=== PATIENT | female | born 1960 | race Caucasian/White ===

== ENCOUNTER 2020-03-11 10:04 | Outpatient (REF) | payer OTHER, SELFPAY ==
--- NOTE | 2020-03-11 | PFT_ITS ---
Forced vital capacity and FEV1 are both moderately decreased. TGE90-09 and MVV are normal. Post bronchodilator therapy, there is no significant change. Total lung capacity and residual volume are both moderately decreased. Diffusion capacity is markedly decreased. CONCLUSION: Moderately severe restrictive pulmonary disorder. No significant obstructive airway disorder. MD TATIANA Lazcano/MODL / [id number]
== END 2020-03-11 10:05 | disposition home or self-care (01) ==
LOC: HO.RESP 10:04
PROVIDERS: Visit Provider Internal Medicine
DX: J45.40 Moderate persistent asthma, uncomplicated (principal)
CPT/HCPCS: 94060; 94727; 94729

== ENCOUNTER → 2020-06-16 13:44 | Outpatient (BNVA) | payer OTHER, SELFPAY | PROVIDERS: PCP Nurse Practitioner Family; Visit Provider Internal Medicine | DX: J44.9 Chronic obstructive pulmonary disease, unspecified (principal); J98.4 Other disorders of lung; J06.0 Acute laryngopharyngitis | CPT/HCPCS: 99212 ==

== ENCOUNTER → 2020-10-14 13:59 | Outpatient (BNVA) | payer OTHER, SELFPAY | PROVIDERS: PCP Nurse Practitioner Family; Visit Provider Internal Medicine | DX: J44.9 Chronic obstructive pulmonary disease, unspecified (principal); J98.4 Other disorders of lung; R09.02 Hypoxemia | CPT/HCPCS: 99212 ==

== ENCOUNTER 2021-01-08 10:45 | Outpatient (REF) | payer OTHER, SELFPAY ==
--- NOTE | ~2021-01-08 | MM_ITS ---
EXAMINATION: MM SCREENING DIGITAL BREAST TOMOSYNTHESIS, BILATERAL CLINICAL INFORMATION: Screening. Asymptomatic. The lifetime risk of breast cancer based on the Tyrer-Cuzick Model is 8%. COMPARISON: Mammography: 04/14/2011 TECHNIQUE: Digital breast tomosynthesis is performed in both the craniocaudal and mediolateral oblique views along with computer-aided detection (CAD). Synthesized 2D images are generated from the tomosynthesis. FINDINGS: There are scattered areas of fibroglandular density (ACR BI-RADS breast composition Category b). Breast tissue composition borders on predominantly fatty. Background fibroglandular and stromal densities are stable. There are no abnormal calcifications. The axilla and skin contours are unremarkable. MM/MM tomosynthesis screening BI IMPRESSION: No mammographic evidence of malignancy. ASSESSMENT: BI-RADS 1: Negative RECOMMENDATION: Routine annual mammography screening. This patient's information was entered into a reminder system with a target due date for their next mammogram.
--- NOTE | ~2021-01-08 | XR_ITS ---
EXAMINATION: XR SHOULDER, LEFT CLINICAL INFORMATION: Fall, trauma, pain left shoulder. COMPARISON: CT chest noncontrast 03/11/2017 TECHNIQUE: The left shoulder is imaged in 4 views. FINDINGS: There is no fracture or dislocation. The acromioclavicular alignment is normal. There are no visible perihumeral rotator cuff calcifications. The left lung shows no pneumothorax or pleural reaction. There is diffuse coarsening of the interstitial markings, new finding since 2017. XR/XR shoulder LT min 2V IMPRESSION: 1. No fracture or dislocation. 2. Coarsening interstitial markings left lung. No pneumothorax.
== END 2021-01-08 10:46 | disposition home or self-care (01) ==
LOC: HO.MAMMO 10:45
PROVIDERS: PCP Nurse Practitioner Family; Visit Provider Nurse Practitioner Family
DX: Z12.31 Encounter for screening mammogram for malignant neoplasm of breast (principal); M25.512 Pain in left shoulder
CPT/HCPCS: 73030; 77063; 77067

== ENCOUNTER → 2021-02-11 13:30 | Outpatient (BNVA) | payer OTHER, SELFPAY | PROVIDERS: PCP Nurse Practitioner Family; Visit Provider Internal Medicine | DX: J44.9 Chronic obstructive pulmonary disease, unspecified (principal); J98.4 Other disorders of lung; R09.02 Hypoxemia; R05 Cough | CPT/HCPCS: 99212 ==

== ENCOUNTER → 2021-03-25 13:45 | Outpatient (BNVA) | payer OTHER, SELFPAY | PROVIDERS: PCP Nurse Practitioner Family; Visit Provider Internal Medicine | DX: J44.9 Chronic obstructive pulmonary disease, unspecified (principal); J98.4 Other disorders of lung; J06.0 Acute laryngopharyngitis; R09.02 Hypoxemia; R05.9 Cough, unspecified | CPT/HCPCS: Q3014 ==

== ENCOUNTER → 2021-07-06 15:36 | Outpatient (BNVA) | payer OTHER, SELFPAY | PROVIDERS: PCP Nurse Practitioner Family; Visit Provider Internal Medicine | DX: J44.9 Chronic obstructive pulmonary disease, unspecified (principal); J98.4 Other disorders of lung; R09.02 Hypoxemia; R05.9 Cough, unspecified | CPT/HCPCS: 99212 ==

== ENCOUNTER → 2021-09-07 10:58 | Outpatient (BNVA) | payer OTHER, SELFPAY | PROVIDERS: PCP Nurse Practitioner Family; Referring Provider Nurse Practitioner Family; Visit Provider Internal Medicine | DX: R06.02 Shortness of breath (principal); J98.8 Other specified respiratory disorders; Z99.81 Dependence on supplemental oxygen | CPT/HCPCS: 93005; 99202 ==

== ENCOUNTER → 2021-09-17 08:41 | Outpatient (REF) | payer OTHER, SELFPAY ==
--- NOTE | 2021-09-17 08:44 | CA_ITS ---
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 Normal LV systolic function with grade 1 diastolic dysfunction 2. Normal cardiac valvular Doppler 3. Normal RV systolic pressure 4. No gross pericardial effusion Findings Left Ventricle Normal left ventricular size, thickness, and systolic function. The visually estimated ejection fraction is between 60-65%. Spectral Doppler is indicative of an impaired relaxation filling pattern. E/E prime ratio is <8, consistent with normal filling pressures. Evidence suggests grade I (mild) diastolic dysfunction. Right Ventricle Normal right ventricular cavity size and systolic function. Atria The left atrium is normal in size. Interatrial shunt cannot be excluded. The right atrium was not well visualized. Aortic Valve Normal aortic valve structure and function. There is no aortic valve stenosis. There is no aortic valve regurgitation. Mitral Valve Normal mitral valve structure and function. There is trace mitral valve regurgitation. There is no mitral valve stenosis. Pulmonic Valve The pulmonic valve was not well visualized. Tricuspid Valve Likely normal tricuspid valve structure and function. There is trace tricuspid valve regurgitation. The right ventricular systolic pressure is normal. The right ventricular systolic pressure is 19 mmHg. Normal right atrial pressure. There is no evidence of pulmonary hypertension. Great Vessels All visible segments of the aorta are normal in size. The pulmonary artery was not well visualized. Venous The inferior vena cava is normal in size and collapses greater than 50% with inspiration. Pericardium/Pleural There is no evidence of pericardial effusion. Prior Study Comparison no previous study in the last 5 years for comparison Measurements 2D Linear Measurements IVSd: 1.02 0.6-0.9/0.6-1.0 cm LVIDd: 3.73 3.9-5.3/4.2-5.9 cm LVIDd Index: 2.29 2.4-3.2/2.2-3.1 cm/m2 LVIDs: 2.26 2.0-3.6 cm LVPWd: 0.98 0.7-1.1 cm LA Diam: 3.10 2.7-3.8/3.0-4.0 cm LAIDs Index: 1.90 1.5-2.3 cm/m2 LV Mass: 141.69 67-162/88-224 g LV Mass Index: 86.92 43-95/49-115 g/m2 LVOT Diam: 2.00 3.0+(-)1.3 cm 2D Systolic Function EF 4C: 65.60 >55% EF 2C: 60.90 >55% EF BiP: 64.10 >55% Mitral Valve MV Pk E: 0.67 MV PK A: 0.56 MV Decel Time: 138.00 E/A: 1.20 E'Lateral: 11.20 E'Medial: 8.05 E/E' Med: 8.30 E/E' Lat: 6.00 PHT: 40.00 MVA PHT: 5.50 Decel Antelope: 4.86 Aortic Valve AoV Pk Tyrese: 1.13 AoV Mn Tyrese: 0.80 AoV VTI: 0.26 AoV Pk Grad: 5.00 Aov Mn Grad: 3.00 JOSE ARMANDO Cont.VTI: 3.12 LVOT LVOT Pk Tyrese: 1.12 LVOT Mn Tyrese: 0.82 LVOT VTI: 0.26 LVOT Pk Grad: 5.00 LVOT Mn Grad: 3.00 LVOT Diam: 2.00 LVOT Area: 3.14 Diastolic Function MV Pk E: 0.67 MV Pk A: 0.56 E/A: 1.20 E'Medial: 8.05 E/E' Med: 8.30 E' Laterial: 11.20 E/E' Lat: 6.00 Right Ventricle TAPSE (mm): 18.40 TVS' Tyrese: 7.29 Tricuspid Valve TR Pk Tyrese: 1.98 TR Pk Grad: 16.00 RA Press: 3.00 RVSP: 19.00 Great Vessels Aorta Sinus of Valsalva: 2.59 2.0-3.[address] Ridge: 2.26 1.7-3.4 cm Ao Asc: 3.30 2.1-3.4 cm Ao Arch: 2.90 Updated in Other Vendor System with Status of Final Quoc Spring MD electronically signed on 09/17/2021 11:37:13 AM with status of Final
== END ==
LOC: HO.CARD 08:41
PROVIDERS: Visit Provider Nurse Practitioner
DX: I51.7 Cardiomegaly (principal)
CPT/HCPCS: 93306

== ENCOUNTER → 2021-10-01 10:34 | Outpatient (BNVA) | payer OTHER, SELFPAY | PROVIDERS: Visit Provider Internal Medicine | DX: J44.9 Chronic obstructive pulmonary disease, unspecified (principal); R05.3 Chronic cough; R09.02 Hypoxemia; J06.0 Acute laryngopharyngitis; J98.4 Other disorders of lung; Z79.899 Other long term (current) drug therapy; Z99.81 Dependence on supplemental oxygen | CPT/HCPCS: 99212 ==

== ENCOUNTER → 2021-10-26 13:42 | Outpatient (BNVA) | payer OTHER, SELFPAY | PROVIDERS: Visit Provider Internal Medicine | DX: J98.4 Other disorders of lung (principal); J44.9 Chronic obstructive pulmonary disease, unspecified; R09.02 Hypoxemia | CPT/HCPCS: 94618; 99212 ==

== ENCOUNTER 2022-01-21 12:01 | Outpatient (REF) | payer OTHER, SELFPAY ==
--- NOTE | ~2022-01-21 | XR_ITS ---
EXAMINATION: XR CHEST 2 VIEWS CLINICAL INFORMATION: Cough. COMPARISON: Chest radiographs dated 02/19/2020; CTA chest dated 03/14/2017. TECHNIQUE: Frontal and lateral views of the chest were obtained. FINDINGS: The heart, great vessels, pulmonary vasculature and mediastinum are normal. There is stable elevation of the right hemidiaphragm. The lungs show no focal infiltrate, effusion or pneumothorax. Mild generalized increase is suspected in interstitial markings. There is no acute osseous abnormality. XR/XR chest 2V IMPRESSION: 1. No focal infiltrate or congestive heart clear seen. 2. Lung volumes are diminished. 3. Mild generalized increase in interstitial markings is suspected, raising the possibility of interstitial lung disease, acute versus chronic. Acute etiologies may include viral pneumonia and a borderline pulmonary edema. Please correlate clinically. Earlier CT examinations including 03/11/2017 did not show significant chronic interstitial lung disease.
== END 2022-01-21 12:02 | disposition home or self-care (01) ==
LOC: HO.XRAY 12:01
PROVIDERS: Visit Provider Internal Medicine
DX: J44.9 Chronic obstructive pulmonary disease, unspecified (principal); J98.4 Other disorders of lung; R09.02 Hypoxemia; R05.9 Cough, unspecified
CPT/HCPCS: 71046; 99212

== ENCOUNTER → 2022-02-22 13:47 | Outpatient (BNVA) | payer OTHER, SELFPAY | PROVIDERS: Visit Provider Internal Medicine | DX: J98.4 Other disorders of lung (principal); J44.9 Chronic obstructive pulmonary disease, unspecified; R09.02 Hypoxemia; R05.9 Cough, unspecified | CPT/HCPCS: 99212 ==

== ENCOUNTER → 2022-03-09 09:30 | Outpatient (REF) | payer OTHER, SELFPAY ==
--- NOTE | ~2022-03-09 | NM_ITS ---
Lexiscan Myocardial perfusion study Indication: Shortness of breath abnormal EKG, assess for ischemia Technique: The patient was brought in for a Lexiscan perfusion study on 03/08/2022 and was injected 0.4 mg of Lexiscan intravenously. Within a minute of this injection 25 mCi of sestamibi was given intravenously. Images were obtained using the SPECT gamma camera interlaced with the gating device. Images were obtained in supine position. Resting perfusion study was performed on 03/10/2022. Patient was administered 25 mCi of sestamibi intravenously at rest. Images were then obtained in supine position. Total DLP 95mGy-cm. Images were processed with the software and compared side to side in short axis, horizontal long axis and vertical long axis views. Findings: Raw acquisition reviewed. The stress perfusion study showed reduced tracer uptake in the mid to distal anterior wall. With CT attenuation correction, there is slight improvement but does not resolve the defect. The gated study shows normal LV systolic function with calculated LVEF of > 70%. LV cavity is normal in size. The gated study shows normal wall thickening and contraction of segments. Resting study shows no significant perfusion defects. Gating at rest reveals normal wall motion with ejection fraction at > 70%. The findings are consistent with reversible defect in the mid to distal anterior wall. NM/NM cardiolite stress test Impression: 1. Myocardial perfusion imaging study shows ischemia in the mid to distal anterior wall. 2. Gated LVEF is > 70% during stress and rest. 3. Transient ischemic dilatation not present. EKG component of the test reported separately.
--- NOTE | 2022-03-09 09:35 | CA_ITS ---
Acquisition Time: 2022-03-09 10:00:05 Total Exercise Time: 00:02:00 Test Indications: SOB Medications: ALBUTEROL CETIRIZINE Protocol: LEXISCAN Max HR: 098 BPM 62% of Pred: 158 BPM Max BP: 128/078 mmHG Max Work Load: 1.0 METS Pharmacological stress test with Lexiscan injection, while sitting, without anginal symptoms, without arrythmia, with normotensive response to injection, with nondiagnostic EKG for ischemia. In recovery she reported feeling weird and was treated with Aminophylline 75mg IVP to reverse Lexiscan with resolution of symptom. Nuclear images pending. Test reviewed with Dr Spring Referred By: Ned Baird Overread By: SALAZAR CALLEJAS
== END ==
LOC: HO.CARD 09:30
PROVIDERS: Visit Provider Internal Medicine
DX: R06.02 Shortness of breath (principal)
CPT/HCPCS: 78452; 93017; A9500; J0280; J2785

== ENCOUNTER 2022-03-23 11:45 | Outpatient (REF) | payer OTHER, SELFPAY ==
[2022-03-23 12:48] LABS: Hemoglobin 14.1 g/dl (12.0-16.0); Mean Corpuscular HGB Conc 31.3 g/dl (31.0-35.0); Mean Corpuscular Hemoglobin 25.5 pg (27.0-33.0); Mean Corpuscular Volume 81.4 fL (80.0-98.0); Platelet Count 428 X10*3/uL (160-400); Red Blood Count 5.53 X10*6/uL (4.20-5.50); Red Cell Distribution Width 15.3 % (11.0-16.0); White Blood Count 13.5 X10*3/uL (4.8-10.8)
[2022-03-23 12:51] LABS: Prothrombin Time 11.7 SEC (10.0-13.1)
[2022-03-23 13:11] LABS: Anion Gap 16 (12-20); Blood Urea Nitrogen 9 mg/dL (9-16); Calcium 10.2 mg/dL (8.4-10.2); Carbon Dioxide 28 mmol/L (22-29); Chloride 103 mmol/L (96-108); Estimated Glomerular Filt Rate > 60; Glucose Random 89 mg/dL (60-115); Potassium 4.4 mmol/L (3.3-5.1); Sodium 143 mmol/L (135-145)
== END 2022-03-23 11:46 | disposition home or self-care (01) ==
LOC: HO.LAB 11:45
PROVIDERS: Visit Provider Internal Medicine
DX: R94.39 Abnormal result of other cardiovascular function study (principal); I25.10 Atherosclerotic heart disease of native coronary artery without angina pectoris
CPT/HCPCS: 36415; 80048; 85027; 85610

== ENCOUNTER → 2022-05-04 10:19 | Outpatient (BNVA) | payer OTHER, SELFPAY | PROVIDERS: Visit Provider Internal Medicine | DX: R94.39 Abnormal result of other cardiovascular function study (principal); I27.20 Pulmonary hypertension, unspecified; R06.02 Shortness of breath; R09.02 Hypoxemia | CPT/HCPCS: 99212 ==

== ENCOUNTER → 2022-06-21 14:14 | Outpatient (BNVA) | payer OTHER, SELFPAY | PROVIDERS: Visit Provider Internal Medicine | DX: J44.9 Chronic obstructive pulmonary disease, unspecified (principal); J98.4 Other disorders of lung; R05.9 Cough, unspecified; R09.02 Hypoxemia; Z99.81 Dependence on supplemental oxygen | CPT/HCPCS: 99212 ==

== ENCOUNTER → 2022-10-25 14:14 | Outpatient (BNVA) | payer OTHER, SELFPAY | PROVIDERS: Visit Provider Internal Medicine | DX: J44.9 Chronic obstructive pulmonary disease, unspecified (principal); J98.4 Other disorders of lung; R05.9 Cough, unspecified; R09.02 Hypoxemia; Z99.81 Dependence on supplemental oxygen | CPT/HCPCS: 99212 ==

== ENCOUNTER 2023-01-27 09:16 | Outpatient (AMB) | payer OTHER, SELFPAY ==
[2023-01-27 09:19] VITALS: BP 136/72; PULSE 85; O2SAT 100; BMI 31.8
--- NOTE | 2023-01-27 09:19 | MHC.OFFVIS ---
Intake Vital Signs 01/27/23 09:19 Height 4 ft 11 in Weight 157 lb 10.088 oz BMI 31.8 BP 136/72 Blood Pressure Location Lt brachial Position Sitting Pulse 85 Pulse Source Pulse Oximeter Pulse Oximetry (%) 100 Oxygen Delivery Method Nasal Cannula Oxygen Flow Rate 2 Intake Visit Reasons: cough Allergies amoxicillin [Amoxicillin] Allergy (Unknown, Verified 01/27/23 09:28) UNKNOWN clavulanic acid [Augmentin] Allergy (Unknown, Verified 01/27/23 09:28) Unknown penicillin G [PENICILLIN G] Allergy (Unknown, Verified 01/27/23 09:28) UNKNOWN Medication List - Last Reconciled 01/27/23 by Heladio Gallego MD albuterol sulfate 2.5 mg (3 mL) inhalation Q4-6H PRN albuterol sulfate 90 mcg/actuation 2 puffs inhalation Q4H PRN Breo Ellipta 200-25 mcg/dose (fluticasone furoate-vilanterol) 1 ea PO DAILY NS cetirizine 10 mg PO DAILY PRN levothyroxine 75 mcg PO DAILY he-fg-cbopo-lutein-herbal 293 80 mcg-166.7 mcg-66.7 mg (Alive Premium Women's 50 Plus) tabs PO nystatin 5 mL PO DAILY PRN nystatin 500,000 units PO TID 10 days Do you need a note to return to daycare/school/sports/work: No HPI cough HPI Details 62 years old female, with chronic interstitial lung disease, respiratory insufficiency, allergic rhinitis, and ongoing cough , She comes in today for an urgent visit because of increased cough in the last few days. Denies fever chills or expectoration. She is also not more short of breath than usual. She think she had sore throat but has had no fever. No mucopurulent mucus. Oxygen requirement has been 2 L/minute. [facility] Medical History Cough Hypoxemia Obstructive airway disease Restrictive airway disease Sore throat and laryngitis Surgical History History of tubal ligation Family History Father No problems noted. Mother Atrial fibrillation Brother Heart valve replaced Social History Patient Tobacco Use Status: Never used Tobacco Review of Systems Const All systems reviewed & are unremarkable except as noted in HPI and below Eyes Reports no additional complaints ENT Reports nasal congestion (MILD INTERMITTENT) and Reports sore throat (QUITE FREQUENT, OFF AND ON AND MAINLY DUE TO THRUSH.) Card Denies chest pain, Denies leg edema and Reports dyspnea on exertion Resp Reports as per HPI and Reports dyspnea on exertion GI Reports no additional complaints Reports no additional complaints Musc Reports no additional complaints Skin/Breast Reports system reviewed and no additional complaints, except as documented Neuro Reports no additional complaints Psych Reports no additional complaints Physical Exam Vital Signs: Last Vital Signs Pulse 85 01/27/23 09:19 BP 136/72 01/27/23 09:19 Pulse Ox 100 01/27/23 09:19 Oxygen Delivery Method Nasal Cannula 01/27/23 09:19 Oxygen Flow Rate 2 01/27/23 09:19 BMI result Body Mass Index 31.8 Const General: comfortable, no acute distress, alert and awake Orientation/consciousness: patient oriented x3 HEENT Head: Yes normal to inspection General nose exam: No nasal polyps present and No nasal discharge present Face and sinus: Yes sinuses nontender Mouth: oropharynx normal (There is no redness or swelling.) Teeth and gingiva: edentulous (S/P MULTIPLE EXTRACTIONS.) Throat: Yes posterior oropharynx normal Eyes General: appearance normal, both eyes and all related structures Neck Neck: Yes normal visual inspection, Yes no lymphadenopathy, Yes trachea midline and Yes no JVD Thyroid: Thyroid normal Chest Chest palpation & inspection: normal inspection of the chest, normal palpation of entire chest wall and no tenderness Resp Other: PERCUSSION NOTE RESONANT, BREATH SOUNDS ARE SLIGHTLY DISTANT WITH PROLONGED EXPIRATORY PHASE. BOTH LUNGS ARE CLEAR TODAY WITHOUT ANY WHEEZES OR RHONCHI.A FEW FINE CREPS, OVER THE RT BASE . Cardio Palpation: normal PMI Rate: regular rate Rhythm: regular rhythm Heart sounds: no gallops and no murmurs GI Palpation (GI): Soft to palpation, nontender, No hepatosplenomegaly present and no masses Auscultation: normal bowel sounds Back/Spine/Pelvis Thoracic/Lumbar Spine: thoracic and lumbar spine normal to inspection Skin General skin exam: no rashes or lesions noted Neuro General: patient oriented x3 and no focal motor deficits Cranial nerves: Yes CN's II-XII intact bilaterally Extrem General: Yes normal to inspection, Yes no clubbing, cyanosis or edema and Yes no calf tenderness Psych Appearance: grossly normal and well kempt Speech and movement: Normal speech and movement present Assessment & Plan Assessment & Plan (1) Restrictive airway disease: Comment: Post pneumonitis in 2016 . She has had restrictive lung disease., moderately severe. It is remaining relatively stable. Advised to do deep breathing exercises with the incentive spirometer, 3 times a day. Code(s): J98.4 - Other disorders of lung (2) Obstructive airway disease: Comment: Mild, but she has frequent cough, representing reactive airways RX continue using Breo-200 1 inhalation daily . and use albuterol HFA 2 puffs Q 4-6 hours p.r.n. / alternatively she may use albuterol in the nebulizer Q 4-6 hours p.r.n. * DUE TO USE OF BREO, SHE IS PRONE TO HAVE MILD ORAL THRUSH OFF AND ON, WHEN THAT HAPPENS SHE IS ADVISED TO STOP USING BREO FOR A FEW DAYS AND USE STATIN TABLETS 500,000 UNITS TID PRN . Code(s): J44.9 - Chronic obstructive pulmonary disease, unspecified (3) Hypoxemia: Comment: PATIENT HAS CHRONIC HYPOXEMIA SINCE 2015 WHEN SHE HAD ACUTE INTERSTITIAL LUNG DISEASE. AFTER THE COVID INFECTION IN NOVEMBER 2021 , HER O2 REQUIREMENT HAS INCREASED AND SHE USES 3 L/MINUTE. RX : ADVISED TO CONTINUE USING 3 L/MINUTE WHEN OUTDOORS. AND IN THE HOUSE MAY CUT DOWN TO 2 L/MINUTE. Code(s): R09.02 - Hypoxemia (4) Cough: Comment: CHRONIC COUGH DUE TO COMBINATION OF COPD, MILD ,RESTRICTIVE PULMONARY DISORDER AND REACTIVE AIRWAYS . TX : PATIENT DOES HAVE A NEBULIZER, AND SHE CAN USE ALBUTEROL SOLUTION Q 4-6 HOURS P.R.N. IF SHE HAS SUSTAINED COUGH . ALSO ADVISED TO USE MUCINEX TABLET OR LIQUID 400 MG B.I.D. P.R.N. FOR INCREASED COUGH . Code(s): R05 - Cough Coding Level of Care Code Est Pt Level 3 (84648) Diagnoses Restrictive airway disease J98.4 Obstructive airway disease J44.9 Hypoxemia R09.02 Cough R05
== END 2023-01-27 09:37 | disposition home or self-care (01) ==
PROVIDERS: Visit Provider Internal Medicine
DX: J98.4 Other disorders of lung (principal); J44.9 Chronic obstructive pulmonary disease, unspecified; R09.02 Hypoxemia; R05.9 Cough, unspecified
CPT/HCPCS: 99213

== ENCOUNTER → 2023-01-27 09:16 | Outpatient (BNVA) | payer OTHER, SELFPAY | PROVIDERS: Visit Provider Internal Medicine | DX: J98.4 Other disorders of lung (principal); J44.9 Chronic obstructive pulmonary disease, unspecified; R09.02 Hypoxemia | CPT/HCPCS: 99212 ==

== ENCOUNTER 2023-07-26 09:54 | Outpatient (REF) | payer OTHER, SELFPAY ==
[2023-07-26 10:45] LABS: MANUAL DIFF FLAG NO
[2023-07-26 10:51] LABS: Venous Blood Gas Refer to POC result
[2023-07-26 10:51] LABS: VBG Base Excess 4.7 mmol/L; VBG HCO3 31 mmol/L (22-26); VBG pCO2 56 mmHg; VBG pH 7.35 (7.32-7.43); VBG pO2 31 mmHg
[2023-07-26 11:45] LABS: Basophils Absolute Auto 0.1 X10*3/uL (0.0-0.2); Basophils Percent Auto 0.7 % (0-2); Eosinophils Absolute Auto 0.5 X10*3/uL (0.0-0.4); Eosinophils Percent Auto 3.6 % (0-4); Hematocrit 42.4 % (37.0-47.0); Hemoglobin 13.8 g/dl (12.0-16.0); Imm Gran Abs Auto 0.05 X10*3/uL (0.00-0.03); Imm Gran Pct Auto 0.4 % (0.0-0.4); Lymphocytes Absolute Auto 3.8 X10*3/uL (1.2-4.9); Mean Corpuscular HGB Conc 32.5 g/dl (31.0-35.0); Mean Corpuscular Hemoglobin 27.3 pg (27.0-33.0); Mean Corpuscular Volume 83.8 fL (80.0-98.0); Mean Platelet Volume 12.2 fL (9.4-12.3); Monocytes Absolute Auto 1.1 X10*3/uL (0.1-1.2); Neutrophils Absolute Auto 7.1 x10*3/uL (2.0-8.3); Neutrophils Percent Auto 56.3 % (45-73); Platelet Count 174 X10*3/uL (160-400); Red Blood Count 5.06 X10*6/uL (4.20-5.50); Red Cell Distribution Width 15.1 % (11.0-16.0); White Blood Count 12.7 X10*3/uL (4.8-10.8)
[2023-07-26 12:25] LABS: Anion Gap 11 (12-20); Blood Urea Nitrogen 9 mg/dL (9-16); Calcium 9.2 mg/dL (8.4-10.2); Carbon Dioxide 29 mmol/L (22-29); Chloride 107 mmol/L (96-108); Estimated Glomerular Filt Rate > 60; Glucose Random 84 mg/dL (60-115); Potassium 3.9 mmol/L (3.3-5.1); Sodium 143 mmol/L (135-145)
[2023-07-26 12:29] LABS: TSH reflex Free T4 0.77 uIU/mL (0.32-4.0)
== END 2023-07-26 09:55 | disposition home or self-care (01) ==
LOC: HO.LAB 09:54
PROVIDERS: PCP Nurse Practitioner Family; Visit Provider Internal Medicine
DX: R53.83 Other fatigue (principal); J98.4 Other disorders of lung; J44.9 Chronic obstructive pulmonary disease, unspecified; R09.02 Hypoxemia; R05.9 Cough, unspecified; J84.9 Interstitial pulmonary disease, unspecified
CPT/HCPCS: 36415; 80048; 82803; 84443; 85025; 99212

== ENCOUNTER 2023-07-26 09:54 | Outpatient (AMB) | payer OTHER, SELFPAY ==
[2023-07-26 09:59] VITALS: BP 130/70; PULSE 78; O2SAT 97; BMI 33.2
--- NOTE | 2023-07-26 09:59 | MHC.OFFVIS ---
Intake Vital Signs 07/26/23 09:59 Height 4 ft 11 in Weight 164 lb 3.91 oz BMI 33.2 BP 130/70 Blood Pressure Location Lt brachial Position Sitting Pulse 78 Pulse Source Pulse Oximeter Pulse Oximetry (%) 97 Oxygen Delivery Method Room Air Intake Visit Reasons: copd Intake Note: pt is here for follow up and states she has a cough for 2 weeks on/off, a lot of fatigue, sleeping a lot. Rouge Presser Required: No Allergies amoxicillin [Amoxicillin] Allergy (Unknown, Verified 07/26/23 10:08) UNKNOWN clavulanic acid [Augmentin] Allergy (Unknown, Verified 07/26/23 10:08) Unknown penicillin G [PENICILLIN G] Allergy (Unknown, Verified 07/26/23 10:08) UNKNOWN Medication List - Last Reconciled 07/26/23 by Heladio Gallego MD albuterol sulfate 2.5 mg (3 mL) inhalation Q4-6H PRN albuterol sulfate 90 mcg/actuation 2 puffs inhalation Q4H PRN Breo Ellipta 200-25 mcg/dose (fluticasone furoate-vilanterol) 1 ea PO DAILY NS cetirizine 10 mg PO DAILY PRN levothyroxine 75 mcg PO DAILY hx-lt-qjsnv-lutein-herbal 293 80 mcg-166.7 mcg-66.7 mg (Alive Premium Women's 50 Plus) tabs PO nystatin 5 mL PO DAILY PRN Do you need a note to return to daycare/school/sports/work: No HPI copd HPI Details 63 YEARS OLD FEMALE, comes today for her routine follow-up, But complains of. Cough most of the time, without any evidence of recent infection. Remains tired, wonders if she has thyroid dysfunction. Getting more short of breath than usual. Uses oxygen 2 L/minute portable. And at home as well as at night Always has a scratchy feeling in the throat. She is prone to have allergies, ,nonspecific also prone to have oral thrush. [facility] Medical History ILD (interstitial lung disease) Fatigue Cough Hypoxemia Sore throat and laryngitis Obstructive airway disease Restrictive airway disease Surgical History History of tubal ligation Family History Father No problems noted. Mother Atrial fibrillation Brother Heart valve replaced Social History Patient Tobacco Use Status: Never used Tobacco Review of Systems Const All systems reviewed & are unremarkable except as noted in HPI and below Eyes Reports no additional complaints ENT Reports nasal congestion (MILD INTERMITTENT) and Reports sore throat (QUITE FREQUENT, OFF AND ON AND MAINLY DUE TO THRUSH.) Card Denies chest pain, Denies leg edema and Reports dyspnea on exertion Resp Reports as per HPI and Reports dyspnea on exertion GI Reports no additional complaints Reports no additional complaints Musc Reports no additional complaints Skin/Breast Reports system reviewed and no additional complaints, except as documented Neuro Reports no additional complaints Psych Reports no additional complaints Physical Exam Vital Signs: Last Vital Signs Pulse 78 07/26/23 09:59 BP 130/70 07/26/23 09:59 Pulse Ox 97 07/26/23 09:59 Oxygen Delivery Method Room Air 07/26/23 09:59 BMI result Body Mass Index 33.2 Const General: comfortable, no acute distress, alert and awake Orientation/consciousness: patient oriented x3 HEENT Head: Yes normal to inspection General nose exam: No nasal polyps present and No nasal discharge present Face and sinus: Yes sinuses nontender Mouth: oropharynx normal (There is no redness or swelling.) Teeth and gingiva: edentulous (S/P MULTIPLE EXTRACTIONS.) Throat: Yes posterior oropharynx normal and Yes other (No evidence of any thrush at this time) Eyes General: appearance normal, both eyes and all related structures Neck Neck: Yes normal visual inspection, Yes no lymphadenopathy, Yes trachea midline and Yes no JVD Thyroid: Thyroid normal Chest Chest palpation & inspection: normal inspection of the chest, normal palpation of entire chest wall and no tenderness Resp Other: PERCUSSION NOTE RESONANT, BREATH SOUNDS ARE SLIGHTLY DISTANT WITH PROLONGED EXPIRATORY PHASE. BOTH LUNGS ARE CLEAR TODAY WITHOUT ANY WHEEZES OR RHONCHI.A FEW FINE CREPS, OVER THE RT BASE . SHE DOES GET COUGH WHEN SHE TAKES A DEEP BREATH. Cardio Palpation: normal PMI Rate: regular rate Rhythm: regular rhythm Heart sounds: no gallops and no murmurs GI Palpation (GI): Soft to palpation, nontender, No hepatosplenomegaly present and no masses Auscultation: normal bowel sounds Back/Spine/Pelvis Thoracic/Lumbar Spine: thoracic and lumbar spine normal to inspection Skin General skin exam: no rashes or lesions noted Neuro General: patient oriented x3 and no focal motor deficits Cranial nerves: Yes CN's II-XII intact bilaterally Extrem General: Yes normal to inspection, Yes no clubbing, cyanosis or edema and Yes no calf tenderness Psych Appearance: grossly normal and well kempt Speech and movement: Normal speech and movement present Assessment & Plan Assessment & Plan (1) Restrictive airway disease: Comment: Post pneumonitis in 2016 . She has had restrictive lung disease., moderately severe. It is remaining relatively stable. Code(s): J98.4 - Other disorders of lung Plan: Advised to do deep breathing exercises with the incentive spirometer, 3 times a day. (2) Obstructive airway disease: Comment: Mild, but she has frequent cough, representing reactive airways Code(s): J44.9 - Chronic obstructive pulmonary disease, unspecified Plan: RX continue using Breo-200 1 inhalation daily . and use albuterol HFA 2 puffs Q 4-6 hours p.r.n. / alternatively she may use albuterol in the nebulizer Q 4-6 hours p.r.n. * DUE TO USE OF BREO, SHE IS PRONE TO HAVE MILD ORAL THRUSH OFF AND ON, WHEN THAT HAPPENS SHE IS ADVISED TO HOLD USING BREO FOR A WEEK AT A TIME , AND USE THE NYSTATIN SWISHES T.I.D. COMPLETE LAB IS ORDER TO EVALUATE, THE ETIOLOGY OF HER ONGOING GENERAL FATIGUE. ALSO COMPLETE PULMONARY FUNCTION TEST TO BE PERFORMED (3) Hypoxemia: Comment: PATIENT HAS CHRONIC HYPOXEMIA SINCE 2015 WHEN SHE HAD ACUTE INTERSTITIAL LUNG DISEASE. AFTER THE COVID INFECTION IN NOVEMBER 2021 , HER O2 REQUIREMENT HAS INCREASED AND SHE USES 3 L/MINUTE. Code(s): R09.02 - Hypoxemia Plan: RX : ADVISED TO CONTINUE USING 3 L/MINUTE WHEN OUTDOORS. AND IN THE HOUSE MAY CUT DOWN TO 2 L/MINUTE. (4) Cough: Comment: CHRONIC COUGH DUE TO COMBINATION OF COPD, MILD ,RESTRICTIVE PULMONARY DISORDER AND REACTIVE AIRWAYS . Code(s): R05 - Cough Plan: TX : PATIENT DOES HAVE A NEBULIZER, AND SHE CAN USE ALBUTEROL SOLUTION Q 4-6 HOURS P.R.N. IF SHE HAS SUSTAINED COUGH . ALSO ADVISED TO USE MUCINEX TABLET OR LIQUID 400 MG B.I.D. P.R.N. FOR INCREASED COUGH . (5) ILD (interstitial lung disease): Comment: CHEST X-RAYS HAVE SHOWN INCREASED BRONCHOVASCULAR MARKINGS ESPECIALLY IN THE LOWER LOBES, SHE HAS PREVIOUS HISTORY OF ALVEOLITIS . Code(s): J84.9 - Interstitial pulmonary disease, unspecified Plan: CT SCAN OF THE CHEST IS ORDERED TO ASSESS THE CURRENT SITUATION, IF AND HOW MUCH INTERSTITIAL LUNG DISEASE SHE HAS NOW. Orders: Orders Complete Blood Count Auto Diff Today J44.9 - Chronic obstructive pulmonary disease, unspecified, R05 - Cough, R06.02 - Shortness of breath, R09.02 - Hypoxemia Basic Metabolic Panel Today J44.9 - Chronic obstructive pulmonary disease, unspecified, R05 - Cough, R06.02 - Shortness of breath, R09.02 - Hypoxemia TSH reflex Free T4 Today J44.9 - Chronic obstructive pulmonary disease, unspecified, R53.83 - Other fatigue Venous Blood Gas Today J44.9 - Chronic obstructive pulmonary disease, unspecified, J98.4 - Other disorders of lung, R09.02 - Hypoxemia CT chest wo IV con Today I27.20 - Pulmonary hypertension, unspecified, J84.9 - Interstitial pulmonary disease, unspecified, J98.4 - Other disorders of lung, R05 - Cough, R09.02 - Hypoxemia PFT pulmonary function test Today Coding Level of Care Code Est Pt Level 4 (91428) Diagnoses Restrictive airway disease J98.4 Obstructive airway disease J44.9 Hypoxemia R09.02 Cough R05 ILD (interstitial lung disease) J84.9
== END 2023-07-26 10:20 | disposition home or self-care (01) ==
PROVIDERS: PCP Nurse Practitioner Family; Visit Provider Internal Medicine
DX: J98.4 Other disorders of lung (principal); J44.9 Chronic obstructive pulmonary disease, unspecified; R09.02 Hypoxemia; R05.9 Cough, unspecified; J84.9 Interstitial pulmonary disease, unspecified
CPT/HCPCS: 99214

== ENCOUNTER 2023-09-07 12:03 | Emergency (ER) | payer OTHER, SELFPAY ==
--- NOTE | ~2023-09-07 | XR_ITS ---
EXAMINATION: XR CHEST CLINICAL INFORMATION: Cough COMPARISON: 01/21/2022 TECHNIQUE: 2 views of the chest were obtained. FINDINGS: Lungs are mildly hypoinflated. The right hemidiaphragm is chronically mildly elevated. No evidence of interstitial infiltrate, consolidation or pleural effusion. Cardiomediastinal silhouette has normal size and contour. The visualized bones and upper abdomen are unremarkable. XR/XR chest 2V IMPRESSION: No acute pulmonary disease.
--- NOTE | 2023-09-07 12:16 | ED_ITS ---
HPI - General Adult General Chief complaint: Recheck/Abnormal Lab/Rx Stated complaint: Thyroid check Time Seen by Provider: 09/07/23 16:18 Source: patient, RN notes reviewed and old records reviewed Mode of arrival: ambulatory Limitations: no limitations History of Present Illness HPI narrative: This is a 63-year-old female, with a history of hypothyroidism and interstitial lung disease, who presents emergency department for medication refill. She also endorses a cough for several months. Patient reports that she ran out of her levothyroxine about a month ago. She states that she has had increased fatigue has felt as though she has gained weight. She also reports that she has had this cough for quite awhile, worsening over the last several weeks. Denies any fevers, chills, shortness of breath, chest pain, abdominal pain, nausea, vomiting or diarrhea. Denies seeing an dipper operator for her thyroid. She states that she has not seen a provider in several months, reports that her PCP left the office and she does not want to see anyone else in that office. No other complaints or concerns at this time. MD complaint: Med refill, cough Relieving factors: none Exacerbating factors: none Associated symptoms: denies other symptoms Treatments prior to arrival: none Related Data Home Medications Medication Instructions Recorded Confirmed levothyroxine 75 mcg capsule 75 mcg PO DAILY 06/16/20 10/25/22 cetirizine 10 mg tablet 10 mg PO DAILY PRN 10/01/21 10/25/22 [id number] 80 mcg-lutein tab PO 10/01/21 10/25/22 166.7 mcg-herbal 66.7 mg chew tablet (Alive Premium Women's 50 Plus) Previous Rx's Medication Instructions Recorded albuterol sulfate 90 mcg/actuation 2 puff inhalation Q4H PRN for 12/28/22 aerosol inhaler wheezing #42.5 grams nystatin 100,000 unit/mL oral 5 ml PO DAILY PRN for candidiasis 06/27/23 suspension #180 mL albuterol sulfate 2.5 mg/3 mL 2.5 mg (3 mL) inhalation Q4-6H PRN 07/26/23 (0.083 %) solution for nebulization shortness of breath or wheezing #180 mL Breo Ellipta 200 mcg-25 mcg/dose 1 ea PO DAILY #60 ea 08/16/23 powder for inhalation (fluticasone furoate-vilanterol) levothyroxine 50 mcg capsule 50 mcg PO DAILY 30 days #30 caps 09/07/23 Allergies Allergy/AdvReac Type Severity Reaction Status Date / Time amoxicillin [Amoxicillin] Allergy Unknown UNKNOWN Verified 07/26/23 10:08 clavulanic acid [Augmentin] Allergy Unknown Unknown Verified 07/26/23 10:08 penicillin G [PENICILLIN G] Allergy Unknown UNKNOWN Verified 07/26/23 10:08 Review of Systems 2 Review of Systems: Yes all other systems are reviewed and are negative Constitutional: Constitutional: Reports as per [facility] Past Medical History Attestation statement: The following information was validated with the patient. Medical History ILD (interstitial lung disease) Fatigue Cough Hypoxemia Sore throat and laryngitis Obstructive airway disease Restrictive airway disease Surgical History History of tubal ligation Family History Family History Father No problems noted. Mother Atrial fibrillation Brother Heart valve replaced Social History Social History Patient Tobacco Use Status: Never used Tobacco Advance Directives: No Advance Directives Information Provided: No Physical Exam ED Vital Signs: Vital Signs - 24 hr 09/07/23 12:17 09/07/23 16:37 Temperature 96.8 F 97.5 F Pulse Rate 68 58 Respiratory Rate 20 20 Blood Pressure 175/79 H 175/72 H Pulse Oximetry 97 98 Oxygen Delivery Method Nasal Cannula Nasal Cannula Oxygen Flow Rate 2 BMI result Body Mass Index 32.7 Const General: cooperative, comfortable and no acute distress Orientation/consciousness: patient oriented x3 Limitations: no limitations HENMT Head: Yes normal to inspection, Yes normocephalic and Yes atraumatic Ears: hearing grossly normal bilaterally General nose exam: Normal external nose present Face and sinus: Yes normal facial exam Mouth: Normal oral and palatal mucosa present, oropharynx normal and moist mucous membranes Throat: Yes posterior oropharynx normal Eyes General: appearance normal, both eyes and all related structures Eyelids: Yes eyelids normal Conjunctivae: conjunctivae normal Sclerae: sclerae normal Pupils: Equal, round and reactive pupils present EOM: EOMs intact bilaterally Neck Neck: Yes normal visual inspection, Yes full ROM and Yes no lymphadenopathy Lymphatic: no lymphadenopathy noted Chest Chest palpation & inspection: normal inspection of the chest Resp Effort & Inspection: normal respiratory effort and able to speak in complete sentences Auscultation: clear to auscultation bilaterally, no crackles, no rales, no rhonchi and no wheezes Cardio Rate: regular rate Rhythm: regular rhythm Heart sounds: S1 normal heart sound present and S2 normal heart sound present GI Inspection: Yes normal to inspection Skin General skin exam: no rashes or lesions noted Trauma: no lacerations or abrasions Wounds: no wounds Neuro General: patient oriented x3 and moves all extremities Cranial nerves: Yes Equal, round and reactive pupils present Extrem General: Yes normal to inspection Right upper extremity: normal to inspection Left upper extremity: normal to inspection Right lower extremity: normal to inspection Left lower extremity: normal to inspection Course Reevaluation(s) Reevaluation #1: Chest x-ray unremarkable. TSH elevated at 18. Discussed findings with patient. Also discussed with my attending physician, Dr. Vanegas. Will start on levothyroxine 50 mcg. Patient also given referral to endocrinology and encouraged follow-up with primary care physician. She understands and agrees with plan. Patient stable for discharge Medical Decision Making Medical Decision Making [facility] Narrative: This is a 63-year-old female, with a history of hypothyroidism and interstitial lung disease, who presents emergency department for medication refill and chronic cough. On arrival, patient nontoxic appearing, lungs clear to auscultation bilaterally, speaking in sentences under no acute respiratory distress. Patient reports that she has been without her levothyroxine for the last month. She does not have a primary care physician or an dipper operator to follow her thyroid disease. Plan: Labs, chest x-ray, viral swabs Differential Diagnosis Differential Diagnoses: The differential diagnosis associated with the presentation includes Hyperthyroidism, high both thyroidism, subclinical hypothyroidism, thyroid storm, viral syndrome, bronchitis, pneumonia Admission/Observation Consideration of admission/observation: Escalation of care including admission/observation considered Lab Data [facility] Lab Attestation statement: I reviewed the patient's lab results. Slight leukocytosis noted at 14.7, chemistry within normal limits. Alk phos slightly elevated at 131, no previous for comparison. TSH elevated at 18.83, free T4 point 5 2. Consistent with hypothyroidism 09/07/23 13:16 09/07/23 13:16 Labs: Lab Results 09/07/23 Range/Units 13:16 WBC 14.7 H (4.8-10.8) X10*3/uL RBC 5.39 (4.20-5.50) X10*6/uL Hgb 14.4 (12.0-16.0) g/dl Hct 44.5 (37.0-47.0) % MCV 82.6 (80.0-98.0) fL MCH 26.7 L (27.0-33.0) pg MCHC 32.4 (31.0-35.0) g/dl RDW 14.7 (11.0-16.0) % Plt Count 320 D (160-400) X10*3/uL MPV 10.8 (9.4-12.3) fL Immature Gran % (Auto) 0.5 H (0.0-0.4) % Neut % (Auto) 64.9 (45-73) % Lymph % (Auto) 24.9 (20-40) % [place]wood % (Auto) 5.9 (2-11) % Eos % (Auto) 3.3 (0-4) % Baso % (Auto) 0.5 (0-2) % Lymph # (Auto) 3.7 (1.2-4.9) X10*3/uL [place]wood # (Auto) 0.9 (0.1-1.2) X10*3/uL Eos # (Auto) 0.5 H (0.0-0.4) X10*3/uL Baso # (Auto) 0.1 (0.0-0.2) X10*3/uL Abs Immat Gran (auto) 0.07 H (0.00-0.03) X10*3/uL Absolute Neuts (auto) 9.5 H (2.0-8.3) x10*3/uL Absolute Nucleated RBC 0.000 (0.0-0.012) X10*3/uL Nucleated RBC % (auto) 0.0 (0.0-0.2) /100WBC Sodium 142 (135-145) mmol/L Potassium 4.5 (3.3-5.1) mmol/L Chloride 104 (96-108) mmol/L Carbon Dioxide 29 (22-29) mmol/L Anion Gap 14 (12-20) BUN 8 L (9-16) mg/dL Creatinine 0.76 (0.5-1.4) mg/dL Estim Creat Clear Calc 65.3 Estimated GFR > 60 Random Glucose 89 (60-115) mg/dL Calcium 9.8 D (8.4-10.2) mg/dL Total Bilirubin 0.3 (0.0-1.0) mg/dL Direct Bilirubin 0.1 (0.0-0.5) mg/dL AST 24 (5-31) U/L ALT 17 (0-31) U/L Alkaline Phosphatase 131 H (39-117) U/L Total Protein 7.4 (6.5-8.0) g/dL Albumin 4.3 (3.5-5.0) g/dL TSH 18.83 H (0.32-4.0) uIU/mL Free T4 0.52 L (0.71-1.85) ng/dL Influenza Type A (PCR) NEGATIVE (Negative) Influenza Type B (PCR) NEGATIVE (Negative) RSV RNA Qual (PCR) NEGATIVE (Negative) SARS-CoV-2 RNA (RT-PCR) NEGATIVE (Negative) Radiology Impression Discussion of test interpretation with radiology: I have reviewed the radiologist's reading. External Record Review External record reviewed: Inpatient record, Office record, Outpatient record, Prior outpatient labs, Prior outpatient radiology, Primary care record and Outside ED record Discharge Plan Discharge Clinical Impression: Hypothyroidism, Cough Patient Disposition: Home, Self-Care Instructions: Hypothyroidism (ED), Acute Cough (ED) Additional Instructions: Your seen in the emergency department due to running out of your thyroid medication and cough. You tested negative for COVID, flu, RSV. Your chest x-ray does not show pneumonia. Your TSH was 18.83, which means that you need to be taking thyroid medication. We are starting him on a lower dose as you have been without this medication for too long and we are unable to restart you on the dose you were previously on. You need to follow-up with an dipper operator, call tomorrow to make an appointment. If any new or worsening symptoms occur including but not limited to chest pain, shortness breath, please return for re-evaluation. Prescriptions: New levothyroxine 50 mcg capsule 50 mcg PO DAILY 30 Days Qty: 30 0RF No Action albuterol sulfate 90 mcg/actuation HFA aerosol inhaler 2 puff inhalation Q4H PRN (Reason: for wheezing) Qty: 42.5 0RF nystatin 100,000 unit/mL suspension 5 ml PO DAILY PRN (Reason: for candidiasis) Qty: 180 2RF Breo Ellipta 200-25 mcg/dose blister with device 1 ea PO DAILY Qty: 60 0RF levothyroxine 75 mcg capsule 75 mcg PO DAILY cetirizine 10 mg tablet 10 mg PO DAILY PRN Alive Premium Women's 50 Plus 80 mcg-166.7 mcg-66.7 mg tablet,chewable PO albuterol sulfate 2.5 mg /3 mL (0.083 %) solution for nebulization 2.5 mg inhalation Q4-6H PRN (Reason: shortness of breath or wheezing) Qty: 180 5RF Referrals: [facility] [Provider Group] [facility] [Physician] - Interventions: ED Discharge Assessment Last Done: 09/07/23 16:37 Discharge Date/Time: 09/07/23 16:39
[2023-09-07 12:17] VITALS: BP 175/79; PULSE 68; RESP 20; TEMP 36; O2SAT 97; BMI 32.7
[2023-09-07 13:21] LABS: MANUAL DIFF FLAG NO
[2023-09-07 13:25] LABS: Basophils Absolute Auto 0.1 X10*3/uL (0.0-0.2); Basophils Percent Auto 0.5 % (0-2); Eosinophils Absolute Auto 0.5 X10*3/uL (0.0-0.4); Eosinophils Percent Auto 3.3 % (0-4); Hematocrit 44.5 % (37.0-47.0); Hemoglobin 14.4 g/dl (12.0-16.0); Imm Gran Abs Auto 0.07 X10*3/uL (0.00-0.03); Imm Gran Pct Auto 0.5 % (0.0-0.4); Lymphocytes Absolute Auto 3.7 X10*3/uL (1.2-4.9); Lymphocytes Percent Auto 24.9 % (20-40); Mean Corpuscular HGB Conc 32.4 g/dl (31.0-35.0); Mean Corpuscular Hemoglobin 26.7 pg (27.0-33.0); Mean Corpuscular Volume 82.6 fL (80.0-98.0); Mean Platelet Volume 10.8 fL (9.4-12.3); Monocytes Absolute Auto 0.9 X10*3/uL (0.1-1.2); Monocytes Percent Auto 5.9 % (2-11); Neutrophils Absolute Auto 9.5 x10*3/uL (2.0-8.3); Neutrophils Percent Auto 64.9 % (45-73); Platelet Count 320 X10*3/uL (160-400); Red Blood Count 5.39 X10*6/uL (4.20-5.50); Red Cell Distribution Width 14.7 % (11.0-16.0); White Blood Count 14.7 X10*3/uL (4.8-10.8)
[2023-09-07 13:49] LABS: Alanine Aminotransferase 17 U/L (0-31); Albumin Level 4.3 g/dL (3.5-5.0); Alkaline Phosphatase 131 U/L (39-117); Anion Gap 14 (12-20); Aspartate Amino Transferase 24 U/L (5-31); Bilirubin Direct 0.1 mg/dL (0.0-0.5); Bilirubin Total 0.3 mg/dL (0.0-1.0); Blood Urea Nitrogen 8 mg/dL (9-16); Calcium 9.8 mg/dL (8.4-10.2); Carbon Dioxide 29 mmol/L (22-29); Chloride 104 mmol/L (96-108); Creatinine Clr Calc Pharmacy 65.3; Estimated Glomerular Filt Rate > 60; Glucose Random 89 mg/dL (60-115); Potassium 4.5 mmol/L (3.3-5.1); Sodium 142 mmol/L (135-145); Total Protein 7.4 g/dL (6.5-8.0)
[2023-09-07 14:02] LABS: Influenza A PCR NEGATIVE (Negative); Influenza B PCR NEGATIVE (Negative); Resp Syncy Virus RNA Qual PCR NEGATIVE (Negative); SARS COV2 PCR INHOUSE NEGATIVE (Negative)
[2023-09-07 14:11] LABS: TSH reflex Free T4 18.83 uIU/mL (0.32-4.0)
[2023-09-07 15:56] LABS: Free T4 (Free Thyroxine) 0.52 ng/dL (0.71-1.85)
[2023-09-07 16:37] VITALS: BP 175/72; PULSE 58; RESP 20; TEMP 36.4; O2SAT 98
== END 2023-09-07 16:39 | disposition home or self-care (01) ==
PROVIDERS: Physician Assistant Medical; Emergency Provider Emergency Medicine
DX: Z76.0 Encounter for issue of repeat prescription (principal); E03.9 Hypothyroidism, unspecified; R05.9 Cough, unspecified; Z03.818 Encounter for observation for suspected exposure to other biological agents ruled out; Z88.0 Allergy status to penicillin
CPT/HCPCS: 0241U; 36415; 71046; 80048; 80076; 84439; 84443; 85025; 99282; 99283

== ENCOUNTER 2023-09-14 09:23 | Outpatient (REF) | payer OTHER, SELFPAY ==
--- NOTE | ~2023-09-14 | CT_ITS ---
EXAMINATION: CT CHEST WITHOUT CONTRAST CLINICAL INFORMATION: Interstitial lung disease, cough, hypoxemia COMPARISON: CT scan of chest on 03/11/2017 TECHNIQUE: Multidetector volumetric CT imaging of the chest was done. Axial MIP volume rendering provided. Sagittal and coronal reformatted images were obtained. This CT examination was performed using dose optimization techniques as appropriate, variously including the following: *Automated exposure control *Adjustment of mA and/or kV according to patient size (this includes techniques or standardized protocols for targeted exams where dose is matched to indication/reason for exam; i.e. extremities or head) *Use of iterative reconstruction technique DLP: 115.59 mGy-cm FINDINGS: LUNGS: The visualized lung parenchyma is clear. -Nodule #1 (Series 10, image 26): 2.1 mm solid nodule, lateral pleural border of left upper lobe apicoposterior segment, previously 2 mm. -Nodule #2 (Series 10, image 51): 2.3 mm solid nodule, posterior border of right upper lobe posterior segment, previously 2 mm. -Nodule #3 (Series 10, image 55): 2.0 mm solid nodule, anterior border of left lower lobe superior segment, previously 2 mm. There is interval resolution of subpleural hazy groundglass opacity at lateral pleural border of right upper lobe apical segment. Unchanged tiny micronodule associated with curvilinear atelectasis or fibrosis is seen at posterior lateral corner of right middle lobe lateral segment, series 10 image #75, 76. There is interval decrease in size of the tiny focal atelectasis at anterior lateral corner of left lingular lobe inferior segment, series 10 image #99. PLEURA: No pleural effusion or pneumothorax is seen. PERICARDIUM: No pericardial effusion is seen. MEDIASTINUM AND CHITO: Inadequate evaluation of the mediastinal and hilar lymph nodes due to absence of IV contrast filling the surrounding blood vessels. TRACHEOBRONCHIAL TREE: Trachea and bilateral mainstem bronchi are patent. THORACIC AORTA: The thoracic aorta is normal in size and smooth in outline. CORONARY ARTERY CALCIFICATIONS: None PULMONARY ARTERIES: The main pulmonary arteries appear to be normal in size. CHEST WALL AND LOWER NECK: The subcutaneous and muscular chest wall are intact with no focal lesion. No abnormal mass lesion could be seen in the visualized lower neck. BONES: No fracture or dislocation. No focal bone lesion diagnostic of metastatic disease could be seen in the thorax. VISUALIZED UPPER ABDOMEN: Bilateral adrenal glands are not enlarged. 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/CT chest wo IV con IMPRESSION: 1. Interval resolution of subpleural hazy groundglass opacity at lateral pleural border of right upper lobe apical segment. 2. Interval decrease in size of tiny focal atelectasis at anterior lateral corner of left lingular lobe inferior segment. 3. No interval change in size of few micronodules in bilateral upper lobes and left lower lobe. 4. Unchanged tiny micronodule associated with curvilinear atelectasis or fibrosis at posterior lateral corner of right middle lobe lateral segment. 5. 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 According to the UPDATED 2017 Fleischner Society recommendations, the advised follow-up imaging for nodules <6mm in the upper lobes is not necessarily required in low-risk patients. In high-risk patients with a nodule in the upper lobe and/or demonstrating suspicious morphology, an optional CT follow-up at 12 months may be obtained. If stable at 12 months, no further follow-up is recommended. The micronodules have been stable for more than 6 years. Fleischner guidelines were followed.
== END 2023-09-14 09:24 | disposition home or self-care (01) ==
LOC: HO.CT 09:23
PROVIDERS: PCP Nurse Practitioner Family; Visit Provider Internal Medicine
DX: J98.4 Other disorders of lung (principal); J84.9 Interstitial pulmonary disease, unspecified; R09.02 Hypoxemia; I27.20 Pulmonary hypertension, unspecified
CPT/HCPCS: 71250

== ENCOUNTER 2023-09-23 14:03 | Outpatient (REF) | payer OTHER, SELFPAY ==
[2023-09-23 09:32] VITALS: PULSE 76; RESP 16; O2SAT 100
--- NOTE | 2023-09-23 15:04 | PFT_ITS ---
Flows: FEV1: 70 % of predicted at 1.39 L FVC: 60 % of predicted at 1.53 L FEV1/FVC: 90 % Bronchodilator response: Absent Volumes: Total lung capacity: 48 % of predicted at 2.04 L Residual volume: 36 % of predicted at 0.55 L Slow vital capacity: 55 % of predicted at 1.49 L Expiratory reserve volume: 40 % of predicted at 0.25 L Diffusion capacity: Severely decreased, adjusts to being moderately decreased after correction for alveolar ventilation. Impression: Moderate restrictive ventilatory defect with no bronchodilator response. Decreased expiratory reserve volume suggests extrathoracic restriction likely secondary to abdominal obesity. Combination of restrictive ventilatory defect with decreased diffusion capacity suggests underlying pulmonary parenchymal disease. Clinical correlation is advised. MTDD
== END 2023-09-23 14:04 | disposition home or self-care (01) ==
LOC: HO.RESP 14:03
PROVIDERS: PCP Internal Medicine; Visit Provider Internal Medicine
DX: J84.9 Interstitial pulmonary disease, unspecified (principal); R06.02 Shortness of breath; I27.20 Pulmonary hypertension, unspecified
CPT/HCPCS: 94010; 94640; 94727; 94729

== ENCOUNTER → 2023-09-23 15:04 | Outpatient (BNV) | payer OTHER, SELFPAY | PROVIDERS: PCP Internal Medicine; Visit Provider Internal Medicine Pulmonary Disease | DX: J44.9 Chronic obstructive pulmonary disease, unspecified (principal) | CPT/HCPCS: 94060; 94727; 94729 ==

== ENCOUNTER 2023-09-27 10:57 | Outpatient (AMB) | payer OTHER, SELFPAY ==
[2023-09-27 11:04] VITALS: BP 120/90; PULSE 67; O2SAT 98; BMI 32.9
--- NOTE | 2023-09-27 11:04 | A.OFFVIS_ITS ---
Vital Signs 09/27/23 11:04 Height 4 ft 11 in Weight 163 lb BMI 32.9 BP 120/90 H Blood Pressure Location Lt brachial Position Sitting Pulse 67 Pulse Source Pulse Oximeter Pulse Oximetry (%) 98 Oxygen Delivery Method Nasal Cannula Oxygen Flow Rate 2 Intake Visit Reasons: COPD Intake Note: pt is here for follow up and states she has a cough at night and feels like something is in her throat (like choking feeling) going on for months. [employer] Required: No Allergies amoxicillin [Amoxicillin] Allergy (Unknown, Verified 09/27/23 11:33) UNKNOWN clavulanic acid [Augmentin] Allergy (Unknown, Verified 09/27/23 11:33) Unknown penicillin G [PENICILLIN G] Allergy (Unknown, Verified 09/27/23 11:33) UNKNOWN Medication List - Last Reconciled 09/27/23 by Heladio Gallego MD albuterol sulfate 2.5 mg (3 mL) inhalation Q4-6H PRN albuterol sulfate 90 mcg/actuation 2 puffs inhalation Q4H PRN Breo Ellipta 200-25 mcg/dose (fluticasone furoate-vilanterol) 1 ea PO DAILY NS cetirizine 10 mg PO DAILY PRN levothyroxine 50 mcg PO DAILY 30 days levothyroxine 50 mcg PO DAILY ph-zz-vowpw-lutein-herbal 293 80 mcg-166.7 mcg-66.7 mg (Alive Premium Women's 50 Plus) tabs PO nystatin 5 mL PO DAILY PRN Do you need a note to return to daycare/school/sports/work: No HPI HPI COPD: Details: 63 years old female is here for her routine follow-up or pulmonary issues. She is moderately obese, has chronic restrictive pulmonary disorder, along with reactive airways. She has chronic allergy of the upper airways, which varies along with the change s in the weather. Always has some nasal congestion with postnasal discharge and cough. She requires O2 24 hours a day 2 L/minute. She gets short of breath on walking around. Luckily has had no acute respiratory infection lately Her thyroid function has been off and with elevated TSH and now she is being treated with thyroid replacement. Has had CT scan of the chest as well as pulmonary function test which will be described below. [facility] Medical History ILD (interstitial lung disease) Fatigue Cough Hypoxemia Sore throat and laryngitis Obstructive airway disease Restrictive airway disease Surgical History History of tubal ligation Family History Father No problems noted. Mother Atrial fibrillation Brother Heart valve replaced Social History Patient Tobacco Use Status: Never used Tobacco Review of Systems Const All systems reviewed & are unremarkable except as noted in HPI and below Eyes Reports no additional complaints ENT Reports nasal congestion (MILD INTERMITTENT) and Reports sore throat (QUITE FREQUENT, OFF AND ON AND MAINLY DUE TO THRUSH.) Card Denies chest pain, Denies leg edema and Reports dyspnea on exertion Resp Reports as per HPI and Reports dyspnea on exertion GI Reports no additional complaints Reports no additional complaints Musc Reports no additional complaints Skin/Breast Reports system reviewed and no additional complaints, except as documented Neuro Reports no additional complaints Psych Reports no additional complaints Physical Exam Vital Signs: Last Vital Signs Pulse 67 09/27/23 11:04 BP 120/90 H 09/27/23 11:04 Pulse Ox 98 09/27/23 11:04 Oxygen Delivery Method Nasal Cannula 09/27/23 11:04 Oxygen Flow Rate 2 09/27/23 11:04 BMI result Body Mass Index 32.9 Const General: comfortable, no acute distress, alert and awake Orientation/consciousness: patient oriented x3 HEENT Head: Yes normal to inspection General nose exam: No nasal polyps present and No nasal discharge present Face and sinus: Yes sinuses nontender Mouth: oropharynx normal (There is no redness or swelling.) Teeth and gingiva: edentulous (S/P MULTIPLE EXTRACTIONS.) Throat: Yes posterior oropharynx normal and Yes other (No evidence of any thrush at this time) Eyes General: appearance normal, both eyes and all related structures Neck Neck: Yes normal visual inspection, Yes no lymphadenopathy, Yes trachea midline and Yes no JVD Thyroid: Thyroid normal Chest Chest palpation & inspection: normal inspection of the chest, normal palpation of entire chest wall and no tenderness Resp Other: PERCUSSION NOTE RESONANT, BREATH SOUNDS ARE SLIGHTLY DISTANT WITH PROLONGED EXPIRATORY PHASE. BOTH LUNGS ARE CLEAR TODAY WITHOUT ANY WHEEZES OR RHONCHI.A FEW FINE CREPS, OVER THE RT BASE . SHE DOES GET COUGH WHEN SHE TAKES A DEEP BREATH. Cardio Palpation: normal PMI Rate: regular rate Rhythm: regular rhythm Heart sounds: no gallops and no murmurs GI Palpation (GI): Soft to palpation, nontender, No hepatosplenomegaly present and no masses Auscultation: normal bowel sounds Back/Spine/Pelvis Thoracic/Lumbar Spine: thoracic and lumbar spine normal to inspection Skin General skin exam: no rashes or lesions noted Neuro General: patient oriented x3 and no focal motor deficits Cranial nerves: Yes CN's II-XII intact bilaterally Extrem General: Yes normal to inspection, Yes no clubbing, cyanosis or edema and Yes no calf tenderness Psych Appearance: grossly normal and well kempt Speech and movement: Normal speech and movement present Results Reviewed Results Reviewed: CT scan of the chest shows interval resolution of sub pleural hazy ground-glass opacity in right upper lobe. Interval decrease in size of tiny focal atelectasis at the lingular low Multiple micronodule but no recent change. Pulmonary function test consistent with moderately severe restrictive pulmonary disorder with TLC 48% RV 36%. DLCO 34% dL/VA 59% ( she does have significant VQ abnormality, explaining for her ongoing hypoxemia) Assessment & Plan Assessment & Plan (1) ILD (interstitial lung disease): Comment: CHEST X-RAYS HAVE SHOWN INCREASED BRONCHOVASCULAR MARKINGS ESPECIALLY IN THE LOWER LOBES, SHE HAS PREVIOUS HISTORY OF ALVEOLITIS . CURRENT CT SCAN DOES SHOW, SOME IMPROVEMENT FROM BEFORE, BUT SHE STILL HAS SMALL LUNG VOLUME Code(s): J84.9 - Interstitial pulmonary disease, unspecified Category: Medical Plan: CONTINUE TO DO DEEP BREATHING EXERCISES 2 OR 3 TIMES A DAY (2) Restrictive airway disease: Comment: Post pneumonitis in 2016 . She has had restrictive lung disease., moderately severe. It is remaining relatively stable. Code(s): J98.4 - Other disorders of lung Category: Medical Plan: AGAIN EXPLAINED ABOUT HER DISEASE AND ADVISE THAT SHE SHOULD DO DEEP BREATHING EXERCISES WITH THE INCENTIVE SPIROMETER 3 TIMES A DAY (3) Obstructive airway disease: Comment: Mild, but she has frequent cough, representing reactive airways Code(s): J44.9 - Chronic obstructive pulmonary disease, unspecified Category: Medical Plan: CONTINUE BREO 200-251 INHALATION DAILY ALBUTEROL HFA 2 PUFFS Q 4-6 HOURS P.R.N. (4) Cough: Comment: CHRONIC COUGH DUE TO COMBINATION OF ALLERGIC RHINITIS, COPD, MILD ,RESTRICTIVE PULMONARY DISORDER AND REACTIVE AIRWAYS . Code(s): R05 - Cough Category: Medical Plan: MAY USE OTC COUGH MEDICINE P.R.N.. MAY USE ZYRTEC 10 MG ONCE A DAY P.R.N. FOR NASAL CONGESTION. (5) Hypoxemia: Comment: PATIENT HAS CHRONIC HYPOXEMIA SINCE 2015 WHEN SHE HAD ACUTE INTERSTITIAL LUNG DISEASE. AFTER THE COVID INFECTION IN NOVEMBER 2021 , HER O2 REQUIREMENT HAS INCREASED AND SHE USES 3 L/MINUTE. Code(s): R09.02 - Hypoxemia Category: Medical Plan: CONTINUE TO USE OXYGEN 2-3 L/MINUTE TO KEEP O2 SAT ABOVE 90% Coding Level of Care Code Est Pt Level 4 (59270) Diagnoses ILD (interstitial lung disease) J84.9 Restrictive airway disease J98.4 Obstructive airway disease J44.9 Cough R05 Hypoxemia R09.02
== END 2023-09-27 11:29 | disposition home or self-care (01) ==
PROVIDERS: PCP Nurse Practitioner Family; Visit Provider Internal Medicine
DX: J84.9 Interstitial pulmonary disease, unspecified (principal); J98.4 Other disorders of lung; J44.9 Chronic obstructive pulmonary disease, unspecified; R05.9 Cough, unspecified; R09.02 Hypoxemia
CPT/HCPCS: 99214

== ENCOUNTER → 2023-09-27 10:57 | Outpatient (BNVA) | payer OTHER, SELFPAY | PROVIDERS: PCP Nurse Practitioner Family; Visit Provider Internal Medicine | DX: J84.9 Interstitial pulmonary disease, unspecified (principal); J98.4 Other disorders of lung; J44.9 Chronic obstructive pulmonary disease, unspecified; R05.9 Cough, unspecified; R09.02 Hypoxemia | CPT/HCPCS: 99212 ==

== ENCOUNTER 2023-09-28 09:03 | Outpatient (AMB) | payer OTHER, SELFPAY ==
--- NOTE | 2023-09-28 09:09 | MHC.PC.OV ---
Vital Signs 09/28/23 09:11 Height 4 ft 11 in Weight 169 lb BMI 34.1 BP 128/84 Blood Pressure Location Rt brachial Position Sitting Respiration 16 Pulse 62 Pulse Source Pulse Oximeter Pulse Oximetry (%) 98 Oxygen Delivery Method Nasal Cannula Oxygen Flow Rate 2 Intake Visit Reasons: est care/ mary ellen from [facility] Allergies amoxicillin [Amoxicillin] Allergy (Unknown, Verified 09/28/23 09:11) UNKNOWN clavulanic acid [Augmentin] Allergy (Unknown, Verified 09/27/23 11:33) Unknown penicillin G [PENICILLIN G] Allergy (Unknown, Verified 09/27/23 11:33) UNKNOWN Medication List - Last Reconciled 09/28/23 by Pallavi Soni PA-C albuterol sulfate 2.5 mg (3 mL) inhalation Q4-6H PRN albuterol sulfate 90 mcg/actuation 2 puffs inhalation Q4H PRN Breo Ellipta 200-25 mcg/dose (fluticasone furoate-vilanterol) 1 ea PO DAILY NS cetirizine 10 mg PO DAILY PRN levothyroxine 50 mcg PO DAILY 30 days xb-rq-dasse-lutein-herbal 293 80 mcg-166.7 mcg-66.7 mg (Alive Premium Women's 50 Plus) tabs PO nystatin 5 mL PO DAILY PRN Tobacco use date assessed: 09/28/23 Dental Screening Dental Screen Date: 09/28/23 Did you have a dental visit in the last 12 months?: No Did you have a dental problem in the last 6 months where you did not have access to dental care?: No Was dental information given to patient?: Patient declined (Doesn't have teeth) HPI est care/ mary ellen from [facility] HPI Details Patient is a 63-year-old female who presents today to [facility]. She is transferring from [facility]. She is accompanied today by her daughter Lizzy. She has a significant past medical history of hypothyroidism, interstitial lung disease, COPD, reactive airway disease, O2 dependence, pulmonary hypertension, chronic sinusitis, leukocytosis, depression, generalized anxiety and chronic fatigue. PULM: Follows with Dr. Gallego and was recently seen on 09/27/2023. States that her RAD, COPD and interstitial lung disease is overall stable. She was diagnosed with interstitial lung disease in 2008 and states became O2 dependent in 2016. The dependence got worse after a COVID infection a couple years ago. She does remain dependent on 2 L of oxygen throughout the day. No recent exacerbations but she does have a chronic cough and dyspnea with exertion. She is on breo and albuterol. states rarely uses albuterol. She denies ever smoking cigarettes. Her mother had interstitial lung disease and from complications related to this at the age of 74. -Want to see allergy and immunology for testing due to chronic sinusitis. CV: Blood pressure today in the office is 128/84. She did follow with cardiology for a workup of the SUN and had an overall reassuring echo with an EF of 60-65%, negative cardiac catheterization in 2021 following a false-positive stress test. Endo: Last TSH was 18. She was started on levothyroxine 50 mcg from the ED earlier this month. Reports compliance. She does have issues with losing weight. She states that she also feels tired all the time and this has been going on for the last few years. -we did discuss the chronic fatigue today and she does have symptoms consistent with depression and anxiety as well. She states that she is just worried that this could be a sign of cancer. She states that for the last couple of months she has had somewhat persistent cervical lymphadenopathy. It waxes and wanes in intensity but she states it almost always feels like she can feel the lymph nodes bulging in her neck. She does have a persistent laryngitis which she attributes to thrush. She uses nystatin with good relief of symptoms. She has not needed to use this in the last few weeks despite the lymphadenopathy being present. Denies any difficulty swallowing or pain with swallowing. States at times lymph nodes are painful. No difficulty moving her neck. No fever, chills, night sweats or weight loss. Does not drink alcohol. Heme: Has a hx of hx of leukocytosis it has followed with Heme-Onc and states was told that this was normal. Psych: She is tearful today and does have a lot of stress regarding her medical diagnoses and states that she is constantly worried that she is going to pass away similar as her mother . She last saw a therapist over 10 years ago and states that it was through [facility] and she did not like this experience. She felt as if it was putting her against her daughter and causing the system to kidnap her grandchildren. She did not feel that she had a safe place to talk with someone. She has not sure that she would talk to a therapist. She states that she is somewhat against starting medication for this. She denies any SI/HI. She states that she is able to calm herself down if she feels like she is about to have a panic attack. She has coping mechanisms such as deep breathing. Reports a good support system with her other daughter Ariadna. Mammogram: due Pap: overdue Colonoscopy: 2019-hemorrhoids, due in 2028 Bone density: overdue Immunizations: states [facility] Medical History ILD (interstitial lung disease) Fatigue Cough Hypoxemia Sore throat and laryngitis Obstructive airway disease Restrictive airway disease Surgical History History of tubal ligation Family History (Updated 09/28/23 @ 10:24 by Pallavi Soni PA-C) Father No problems noted. Mother Atrial fibrillation Interstitial lung disease Brother Heart valve replaced Social History Housing: House Patient Tobacco Use Status: Never used Tobacco e-Cigarette/Vaping Use: Never Used service: No Current occupational status: disabled Cognitive needs: No Hearing needs: No Vision needs: Yes (cataracts) Questionnaire PHQ-9 Over the last 2 weeks, how often have you been bothered by any of the following problems? 1. Little interest or pleasure in doing things: nearly every day 2. Feeling down, depressed, or hopeless: more than half the days 3. Trouble falling or staying asleep, or sleeping too much: not at all 4. Feeling tired or having little energy: nearly every day 5. Poor appetite or overeating: not at all 6. Feeling bad about yourself - or that you are a failure or have let yourself or your family down: several days 7. Trouble concentrating on things, such as reading the newspaper or watching television: more than half the days 8. Moving or speaking so slowly that other people could have noticed. Or the opposite - being so fidgety or restless that you have been moving around a lot more than usual: several days 9. Thoughts that you would be better off or of hurting yourself in some way: not at all Total score: 12 Depression Screening Interpretation: Positive Depression Screening Follow-up: Existing condition, Follow-up Visit Requested and Declines treatment Depression Screening Done: Yes [id number] - PHQ-9 Billing: Yes Source: Developed by Drs. Shane Guajardo, Estrella Broderick, Christopher Burden and colleagues, with an educational cleo from [employer]. Thrive Questionnaire I am a: Patient What is your living situation today?: I have a steady place to live Within the past 12 months, did the food you bought not last and you didn't have the money to get more?: Sometimes True Within the past 12 months, did you worry whether your food would run out before you got money to buy more?: Sometimes True Do you have trouble paying for medicines?: No Do you have trouble getting transportation to medical appointments?: No Do you have trouble paying your heating and electricity bill?: Yes Do you have trouble taking care of your child, family member or friend?: No Do you have trouble with day-to-day activities such as bathing, preparing meals, shopping, managing finances, etc.?: Yes Are you currently unemployed and looking for a job?: No Are you interested in more education?: No Please select the resources that you would like help with: Food Currently or been in a relationship where the following occur: no concerns reported THRIVE Score: 3 AUDIT C Alcohol Use Questionnaire (AUDIT-C) 1. How often do you have a drink containing alcohol?: Never 3. How often do you have six or more drinks on one occasion?: Never Total Score: 0 Score Reviewed/Action Taken: Yes ARABELLA-7 AMB Questionnaire ARABELLA-7 Feeling nervous, anxious, or on edge: 1 = Several days Not being able to stop or control worryin = Nearly every day Worrying too much about different things: 3 = Nearly every day Trouble relaxin = Several days Being so restless that it is hard to sit still: 0 = Not at all Becoming easily annoyed or irritable: 3 = Nearly every day Feeling afraid as if something awful might happen: 3 = Nearly every day Total ARABELLA-7 score (0-4 normal; 5-9 mild; 10-14 moderate; 15-21 severe): 14 Source: Developed by Drs. Shane Guajardo, Estrella Broderick, Christopher Burden and colleagues, with an educational cleo from [employer]. ARABELLA-7 Assessment Billing ARABELLA-7 Assessment Tool: ARABELLA-7 Assessment 79827 ACT Questionnaire In the past 4 weeks, how much of the time did your asthma keep you from getting as much done at work, school or at home?: None of the time During the past 4 weeks, how often have you had shortness of breath?: Once a day During the past 4 weeks, how often did your asthma symptoms wake you up at night or earlier than usual in the morning?: Not at all During the past 4 weeks, how often have you had to use your rescue inhaler or nebulizer medication?: More than 3 times per day (Breo every night) How would you rate your asthma control during the past 4 weeks?: Well controlled ACT Interpretation: Positive Score: 17 Review of Systems Const Reports as per HPI, Denies excessive sweating, Denies headache(s) and Reports lethargy Eyes Denies blind spots, Denies blurry vision, Denies exophthalmos and Denies change in vision ENT Denies dizziness and Denies headache(s) Card Denies chest pain, Denies syncope, Denies leg edema and Reports dyspnea Resp Reports dyspnea GI Denies abdominal pain Denies abnormal vaginal bleeding and Denies hematuria Musc Denies back pain Skin/Breast Denies lesions Neuro Denies dizziness, Denies syncope and Denies headache(s) Psych Reports as per HPI Endo Denies excessive sweating, Denies polyphagia, Denies polydipsia and Denies polyuria Jos/Lymph Reports as per HPI Aller/Immun Reports as per HPI Physical exam (Primary Care) Vital Signs: Last Vital Signs Pulse 62 09/28/23 09:11 Resp 16 09/28/23 09:11 BP 128/84 09/28/23 09:11 Pulse Ox 98 09/28/23 09:11 Oxygen Delivery Method Nasal Cannula 09/28/23 09:11 Oxygen Flow Rate 2 09/28/23 09:11 BMI result Body Mass Index 34.1 BMI Assessment/Plan discussion: High BMI High, discussed plan: dietary Tobacco/Smoking Status: Tobacco use Status Patient Tobacco Use Status Never used Tobacco 09/28/23 09:12 Depression Screening Interpretation: Positive Depression Screening Follow-up: Existing condition, Follow-up Visit Requested and Declines treatment Currently or been in a relationship where the following occur: no concerns reported Const Orientation/consciousness: patient oriented x3 HENMT Ears: hearing grossly normal bilaterally and TM's normal bilaterally Face and sinus: Yes sinuses nontender Mouth: Normal oral and palatal mucosa present Eyes Pupils: Equal, round and reactive pupils present EOM: EOMs intact bilaterally Neck Thyroid: Thyroid normal Lymphatic: lymphadenopathy (anterior cervical lymphadenopathy noted) Resp Other: diminished breath sounds Cardio Rate: regular rate Rhythm: regular rhythm GI Inspection: Yes normal to inspection Palpation (GI): Soft to palpation and Other GI palpation findings present (nontender, no cva tenderness) Auscultation: normoactive bowel sounds Skin General skin exam: no rashes or lesions noted Neuro General: patient oriented x3, gait normal and no focal motor deficits Cranial nerves: Yes Equal, round and reactive pupils present Extrem General: Yes normal to inspection and Yes full ROM Psych Appearance: well kempt Speech and movement: Normal speech and movement present Affect: normal affect Attitude: cooperative Thought process: Normal thought process present Thought content: Normal thought content present Insight: Good insight present (Psych) Judgement: Good judgement present (Psych) Results Reviewed Results Reviewed: Laboratory Tests 09/07/23 13:16 WBC 14.7 H RBC 5.39 Hgb 14.4 Hct 44.5 Plt Count 320 D Sodium 142 Potassium 4.5 Chloride 104 Carbon Dioxide 29 Anion Gap 14 BUN 8 L Creatinine 0.76 Estim Creat Clear Calc 65.3 Estimated GFR > 60 Random Glucose 89 Calcium 9.8 D Total Bilirubin 0.3 Direct Bilirubin 0.1 AST 24 ALT 17 Alkaline Phosphatase 131 H Total Protein 7.4 Albumin 4.3 TSH 18.83 H Free T4 0.[address]/CT chest wo IV con IMPRESSION: 1. Interval resolution of subpleural hazy groundglass opacity at lateral pleural border of right upper lobe apical segment. 2. Interval decrease in size of tiny focal atelectasis at anterior lateral corner of left lingular lobe inferior segment. 3. No interval change in size of few micronodules in bilateral upper lobes and left lower lobe. 4. Unchanged tiny micronodule associated with curvilinear atelectasis or fibrosis at posterior lateral corner of right middle lobe lateral segment. 5. 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 According to the UPDATED 2017 Fleischner Society recommendations, the advised follow-up imaging for nodules <6mm in the upper lobes is not necessarily required in low-risk patients. In high-risk patients with a nodule in the upper lobe and/or demonstrating suspicious morphology, an optional CT follow-up at 12 months may be obtained. If stable at 12 months, no further follow-up is recommended. The micronodules have been stable for more than 6 years. Assessment and Plan Assessment & Plan (1) Encounter to establish care: Code(s): Z76.89 - Persons encountering health services in other specified circumstances Plan: Reviewed recent ER encounter, labs, diagnostics, cardiology and pulmonology notes. Records have been requested. Chart reviewed and edited. Labs ordered today including CBC, CMP, lipids, TSH, B12, iron, ferritin. Bone density, mammogram and referral to correspondence school teacher ordered. Additional workup as below. We also discussed advanced care planning. (2) Cough: Comment: CHRONIC COUGH DUE TO COMBINATION OF ALLERGIC RHINITIS, COPD, MILD ,RESTRICTIVE PULMONARY DISORDER AND REACTIVE AIRWAYS . Code(s): R05 - Cough Qualifiers: Cough type: chronic Qualified Code(s): R05.3 - Chronic cough Plan: She has been referred to Allergy and immunology. Phone number provided to [place]. Reviewed chest x-ray and chest CT with patient and daughter. Patient wanted pictures of her CT and the report. (3) Chronic sinusitis: Code(s): J32.9 - Chronic sinusitis, unspecified Qualifiers: Sinusitis location: maxillary Qualified Code(s): J32.0 - Chronic maxillary sinusitis Plan: Continue on Zyrtec. Declines any nasal sprays. We did discuss possibly switching to Xyzal. She wants to hold off on this. See above. (4) ILD (interstitial lung disease): Comment: CHEST X-RAYS HAVE SHOWN INCREASED BRONCHOVASCULAR MARKINGS ESPECIALLY IN THE LOWER LOBES, SHE HAS PREVIOUS HISTORY OF ALVEOLITIS . CURRENT CT SCAN DOES SHOW, SOME IMPROVEMENT FROM BEFORE, BUT SHE STILL HAS SMALL LUNG VOLUME Code(s): J84.9 - Interstitial pulmonary disease, unspecified Plan: Reviewed imaging and pulmonology notes. Continue routine follow-up. (5) O2 dependent: Code(s): Z99.81 - Dependence on supplemental oxygen Plan: Continue follow up with pulmonology. (6) Fatigue: Code(s): R53.83 - Other fatigue Qualifiers: Fatigue type: chronic, unspecified Qualified Code(s): R53.82 - Chronic fatigue, unspecified Plan: We did discuss that this is possibly multifactorial from being O2 dependent, deconditioned, depression and her poorly controlled hypothyroidism. Labs ordered today. UA and culture ordered. We will follow up pending test results. Discussed that we may need to adjust her levothyroxine dosage. (7) Generalized anxiety disorder: Code(s): F41.1 - Generalized anxiety disorder Plan: Offered behavioral health referral but declines. We did discuss medication today specifically Lexapro. We discussed pros and cons to starting an SSRI. She is going to think about it and look into some of this. (8) Major depressive disorder, recurrent, mild: Code(s): F33.0 - Major depressive disorder, recurrent, mild Plan: See above. (9) Hypothyroidism: Code(s): E03.9 - Hypothyroidism, unspecified Qualifiers: Hypothyroidism type: acquired Qualified Code(s): E03.9 - Hypothyroidism, unspecified Plan: Neck ultrasound ordered. TSH ordered. We will adjust levothyroxine pending labs. (10) Cervical lymphadenopathy: Code(s): R59.0 - Localized enlarged lymph nodes Plan: Labs ordered. Ultrasound ordered. We will follow up pending test results. (11) Pulmonary hypertension: Code(s): I27.20 - Pulmonary hypertension, unspecified Plan: She Is compliant with her pulmonology management and follow-up. Orders: Orders Complete Blood Count Auto Diff Today F33.0 - Major depressive disorder, recurrent, mild, F41.1 - Generalized anxiety disorder, J32.9 - Chronic sinusitis, unspecified, J84.9 - Interstitial pulmonary disease, unspecified, R53.83 - Other fatigue, Z99.81 - Dependence on supplemental oxygen Comprehensive [place]. Panel Fast Today F33.0 - Major depressive disorder, recurrent, mild, F41.1 - Generalized anxiety disorder, J32.9 - Chronic sinusitis, unspecified, J84.9 - Interstitial pulmonary disease, unspecified, R53.83 - Other fatigue, Z99.81 - Dependence on supplemental oxygen TSH reflex Free T4 Today F33.0 - Major depressive disorder, recurrent, mild, F41.1 - Generalized anxiety disorder, J32.9 - Chronic sinusitis, unspecified, J84.9 - Interstitial pulmonary disease, unspecified, R53.83 - Other fatigue, Z99.81 - Dependence on supplemental oxygen XR DEXA axial skeleton Today N95.1 - Menopausal and female climacteric states US soft tiss head and/or neck Today R59.0 - Localized enlarged lymph nodes Vitamin B12 and Folate Today F33.0 - Major depressive disorder, recurrent, mild, F41.1 - Generalized anxiety disorder, J32.9 - Chronic sinusitis, unspecified, J84.9 - Interstitial pulmonary disease, unspecified, R53.83 - Other fatigue, Z99.81 - Dependence on supplemental oxygen Lipid Panel Today F33.0 - Major depressive disorder, recurrent, mild, F41.1 - Generalized anxiety disorder, J32.9 - Chronic sinusitis, unspecified, J84.9 - Interstitial pulmonary disease, unspecified, R53.83 - Other fatigue, Z99.81 - Dependence on supplemental oxygen Ferritin Today F33.0 - Major depressive disorder, recurrent, mild, F41.1 - Generalized anxiety disorder, J32.9 - Chronic sinusitis, unspecified, J84.9 - Interstitial pulmonary disease, unspecified, R53.83 - Other fatigue, Z99.81 - Dependence on supplemental oxygen IRON PROFILE Today F33.0 - Major depressive disorder, recurrent, mild, F41.1 - Generalized anxiety disorder, J32.9 - Chronic sinusitis, unspecified, J84.9 - Interstitial pulmonary disease, unspecified, R53.83 - Other fatigue, Z99.81 - Dependence on supplemental oxygen UA CC w/rflx Micro + Cult Today F33.0 - Major depressive disorder, recurrent, mild, F41.1 - Generalized anxiety disorder, J32.9 - Chronic sinusitis, unspecified, J84.9 - Interstitial pulmonary disease, unspecified, R53.83 - Other fatigue, Z99.81 - Dependence on supplemental oxygen MM screening mammo BI Today Z12.31 - Encounter for screening mammogram for malignant neoplasm of breast Referrals Allergy & Immunology Referral F33.0 - Major depressive disorder, recurrent, mild, F41.1 - Generalized anxiety disorder, J32.9 - Chronic sinusitis, unspecified, J84.9 - Interstitial pulmonary disease, unspecified, R05 - Cough, R53.83 - Other fatigue, Z99.81 - Dependence on supplemental oxygen [employer] Referral Z01.419 - Encounter for gynecological examination (general) (routine) without abnormal findings Review Patient declined Colonoscopy: 07/13/18 Coding Level of Care Code New Pt Level 5 (83686) Diagnoses Encounter to establish care Z76.89 Chronic cough R05.3 Cough type: chronic Chronic maxillary sinusitis J32.0 Sinusitis location: maxillary ILD (interstitial lung disease) J84.9 O2 dependent Z99.81 Chronic fatigue R53.82 Fatigue type: chronic, unspecified Generalized anxiety disorder F41.1 Major depressive disorder, recurrent, mild F33.0 Acquired hypothyroidism E03.9 Hypothyroidism type: acquired Cervical lymphadenopathy R59.0 Pulmonary hypertension I27.20 Additional Codes ARABELLA-7 Assessment Billing - ARABELLA-7 Assessment Tool: ARABELLA-7 Assessment [id number] ([id number]) Time Spent (min) 85
[2023-09-28 09:11] VITALS: BP 128/84; PULSE 62; RESP 16; O2SAT 98; BMI 34.1
== END 2023-09-28 10:21 | disposition home or self-care (01) ==
PROVIDERS: PCP Physician Assistant; Visit Provider Physician Assistant
DX: R05.3 Chronic cough (principal); F33.0 Major depressive disorder, recurrent, mild; J84.9 Interstitial pulmonary disease, unspecified; I27.20 Pulmonary hypertension, unspecified; J32.0 Chronic maxillary sinusitis; Z99.81 Dependence on supplemental oxygen; R53.82 Chronic fatigue, unspecified; F41.1 Generalized anxiety disorder; E03.9 Hypothyroidism, unspecified; R59.0 Localized enlarged lymph nodes
CPT/HCPCS: 96127; 99205; G2212

== ENCOUNTER 2023-10-05 09:23 | Outpatient (REF) | payer OTHER, SELFPAY ==
[2023-10-05 09:50] LABS: MANUAL DIFF FLAG NO
[2023-10-05 10:53] LABS: Hematocrit 43.1 % (37.0-47.0); Imm Gran Abs Auto 0.06 X10*3/uL (0.00-0.03); Imm Gran Pct Auto 0.5 % (0.0-0.4); Lymphocytes Absolute Auto 3.4 X10*3/uL (1.2-4.9); Lymphocytes Percent Auto 26.7 % (20-40); Mean Corpuscular Volume 83.9 fL (80.0-98.0); Red Blood Count 5.14 X10*6/uL (4.20-5.50); White Blood Count 12.9 X10*3/uL (4.8-10.8)
[2023-10-05 11:51] LABS: Alkaline Phosphatase 119 U/L (39-117); Anion Gap 13 (12-20); Blood Urea Nitrogen 11 mg/dL (9-16); Carbon Dioxide 29 mmol/L (22-29); Chloride 104 mmol/L (96-108); Cholesterol 216 mg/dL (<200); Estimated Glomerular Filt Rate > 60; Glucose Fasting 89 mg/dL (60-99); HDL Cholesterol 42 mg/dL (>40); LDL Cholesterol Calculated 156 mg/dL (<100); Sodium 142 mmol/L (135-145); Triglycerides 91 mg/dL (<150); Unsaturated Iron Binding 244 ug/dL
[2023-10-05 12:39] LABS: Free T4 (Free Thyroxine) 0.77 ng/dL (0.71-1.85)
== END 2023-10-05 09:24 | disposition home or self-care (01) ==
LOC: HO.LAB 09:23
PROVIDERS: PCP Physician Assistant; Visit Provider Physician Assistant
DX: J32.9 Chronic sinusitis, unspecified (principal); J84.9 Interstitial pulmonary disease, unspecified; R53.83 Other fatigue; F41.1 Generalized anxiety disorder; F33.0 Major depressive disorder, recurrent, mild; Z99.81 Dependence on supplemental oxygen
CPT/HCPCS: 36415; 80053; 80061; 82607; 82728; 82746; 83540; 84439; 84443; 85025

== ENCOUNTER 2023-10-06 14:42 | Outpatient (REF) | payer OTHER, SELFPAY ==
--- NOTE | ~2023-10-06 | US_ITS ---
EXAMINATION: US SOFT TISSUE HEAD/NECK CLINICAL INFORMATION: Localized enlarged lymph nodes. COMPARISON: None available. TECHNIQUE: Linear transducer alfonso-scale and color Doppler examination of the right and left neck levels Ib-II, areas of concern. FINDINGS: The cutaneous, subcutaneous, muscular and fascial planes are unremarkable. At the left cervical levels 1B and 2, there are shotty, nonpathologically enlarged lymph nodes. One of the largest is at level 1B, measuring 1.0 x 0.5 x 0.6 cm, with normal architectural features. No lymphadenopathy is seen. No mass or fluid collection. No foreign body is seen. US/US soft tiss head and/or neck IMPRESSION: There are shotty, nonspecific, nonpathologic enlarged left cervical lymph nodes. No sizable lymphadenopathy is seen. There is no mass or fluid collection.
[2023-10-06 15:46] LABS: Appearance Urine Clear; Color Urine Yellow; Glucose Urine UA Negative (Negative); Leukocyte Esterase Urine Negative (Negative); Nitrite Urine Negative (Negative); Specific Gravity - Urine 1.015 (1.005-1.025); Urine Blood Negative (Negative); Urine Ketones Negative (Negative); Urine Protein Negative (Neg-Trace)
== END 2023-10-06 14:43 | disposition home or self-care (01) ==
LOC: HO.US 14:42
PROVIDERS: PCP Physician Assistant; Visit Provider Physician Assistant
DX: R59.0 Localized enlarged lymph nodes (principal); J32.9 Chronic sinusitis, unspecified; J84.9 Interstitial pulmonary disease, unspecified; F41.1 Generalized anxiety disorder; F33.0 Major depressive disorder, recurrent, mild; Z99.81 Dependence on supplemental oxygen
CPT/HCPCS: 76536; 81003

== ENCOUNTER 2023-10-21 13:07 | Outpatient (REF) | payer OTHER, SELFPAY ==
--- NOTE | ~2023-10-21 | MM_ITS ---
EXAMINATION: BONE DENSITOMETRY CLINICAL INDICATION: Menopausal and female climacteric states. COMPARISON: This is the patient's baseline examination. TECHNIQUE: Using a [employer] DXA System (software version: 13.1) manufactured by [employer], dual-energy x-ray absorptiometry was performed of the lumbar spine and left hip. The images are of good technical quality. Summary results are attached. FINDINGS: LEFT FEMUR, NECK: BMD 0.694 g/cm2, Z-score -1.2, T-score -2.5, osteoporosis. LEFT FEMUR, TOTAL: BMD 0.656 g/cm2, Z-score -1.8, T-score -2.8, osteoporosis. AP SPINE L1-L4: BMD 1.000 g/cm2, Z-score -0.3, T-score -1.5, osteopenia. IDENTIFIED RISK FACTORS: Early menopause, secondary osteoporosis, glucocorticoids (chronic), low calcium intake. HISTORY OF FRACTURE: None listed. MEDICATIONS: Multivitamin. MM/XR DEXA axial skeleton IMPRESSION: 1. DIAGNOSIS: Osteoporosis based on the lowest T-score value of -2.8 in the total femur applying World Health Organization criteria. 2. 10-YEAR FRACTURE RISK PREDICTION, FRAX: According to the guidelines, FRAX calculation should only be performed on patients in the osteopenia bone density category. Therefore, FRAX was not performed on this patient.? 3. Treatment Recommendations: NOF guidelines recommend consideration for treatment in postmenopausal women and men age 50 and older presenting with the following: -A hip or vertebral (clinical or morphometric) fracture. -T-score less than or equal to -2.5 at the femoral neck or spine after appropriate evaluation to exclude secondary causes. -Low bone mass at the hip or spine and a 10-year fracture probability by FRAX of greater than or equal to 3% for hip fracture or greater than or equal to 20% for major osteoporotic fracture based on the [place] adapted WHO algorithm. 4. Other Recommendations: All treatment decisions require clinical judgment and consideration of individual patient factors, including patient preferences, comorbidities, previous drug use, risk factors not captured in the FRAX model (e.g. frailty, falls, vitamin D deficiency, increased bone turnover, interval significant decline in bone density) and possible under or overestimation of fracture risk by FRAX. Additional medical evaluation for secondary cause of low bone mineral density may be appropriate. FUTURE SCAN RECOMMENDATION: People with diagnosed cases of osteoporosis or at high risk for fracture should have regular bone mineral density tests. For patients eligible for Medicare, routine testing is allowed once every 2 years. The testing frequency can be increased to one year for patients who have rapidly progressing disease, those who are receiving or discontinuing medical therapy to restore bone mass, or have additional risk factors.
== END 2023-10-21 13:08 | disposition home or self-care (01) ==
LOC: HO.MAMMO 13:07
PROVIDERS: PCP Physician Assistant; Visit Provider Physician Assistant
DX: Z12.31 Encounter for screening mammogram for malignant neoplasm of breast (principal); Z13.820 Encounter for screening for osteoporosis; Z78.0 Asymptomatic menopausal state
CPT/HCPCS: 77063; 77067; 77080

== ENCOUNTER → 2023-10-21 13:30 | Outpatient (BNV) | payer OTHER, SELFPAY | PROVIDERS: PCP Physician Assistant; Visit Provider Radiology Diagnostic Radiology | DX: Z12.31 Encounter for screening mammogram for malignant neoplasm of breast (principal) | CPT/HCPCS: 77063; 77067 ==

== ENCOUNTER 2023-12-13 11:13 | Outpatient (REF) | payer OTHER, SELFPAY | END 2023-12-13 11:14 | disposition home or self-care (01) | LOC: HO.LNP 11:13 | PROVIDERS: PCP Physician Assistant; Visit Provider Obstetrics & Gynecology | DX: Z01.419 Encounter for gynecological examination (general) (routine) without abnormal findings (principal) | CPT/HCPCS: 88175 ==

== ENCOUNTER 2023-12-13 11:13 | Outpatient (AMB) | payer OTHER, SELFPAY ==
[2023-12-13 11:53] VITALS: BP 122/70; BMI 32.3
--- NOTE | 2023-12-13 11:53 | MHC.OFFVIS ---
Vital Signs 12/13/23 11:53 Height 4 ft 11 in Weight 160 lb BMI 32.3 BP 122/70 Intake Visit Reasons: [employer],Annual [employer] Required: No Information Interpreted: non-clinical & clinical Comparison Shopper: Comparison Shopper Present (Denise GIBBONS) Accompanied by: Self / Same As Patient Allergies amoxicillin [Amoxicillin] Allergy (Unknown, Verified 12/13/23 11:54) UNKNOWN clavulanic acid [Augmentin] Allergy (Unknown, Verified 12/13/23 11:54) Unknown penicillin G [PENICILLIN G] Allergy (Unknown, Verified 12/13/23 11:54) UNKNOWN Post menopausal: Yes HPI Comments Details: Presenting for annual exam. No complaints. Last Pap/HPV was around 10 years ago according to the patient, no reports available Last Mammogram was BI-RADS 1 in 10/27 Last Colonoscopy was 10 years ago according to the patient , no reports available [facility] Medical History Abnormal myocardial perfusion study O2 dependent Major depressive disorder, recurrent, mild Generalized anxiety disorder Chronic sinusitis ILD (interstitial lung disease) Fatigue Cough Hypoxemia Sore throat and laryngitis Obstructive airway disease Restrictive airway disease Surgical History History of tubal ligation Family History Father No problems noted. Mother Atrial fibrillation Interstitial lung disease Brother Heart valve replaced Social History Housing: House Patient Tobacco Use Status: Never used Tobacco e-Cigarette/Vaping Use: Never Used service: No Current occupational status: disabled Cognitive needs: No Hearing needs: No Vision needs: Yes (cataracts) Female Reproductive History Menstrual Total pregnancies: 3 Full term: 3 Number of Living Children: 3 Date of last pap smear: 12/11/07 Date of Mammogram: 10/21/23 Date of last Bone Density Screenin10/21/23 Review of Systems Const All systems reviewed & are unremarkable except as noted in HPI and below Card Reports as per HPI Resp Reports as per HPI GI Reports as per HPI and Reports no additional complaints Reports as per HPI Physical Exam Vital Signs: Last Vital Signs BP 122/70 12/13/23 11:53 BMI result Body Mass Index 32.3 Const General: cooperative, healthy appearing and comfortable Chest Chest palpation & inspection: normal inspection of the chest and normal palpation of entire chest wall Breast/axilla inspection: normal inspection of the breasts and normal inspection of the axillae Breast/axilla palpation: normal palpation of the breasts, normal palpation of the axillae and no axillary lymphadenopathy Resp Effort & Inspection: normal respiratory effort Auscultation: clear to auscultation bilaterally Percussion: percussion normal Cardio Palpation: normal PMI Rate: regular rate Rhythm: regular rhythm Heart sounds: no murmurs and no rubs Peripheral pulses: Peripheral pulses 2+ throughout GI Inspection: Yes normal to inspection Palpation (GI): Soft to palpation, nontender, no guarding, not rigid and No hepatosplenomegaly present Percussion: Yes normal to percussion Auscultation: normal bowel sounds Rectal Exam - Female: deferred General: Yes bladder normal to palpation External Female Exam: No lesion Speculum Exam - Vagina: normal appearance of the vagina, normal palpation, normal vaginal discharge and not erythematous Speculum Exam - Cervix: normal appearance of the cervix and normal palpation Bimanual exam- vagina & uterus: normal bimanual exam, normal palpation, uterine size normal, bladder normal to palpation, consistency normal and normal palpation Bimanual Exam- Adnexa, other: normal adnexae, no masses and no tenderness Assessment & Plan Assessment & Plan (1) Well woman exam: Code(s): Z01.419 - Encounter for gynecological examination (general) (routine) without abnormal findings Category: Medical Plan: Co testing done. Counseled the patient about the recommended dietary allowance of 1200 mg of Calcium & 600 IU of vitamin D. Instructions given the patient to schedule next screening Mammogram in 10/28. The patient was referred to GI for screening colonoscopy . The patient was instructed to perform monthly self-breast exams and schedule annual exam in a year. All questions answered and the patient verbalized understanding. Orders: Referrals Gastroenterology Referral Z12.11 - Encounter for screening for malignant neoplasm of colon Coding Level of Care Code New Pt Prev Care 40-64y(88311) Diagnoses Well woman exam Z01.419
== END 2023-12-13 12:37 | disposition home or self-care (01) ==
PROVIDERS: PCP Physician Assistant; Visit Provider Obstetrics & Gynecology
DX: Z01.419 Encounter for gynecological examination (general) (routine) without abnormal findings (principal)
CPT/HCPCS: 99386

== ENCOUNTER 2023-12-21 14:22 | Outpatient (AMB) | payer OTHER, SELFPAY ==
--- NOTE | 2023-12-21 14:29 | MHC.PC.OV ---
Vital Signs 12/21/23 14:31 Height 4 ft 11 in Weight 161 lb 2 oz BMI 32.5 BP 134/82 Blood Pressure Location Rt brachial Position Sitting Pulse 73 Pulse Source Pulse Oximeter Temp 98.1 F Temp Source Oral Pulse Oximetry (%) 99 Oxygen Delivery Method Nasal Cannula Oxygen Flow Rate 2 Intake Visit Reasons: Follow UP Intake Note: Follow up. Thinks she has thrush. Pain in chest area. Just started using nystatin this morning. Allergies amoxicillin [Amoxicillin] Allergy (Unknown, Verified 12/21/23 14:30) UNKNOWN clavulanic acid [Augmentin] Allergy (Unknown, Verified 12/21/23 14:30) Unknown penicillin G [PENICILLIN G] Allergy (Unknown, Verified 12/21/23 14:30) UNKNOWN Medication List - Last Reconciled 12/21/23 by Pallavi Soni PA-C albuterol sulfate 2.5 mg (3 mL) inhalation Q4-6H PRN albuterol sulfate 90 mcg/actuation 2 puffs inhalation Q4H PRN Breo Ellipta 200-25 mcg/dose (fluticasone furoate-vilanterol) 1 ea PO DAILY NS cetirizine 10 mg PO DAILY PRN levothyroxine 75 mcg PO DAILY [id number]-lutein-herbal 293 80 mcg-166.7 mcg-66.7 mg (Alive Premium Women's 50 Plus) tabs PO nystatin 5 mL PO DAILY PRN Tobacco use date assessed: 09/28/23 Dental Screening Dental Screen Date: 09/28/23 HPI Follow UP HPI Details Patient is a 63-year-old female who presents today to follow up. She is accompanied today by her daughter Lizzy. She has a significant past medical history of hypothyroidism, interstitial lung disease, COPD, reactive airway disease, O2 dependence, pulmonary hypertension, chronic sinusitis, leukocytosis, depression, generalized anxiety and chronic fatigue. PULM: Follows with Dr. Gallego and was recently seen on 09/27/2023. States that her RAD, COPD and interstitial lung disease is overall stable. She was diagnosed with interstitial lung disease in 2008 and states became O2 dependent in 2016. The dependence got worse after a COVID infection a couple years ago. She does remain dependent on 2 L of oxygen throughout the day. No recent exacerbations but she does have a chronic cough and dyspnea with exertion. She is on breo and albuterol. states rarely uses albuterol. She denies ever smoking cigarettes. Her mother had interstitial lung disease and from complications related to this at the age of 74. -Wanted to see allergy and immunology but has not yet heard about the referral appointment. CV: Blood pressure today in the office is 134/82. She did follow with cardiology for a workup of the SUN and had an overall reassuring echo with an EF of 60-65%, negative cardiac catheterization in 2021 following a false-positive stress test. Endo: Last TSH was 15. She was started on levothyroxine 75 mcg. Reports compliance. She does have issues with losing weight. She states that she also feels tired all the time and this has been going on for the last few years. Heme: Has a hx of hx of leukocytosis it has followed with Heme-Onc and states was told that this was normal. Uro: She does have urinary incontinence when she laughs. She states that she also gets some urinary incontinence in the evening and asks for pads for her bed, adult depends and a bedside commode. States that she has a hard time at night getting up in time to use the bathroom. Psych: She is tearful today and does have a lot of stress regarding her medical diagnoses and she just brought her 1 y/o grandson home from [place] because her daughter is unable to care for him. She has 3 other siblings. She last saw a therapist over 10 years ago and states that it was through [facility] and she did not like this experience. She felt as if it was putting her against her daughter and causing the system to kidnap her grandchildren. She did not feel that she had a safe place to talk with someone. She has not sure that she would talk to a therapist. She states that she is somewhat against starting medication for this. She denies any SI/HI. She states that she is able to calm herself down if she feels like she is about to have a panic attack. She has coping mechanisms such as deep breathing. Reports a good support system with her other daughter Ariadna. Bone density: showed osteoporosis-has never been on meds and states that she was dx many years ago with this. she has not started calcium and vitamin d. she would like to talk to endocrinology about the possibilites of other medications. Mammo: [facility] Medical History Abnormal myocardial perfusion study O2 dependent Major depressive disorder, recurrent, mild Generalized anxiety disorder Chronic sinusitis ILD (interstitial lung disease) Fatigue Cough Hypoxemia Sore throat and laryngitis Obstructive airway disease Restrictive airway disease Surgical History History of tubal ligation Family History Father No problems noted. Mother Atrial fibrillation Interstitial lung disease Brother Heart valve replaced Social History Housing: House Patient Tobacco Use Status: Never used Tobacco e-Cigarette/Vaping Use: Never Used service: No Current occupational status: disabled Cognitive needs: No Hearing needs: No Vision needs: Yes (cataracts) Physical exam (Primary Care) Vital Signs: Last Vital Signs Temp 98.1 F 12/21/23 14:31 Pulse 73 12/21/23 14:31 BP 134/82 12/21/23 14:31 Pulse Ox 99 12/21/23 14:31 Oxygen Delivery Method Nasal Cannula 12/21/23 14:31 Oxygen Flow Rate 2 12/21/23 14:31 BMI result Body Mass Index 32.5 Tobacco/Smoking Status: Tobacco use Status Tobacco use date assessed 09/28/23 12/21/23 14:35 Patient Tobacco Use Status Never used Tobacco 12/21/23 14:35 e-Cigarette/Vaping Use Never Used 12/21/23 14:35 Const Orientation/consciousness: patient oriented x3 HENMT Ears: hearing grossly normal bilaterally Neck Thyroid: Thyroid normal Lymphatic: no lymphadenopathy noted Resp Auscultation: clear to auscultation bilaterally Cardio Rate: regular rate Rhythm: regular rhythm Heart sounds: S1 normal heart sound present and S2 normal heart sound present GI Inspection: Yes normal to inspection Palpation (GI): Soft to palpation and Other GI palpation findings present (nontender, no cva tenderness) Auscultation: normoactive bowel sounds Rectal Exam - Female: deferred Skin General skin exam: no rashes or lesions noted Neuro General: patient oriented x3, gait normal and no focal motor deficits Results Reviewed Results Reviewed: Laboratory Tests 10/05/23 09:49 WBC 12.9 H RBC 5.14 Hgb 14.0 Hct 43.1 Plt Count 338 Sodium 142 Potassium 4.0 Chloride 104 Creatinine 0.72 Estimated GFR > 60 Fasting Glucose 89 Triglycerides 91 Cholesterol 216 H LDL Cholesterol, Calc 156 H HDL Cholesterol 42 Vitamin B12 375 TSH 15.96 H bone density: IMPRESSION: 1. DIAGNOSIS: Osteoporosis based on the lowest T-score value of -2.8 in the total femur applying World Health Organization criteria. Neck u/s IMPRESSION: There are shotty, nonspecific, nonpathologic enlarged left cervical lymph nodes. No sizable lymphadenopathy is seen. There is no mass or fluid collection. Assessment and Plan Assessment & Plan (1) Osteoporosis: Code(s): M81.0 - Age-related osteoporosis without current pathological fracture Qualifiers: Osteoporosis type: unspecified Presence of current pathological fracture: without current pathological fracture Qualified Code(s): M81.0 - Age-related osteoporosis without current pathological fracture Plan: ref to endocrinology (2) Hypothyroidism: Code(s): E03.9 - Hypothyroidism, unspecified Qualifiers: Hypothyroidism type: acquired Qualified Code(s): E03.9 - Hypothyroidism, unspecified Plan: will check today (3) Dyslipidemia: Code(s): E78.5 - Hyperlipidemia, unspecified Plan: She does not want to start a cholesterol medication. She prefers to work on diet changes. (4) Urinary incontinence: Code(s): R32 - Unspecified urinary incontinence Qualifiers: Urinary Incontinence type: mixed stress and urge incontinence Qualified Code(s): N39.46 - Mixed incontinence Plan: States that she has been worked up for this in the past. Prescriptions for adult depends, bed pads and bedside commode (5) Generalized anxiety disorder: Code(s): F41.1 - Generalized anxiety disorder (6) Major depressive disorder, recurrent, mild: Code(s): F33.0 - Major depressive disorder, recurrent, mild Plan: We will start Lexapro. Discussed risks and benefits and adverse effects of this medication at length. Follow up in 3-4 weeks to be reassessed. Sooner if needed. Patient understands and agrees with the plan. Orders: Orders TSH reflex Free T4 12/21/23 E03.9 - Hypothyroidism, unspecified, E78.5 - Hyperlipidemia, unspecified Lipid Panel 12/21/23 E03.9 - Hypothyroidism, unspecified, E78.5 - Hyperlipidemia, unspecified Referrals Endocrinology Referral M81.0 - Age-related osteoporosis without current pathological fracture Medications: New diaper,brief,adult,disposable As directed BID 64 ea 11RF R32 - Unspecified urinary incontinence underpads (Bed Underpads) As directed nightly 100 ea 3RF R32 - Unspecified urinary incontinence escitalopram oxalate (Lexapro) take 1/2 tab po x 7 days then increase to full tab 10 mg PO DAILY 90 tabs 0RF calcium carbonate-vitamin D3 600 mg-12.5 mcg (500 unit) 1 cap PO DAILY 90 caps 3RF 90 days miscellaneous medical supply As directed 1 ea 0RF R32 - Unspecified urinary incontinence Coding Level of Care Code Est Pt Level 4 (09990) Complex EM visit Add On G2211 Diagnoses Osteoporosis without current pathological fracture, unspecified osteoporosis type M81.0 Osteoporosis type: unspecified Presence of current pathological fracture: without current pathological fracture Acquired hypothyroidism E03.9 Hypothyroidism type: acquired Dyslipidemia E78.5 Mixed stress and urge urinary incontinence N39.46 Urinary Incontinence type: mixed stress and urge incontinence Generalized anxiety disorder F41.1 Major depressive disorder, recurrent, mild F33.0
[2023-12-21 14:31] VITALS: BP 134/82; PULSE 73; TEMP 36.7; O2SAT 99; BMI 32.5
== END 2023-12-21 15:08 | disposition home or self-care (01) ==
PROVIDERS: PCP Physician Assistant; Visit Provider Physician Assistant
DX: M81.0 Age-related osteoporosis without current pathological fracture (principal); E03.9 Hypothyroidism, unspecified; E78.5 Hyperlipidemia, unspecified; N39.46 Mixed incontinence; F41.1 Generalized anxiety disorder; F33.0 Major depressive disorder, recurrent, mild
CPT/HCPCS: 99214; G2211

== ENCOUNTER 2023-12-21 15:11 | Outpatient (REF) | payer OTHER, SELFPAY ==
[2023-12-21 19:43] LABS: Cholesterol 186 mg/dL (<200); HDL Cholesterol 40 mg/dL (>40); TSH reflex Free T4 1.61 uIU/mL (0.32-4.0)
[2023-12-21 19:45] LABS: LDL Cholesterol Calculated 121 mg/dL (<100); Triglycerides 125 mg/dL (<150)
== END 2023-12-21 15:12 | disposition home or self-care (01) ==
LOC: HO.WFDLDS 15:11
PROVIDERS: Visit Provider Physician Assistant
DX: E03.9 Hypothyroidism, unspecified (principal); E78.5 Hyperlipidemia, unspecified
CPT/HCPCS: 36415; 80061; 84443

== ENCOUNTER 2024-01-12 14:07 | Outpatient (AMB) | payer OTHER, SELFPAY ==
--- NOTE | 2024-01-12 14:18 | A.OFFPC_ITS ---
Vital Signs 01/12/24 14:29 Height 4 ft 11 in Weight 161 lb 2 oz BMI 32.5 BP 154/88 H Blood Pressure Location Rt brachial Position Sitting Respiration 16 Pulse 76 Pulse Source Pulse Oximeter Temp 97.6 F Temp Source Oral Pulse Oximetry (%) 97 Oxygen Delivery Method Nasal Cannula Intake Visit Reasons: anxiety Intake Note: patient here for follow up on anxiety. 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 Director Required: No Is last menstrual period known: No Post menopausal: No Patient : No Allergies amoxicillin [Amoxicillin] Allergy (Unknown, Verified 12/21/23 14:30) UNKNOWN clavulanic acid [Augmentin] Allergy (Unknown, Verified 12/21/23 14:30) Unknown penicillin G [PENICILLIN G] Allergy (Unknown, Verified 12/21/23 14:30) UNKNOWN Medication List - Last Reconciled 01/12/24 by Pallavi Soni PA-C albuterol sulfate 2.5 mg (3 mL) inhalation Q4-6H PRN albuterol sulfate 90 mcg/actuation 2 puffs inhalation Q4H PRN Breo Ellipta 200-25 mcg/dose (fluticasone furoate-vilanterol) 1 ea PO DAILY NS calcium carbonate-vitamin D3 600 mg-10 mcg (400 unit) (Calcium 600 with Vitamin D3) 1 tab PO DAILY cetirizine 10 mg PO DAILY PRN diaper,brief,adult,disposable As directed BID levothyroxine 75 mcg PO DAILY miscellaneous medical supply As directed ne-ri-fzggt-lutein-herbal 293 80 mcg-166.7 mcg-66.7 mg (Alive Premium Women's 50 Plus) tabs PO nystatin 5 mL PO DAILY PRN underpads (Bed Underpads) As directed nightly Tobacco use date assessed: 01/12/24 Fall risk assessment: No Falls in past year Last assessed Fall Risk: 01/12/24 Dental Screening Dental Screen Date: 01/12/24 Did you have a dental visit in the last 12 months?: No Did you have a dental problem in the last 6 months where you did not have access to dental care?: No Was dental information given to patient?: No HPI anxiety HPI Details Patient is a 63-year-old female with a significant past medical history of interstitial lung disease, O2 dependence, hyperlipidemia, hypothyroidism, chronic cough, asthma, pulmonary hypertension, chronic fatigue presenting today for a follow up. Psych: At our last visit I started her on Lexapro for her anxiety and reactive depression but she states that she never took this. She is tearful and states that she is under a lot of stress as she is now taking care of her 1-year-old grandson, her 18-year-old granddaughter and they are filing for custody of her daughter's other children. Patient states that they do not trust DCF and do not want them involved but recently the 13-year-old granddaughter in [place] called DCF on the patient's mother. Patient states that she is under a lot of stress but does not think Lexapro could fix it. She says that she does not want to take anything. If anything she would like to take something for panic attacks. She gets them infrequently and overall feels like she has a good sense of management on her anxiety. Does not want to meet with anyone. HEENT: She does report today that she is sick with an upper respiratory infection. States that she has sinus pain and pressure after having a cold for the last week. She is also coughing more than she normally does. She has not really needed to use her rescue inhaler but does feel some tightness in her lungs at times when she is breathing. She is compliant with her inhalers and oxygen. She has an appointment in a couple of weeks with her textile scrap salvager. No fevers or chills. She believes she picked this up from her grandson. CV: Blood pressure is elevated today at 154/88. She states that she is under a lot of stress today and states that it is normally normal. [facility] Medical History Abnormal myocardial perfusion study O2 dependent Major depressive disorder, recurrent, mild Generalized anxiety disorder Chronic sinusitis ILD (interstitial lung disease) Fatigue Cough Hypoxemia Sore throat and laryngitis Obstructive airway disease Restrictive airway disease Surgical History History of tubal ligation Family History Father No problems noted. Mother Atrial fibrillation Interstitial lung disease Brother Heart valve replaced Social History Housing: House Patient Tobacco Use Status: Never used Tobacco e-Cigarette/Vaping Use: Never Used service: No Current occupational status: disabled Current occupational exposures/hazards: No Cognitive needs: No Hearing needs: No Vision needs: Yes (cataracts) Questionnaire PHQ-9 Over the last 2 weeks, how often have you been bothered by any of the following problems? 1. Little interest or pleasure in doing things: not at all 2. Feeling down, depressed, or hopeless: not at all 3. Trouble falling or staying asleep, or sleeping too much: not at all 4. Feeling tired or having little energy: not at all 5. Poor appetite or overeating: not at all 6. Feeling bad about yourself - or that you are a failure or have let yourself or your family down: not at all 7. Trouble concentrating on things, such as reading the newspaper or watching television: not at all 8. Moving or speaking so slowly that other people could have noticed. Or the opposite - being so fidgety or restless that you have been moving around a lot more than usual: not at all 9. Thoughts that you would be better off or of hurting yourself in some way: not at all Total score: 0 Source: Developed by Drs. Shane Guajardo, Estrella Broderick, Christopher Burden and colleagues, with an educational cleo from [employer]. ARABELLA-7 AMB Questionnaire ARABELLA-7 Date ARABELLA - 7 assessed: 01/12/24 Feeling nervous, anxious, or on edge: 1 = Several days Not being able to stop or control worryin = Several days Worrying too much about different things: 1 = Several days Trouble relaxin = Not at all Being so restless that it is hard to sit still: 0 = Not at all Becoming easily annoyed or irritable: 1 = Several days Feeling afraid as if something awful might happen: 0 = Not at all Total ARABELLA-7 score (0-4 normal; 5-9 mild; 10-14 moderate; 15-21 severe): 4 Source: Developed by Drs. Shane Guajardo, Estrella Broderick, Christopher Burden and colleagues, with an educational cleo from [employer]. Physical exam (Primary Care) Vital Signs: Last Vital Signs Temp 97.6 F 01/12/24 14:29 Pulse 76 01/12/24 14:29 Resp 16 01/12/24 14:29 BP 154/88 H 01/12/24 14:29 Pulse Ox 97 01/12/24 14:29 Oxygen Delivery Method Nasal Cannula 01/12/24 14:29 BMI result Body Mass Index 32.5 Tobacco/Smoking Status: Tobacco use Status Tobacco use date assessed 01/12/24 01/12/24 14:29 Patient Tobacco Use Status Never used Tobacco 01/12/24 14:21 e-Cigarette/Vaping Use Never Used 01/12/24 14:21 PHQ-9: PHQ-9 Score PHQ-9: Total score 0 01/12/24 14:56 Const Orientation/consciousness: patient oriented x3 HENMT Other: Nasal mucosa erythematous and edematous. Purulent drainage noted. Sinus tenderness present. Ears: hearing grossly normal bilaterally and TM's normal bilaterally Neck Thyroid: Thyroid normal Lymphatic: no lymphadenopathy noted Resp Auscultation: wheezes scattered wheezes Cardio Rate: regular rate Rhythm: regular rhythm Heart sounds: S1 normal heart sound present and S2 normal heart sound present Skin General skin exam: no rashes or lesions noted Neuro General: patient oriented x3, gait normal and no focal motor deficits Assessment and Plan Assessment & Plan (1) Generalized anxiety disorder: Code(s): F41.1 - Generalized anxiety disorder Plan: We will start hydroxyzine as needed for panic attacks. Discussed risks and benefits and adverse effects of this medication. (2) Chronic sinusitis: Code(s): J32.9 - Chronic sinusitis, unspecified Qualifiers: Sinusitis location: maxillary Qualified Code(s): J32.0 - Chronic maxillary sinusitis Plan: Does not tolerate most antibiotics. I will start her on azithromycin. Discussed risks and benefits and adverse effects of this medication. Prednisone taper to start given the wheezing on exam. (3) ILD (interstitial lung disease): Comment: CHEST X-RAYS HAVE SHOWN INCREASED BRONCHOVASCULAR MARKINGS ESPECIALLY IN THE LO WER LOBES, SHE HAS PREVIOUS HISTORY OF ALVEOLITIS . CURRENT CT SCAN DOES SHOW, SOME IMPROVEMENT FROM BEFORE, BUT SHE STILL HAS SMALL LUNG VOLUME Code(s): J84.9 - Interstitial pulmonary disease, unspecified Plan: As above (4) Elevated BP without diagnosis of hypertension: Code(s): R03.0 - Elevated blood-pressure reading, without diagnosis of hypertension Plan: We will recheck in a couple of months. She will monitor at home. She will follow up sooner if anything worsens or changes. Patient understands and agrees with the plan. Medications: New hydroxyzine HCl 25 mg PO BID 30 days PRN 30 tabs 2RF anxiety calcium carbonate-vitamin D3 600 mg-10 mcg (400 unit) (Calcium 600 with Vitamin D3) 1 tab PO DAILY 90 tabs 3RF prednisone take 3 tab po x 3 days, take 2 tab po x 3 days, take 1 tab po x 3 days; 18 tabs 0RF azithromycin For 250 mg dose pack: take 500 mg today (day 1), then 250 mg for 4 days (days 2-5) PO 6 tabs 0RF Coding Level of Care Code Complex EM visit Add On [id number] Diagnoses Generalized anxiety disorder F41.1 Chronic maxillary sinusitis J32.0 Sinusitis location: maxillary ILD (interstitial lung disease) J84.9 Elevated BP without diagnosis of hypertension R03.0
[2024-01-12 14:29] VITALS: BP 154/88; PULSE 76; RESP 16; TEMP 36.4; O2SAT 97; BMI 32.5
== END 2024-01-12 15:00 | disposition home or self-care (01) ==
PROVIDERS: PCP Physician Assistant; Visit Provider Physician Assistant
DX: F41.1 Generalized anxiety disorder (principal); J32.0 Chronic maxillary sinusitis; J84.9 Interstitial pulmonary disease, unspecified; R03.0 Elevated blood-pressure reading, without diagnosis of hypertension
CPT/HCPCS: 99214; G2211

== ENCOUNTER 2024-01-19 15:32 | Outpatient (AMB) | payer OTHER, SELFPAY ==
[2024-01-19 15:42] VITALS: BP 136/72; PULSE 78; BMI 32.9
--- NOTE | 2024-01-19 15:42 | MHC.OFFVIS ---
Vital Signs 01/19/24 15:42 Height 4 ft 11 in Weight 162 lb 11.218 oz BMI 32.9 BP 136/72 Blood Pressure Location Lt brachial Position Sitting Pulse 78 Pulse Source Pulse Oximeter Intake Visit Reasons: Osteoporosis-confirmed Intake Note: Patient present today for Osteoporosis follow up visit. King Maker Required: No Accompanied by: Daughter Allergies amoxicillin [Amoxicillin] Allergy (Unknown, Verified 01/19/24 15:47) UNKNOWN clavulanic acid [Augmentin] Allergy (Unknown, Verified 01/19/24 15:47) Unknown penicillin G [PENICILLIN G] Allergy (Unknown, Verified 01/19/24 15:47) UNKNOWN HPI Comments Details: 63 YO F with is seen in consultation at the request of PCP for Osteoporosis. First diagnosed in > 10 yrs .Not seen specialist before No history of pathologic fracture or ONJ. Has several servings of dietary calcium per day in the form of cheese , yogurt . No Takes Calcium supplement mg daily in divided doses. Not Takes IU of Vitamin D daily. Denies ever using PPI, anticoagulant, antiepileptic but takes glucocorticoid medication rarely . 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 age of menopause Denies history of Kidney stones: Mom- family history of Osteoporosis , No hip fracture. UTD on dental cleanings and sees dentist every 6 months.- adentulous No planned upcoming dental work or extractions. DXA dated :10/21/2023 EXAMINATION: BONE DENSITOMETRY CLINICAL INDICATION: Menopausal and female climacteric states. COMPARISON: This is the patient's baseline examination. TECHNIQUE: Using a [employer]olog[employer] DXA System (software version: 13.1) manufactured by [employer], dual-energy x-ray absorptiometry was performed of the lumbar spine and left hip. The images are of good technical quality. Summary results are attached. FINDINGS: LEFT FEMUR, NECK: BMD 0.694 g/cm2, Z-score -1.2, T-score -2.5, osteoporosis. LEFT FEMUR, TOTAL: BMD 0.656 g/cm2, Z-score -1.8, T-score -2.8, osteoporosis. AP SPINE L1-L4: BMD 1.000 g/cm2, Z-score -0.3, T-score -1.5, osteopenia. IDENTIFIED RISK FACTORS: Early menopause, secondary osteoporosis, glucocorticoids (chronic), low calcium intake. HISTORY OF FRACTURE: None listed. MEDICATIONS: Multivitamin. MM/XR DEXA axial skeleton IMPRESSION: 1. DIAGNOSIS: Osteoporosis based on the lowest T-score value Labs: [facility] Medical History Abnormal myocardial perfusion study O2 dependent Major depressive disorder, recurrent, mild Generalized anxiety disorder Chronic sinusitis ILD (interstitial lung disease) Fatigue Cough Hypoxemia Sore throat and laryngitis Obstructive airway disease Restrictive airway disease Surgical History History of tubal ligation Family History Father No problems noted. Mother Atrial fibrillation Interstitial lung disease Brother Heart valve replaced Social History Housing: House Patient Tobacco Use Status: Never used Tobacco e-Cigarette/Vaping Use: Never Used service: No Current occupational status: disabled Current occupational exposures/hazards: No Cognitive needs: No Hearing needs: No Vision needs: Yes (cataracts) Physical Exam Vital Signs: Last Vital Signs Pulse 78 01/19/24 15:42 BP 136/72 01/19/24 15:42 BMI result Body Mass Index 32.9 There are no Cushingoid features. Absence of blue sclera. Absence of kyphosis. Thyroid gland is of nl size and weighs 15 gms. There are no thyroid nodules palpated. Lungs CTA. Heart S1 S2 Reg R/R Abdominal exam benign. Muscle strength 5/5 . Examination of spine reveals absence of tenderness on palpation Assessment & Plan Assessment & Plan (1) Osteoporosis: Code(s): M81.0 - Age-related osteoporosis without current pathological fracture Category: Medical Qualifiers: Osteoporosis type: unspecified Presence of current pathological fracture: without current pathological fracture Qualified Code(s): M81.0 - Age-related osteoporosis without current pathological fracture Plan: This is a 63-year-old white female with a history of osteoporosis. Rule out secondary causes Plan is to check a 25 hydroxy vitamin-D, 24 hour urine for calcium and creatinine, SPEP, urine immunofixation. Will ensure 1200 mg of calcium and vitamin D3 2000 units. Assuming secondary workup is negative could consider pharmacologic treatment with anti resorptive medication like oral intravenous bisphosphonate or Prolia Orders: Orders Protein Electrophoresis, Serum Today M81.0 - Age-related osteoporosis without current pathological fracture Vitamin D 25-OH Total Today M81.0 - Age-related osteoporosis without current pathological fracture Creatinine, 24 Hr Group Today M81.0 - Age-related osteoporosis without current pathological fracture Calcium, 24 Hr Ur Today M81.0 - Age-related osteoporosis without current pathological fracture Immunofixation, Random Urine Today M81.0 - Age-related osteoporosis without current pathological fracture Coding Level of Care Code New Pt Level 4 (57314) Diagnoses Osteoporosis without current pathological fracture, unspecified osteoporosis type M81.0 Osteoporosis type: unspecified Presence of current pathological fracture: without current pathological fracture
== END 2024-01-19 16:16 | disposition home or self-care (01) ==
PROVIDERS: PCP Physician Assistant; Visit Provider Internal Medicine Endocrinology, Diabetes & Metabolism
DX: M81.0 Age-related osteoporosis without current pathological fracture (principal)
CPT/HCPCS: 99204

== ENCOUNTER → 2024-01-19 15:32 | Outpatient (BNVA) | payer OTHER, SELFPAY | PROVIDERS: PCP Physician Assistant; Visit Provider Internal Medicine Endocrinology, Diabetes & Metabolism | DX: M81.0 Age-related osteoporosis without current pathological fracture (principal) | CPT/HCPCS: 99202 ==

== ENCOUNTER 2024-01-25 11:03 | Outpatient (REF) | payer OTHER, SELFPAY ==
[2024-01-25 14:07] LABS: Vitamin D 25-OH Total 66.7 ng/mL (>30)
[2024-01-27 10:18] LABS: Prot Elec - Albumin 4.5 g/dL (3.8-4.8); Prot Elec - Alpha1 0.4 g/dL (0.2-0.3); Prot Elec - Alpha2 0.9 g/dL (0.5-0.9); Prot Elec - Beta 1 0.5 g/dL (0.4-0.6); Prot Elec - Beta 2 0.3 g/dL (0.2-0.5); Prot Elec - Gamma 0.8 g/dL (0.8-1.7); Prot Elec - Total Protein 7.3 g/dL (6.1-8.1)
== END 2024-01-25 11:04 | disposition home or self-care (01) ==
LOC: HO.LAB 11:03
PROVIDERS: Absent Provider Internal Medicine Endocrinology, Diabetes & Metabolism; PCP Physician Assistant; Visit Provider Internal Medicine
DX: M81.0 Age-related osteoporosis without current pathological fracture (principal); J84.9 Interstitial pulmonary disease, unspecified; R05.3 Chronic cough; R09.02 Hypoxemia; J98.4 Other disorders of lung; J44.9 Chronic obstructive pulmonary disease, unspecified
CPT/HCPCS: 36415; 82306; 84165; 99212

== ENCOUNTER 2024-01-25 11:03 | Outpatient (AMB) | payer OTHER, SELFPAY ==
--- NOTE | 2024-01-25 11:14 | A.OFFVIS_ITS ---
Vital Signs 01/25/24 11:15 Height 4 ft 11 in Weight 159 lb 13.362 oz BMI 32.3 BP 130/90 H Blood Pressure Location Lt brachial Position Sitting Pulse 73 Pulse Source Pulse Oximeter Pulse Oximetry (%) 94 Oxygen Delivery Method Nasal Cannula Oxygen Flow Rate 2 Intake Visit Reasons: copd Intake Note: pt is here for follow up and is not feeling well, she is having a spasm in the back wing blade, and she has thrush that she is using Nystantin but not getting much relief, is there a pill? also she needs refill on nebulizer medication sent to pharmacy. Radioisotope Technologist Required: No Allergies amoxicillin [Amoxicillin] Allergy (Unknown, Verified 01/25/24 11:46) UNKNOWN clavulanic acid [Augmentin] Allergy (Unknown, Verified 01/25/24 11:46) Unknown penicillin G [PENICILLIN G] Allergy (Unknown, Verified 01/25/24 11:46) UNKNOWN Medication List - Last Reconciled 01/25/24 by Heladio Gallego MD albuterol sulfate 2.5 mg (3 mL) inhalation Q4-6H PRN albuterol sulfate 90 mcg/actuation 2 puffs inhalation Q4H PRN Breo Ellipta 200-25 mcg/dose (fluticasone furoate-vilanterol) 1 ea PO DAILY NS calcium carbonate-vitamin D3 600 mg-10 mcg (400 unit) (Calcium 600 with Vitamin D3) 1 tab PO DAILY cetirizine 10 mg PO DAILY PRN diaper,brief,adult,disposable As directed BID hydroxyzine HCl 25 mg PO BID PRN 30 days levothyroxine 75 mcg PO DAILY miscellaneous medical supply As directed yi-pl-hmfxb-lutein-herbal 293 80 mcg-166.7 mcg-66.7 mg (Alive Premium Women's 50 Plus) tabs PO nystatin 5 mL PO DAILY PRN underpads (Bed Underpads) As directed nightly Do you need a note to return to daycare/school/sports/work: No HPI HPI copd: Details: This 63 years old female with COPD and restrictive pulmonary disorder, O2 dependence, Comes for her routine follow-up after 4 months. Has been doing fairly well except for the last 2 weeks when she had symptoms of upper r.espiratory infection . She was treated with a course of prednisone and azithromycin, by her PCP. Feels better but still has some scratchy feeling in the upper airways she attributes the symptoms to recurrent thrush. She is on nystatin swishes which is no,t helping, claims that she also has vaginal itch. she continues to use Breo 1 inhalation daily and albuterol ,p.r.n. also stays on O2 3 L/minute continuously. [facility] Medical History Abnormal myocardial perfusion study O2 dependent Major depressive disorder, recurrent, mild Generalized anxiety disorder Chronic sinusitis ILD (interstitial lung disease) Fatigue Cough Hypoxemia Sore throat and laryngitis Obstructive airway disease Restrictive airway disease Surgical History History of tubal ligation Family History Father No problems noted. Mother Atrial fibrillation Interstitial lung disease Brother Heart valve replaced Social History Housing: House Patient Tobacco Use Status: Never used Tobacco e-Cigarette/Vaping Use: Never Used service: No Current occupational status: disabled Current occupational exposures/hazards: No Cognitive needs: No Hearing needs: No Vision needs: Yes (cataracts) Review of Systems Const All systems reviewed & are unremarkable except as noted in HPI and below Eyes Reports no additional complaints ENT Reports nasal congestion (MILD INTERMITTENT) and Reports sore throat (QUITE FREQUENT, OFF AND ON AND MAINLY DUE TO THRUSH.) Card Denies chest pain, Denies leg edema and Reports dyspnea on exertion Resp Reports as per HPI and Reports dyspnea on exertion GI Reports no additional complaints Reports no additional complaints Musc Reports no additional complaints Skin/Breast Reports system reviewed and no additional complaints, except as documented Neuro Reports no additional complaints Psych Reports no additional complaints Physical Exam Vital Signs: Last Vital Signs Pulse 73 01/25/24 11:15 BP 130/90 H 01/25/24 11:15 Pulse Ox 94 01/25/24 11:15 Oxygen Delivery Method Nasal Cannula 01/25/24 11:15 Oxygen Flow Rate 2 01/25/24 11:15 BMI result Body Mass Index 32.3 Const General: comfortable, no acute distress, alert and awake Orientation/consciousness: patient oriented x3 HEENT Head: Yes normal to inspection General nose exam: No nasal polyps present and No nasal discharge present Face and sinus: Yes sinuses nontender Mouth: oropharynx normal (There is no redness or swelling.) Teeth and gingiva: edentulous (S/P MULTIPLE EXTRACTIONS.) Throat: Yes posterior oropharynx normal and Yes other (No evidence of any thrush at this time) Eyes General: appearance normal, both eyes and all related structures Neck Neck: Yes normal visual inspection, Yes no lymphadenopathy, Yes trachea midline and Yes no JVD Thyroid: Thyroid normal Chest Chest palpation & inspection: normal inspection of the chest, normal palpation of entire chest wall and no tenderness Resp Other: PERCUSSION NOTE RESONANT, BREATH SOUNDS ARE SLIGHTLY DISTANT WITH PROLONGED EXPIRATORY PHASE. BOTH LUNGS ARE CLEAR TODAY WITHOUT ANY WHEEZES OR RHONCHI.A FEW FINE CREPS, OVER THE RT BASE . SHE DOES GET COUGH WHEN SHE TAKES A DEEP BREATH. Cardio Palpation: normal PMI Rate: regular rate Rhythm: regular rhythm Heart sounds: no gallops and no murmurs GI Palpation (GI): Soft to palpation, nontender, No hepatosplenomegaly present and no masses Auscultation: normal bowel sounds Back/Spine/Pelvis Thoracic/Lumbar Spine: thoracic and lumbar spine normal to inspection Skin General skin exam: no rashes or lesions noted Neuro General: patient oriented x3 and no focal motor deficits Cranial nerves: Yes CN's II-XII intact bilaterally Extrem General: Yes normal to inspection, Yes no clubbing, cyanosis or edema and Yes no calf tenderness Psych Appearance: grossly normal and well kempt Speech and movement: Normal speech and movement present Assessment & Plan Assessment & Plan (1) ILD (interstitial lung disease): Comment: CHEST X-RAYS HAVE SHOWN INCREASED BRONCHOVASCULAR MARKINGS ESPECIALLY IN THE LOWER LOBES, SHE HAS PREVIOUS HISTORY OF ALVEOLITIS . CURRENT CT SCAN DOES SHOW, SOME IMPROVEMENT FROM BEFORE, BUT SHE STILL HAS SMALL LUNG VOLUME PULMONARY FUNCTION TEST HAS SHOWN SIGNIFICANT RESTRICTIVE PULMONARY DISORDER. Code(s): J84.9 - Interstitial pulmonary disease, unspecified Category: Medical Plan: CONTINUE TO DO DEEP BREATHING EXERCISES 2 TO 3 TIMES A DAY. CONTINUE USING O2 (2) Cough: Comment: CHRONIC COUGH DUE TO COMBINATION OF ALLERGIC RHINITIS, COPD, MILD ,RESTRICTIVE PULMONARY DISORDER AND REACTIVE AIRWAYS . Code(s): R05 - Cough Category: Medical Qualifiers: Cough type: chronic Qualified Code(s): R05.3 - Chronic cough Plan: USE COUGH DROPS OR OTC COUGH MEDS NEEDED. (3) Hypoxemia: Comment: PATIENT HAS CHRONIC HYPOXEMIA SINCE 2016 WHEN SHE HAD ACUTE INTERSTITIAL LUNG DISEASE. AFTER THE COVID INFECTION IN NOVEMBER 2021 , HER O2 REQUIREMENT HAS INCREASED AND SHE USES 3 L/MINUTE. Code(s): R09.02 - Hypoxemia Category: Medical Plan: CONTINUE O2 3 L/MINUTE AT NIGHT AND DURING THE DAYTIME. SHE DOES HAVE POC FOR PORTABILITY (4) Restrictive airway disease: Comment: Post pneumonitis in 2016 . She has had restrictive lung disease., moderately severe. It is remaining relatively stable. Code(s): J98.4 - Other disorders of lung Category: Medical Plan: DEEP BREATHING EXERCISES 2 TO 3 TIMES A DAY (5) Obstructive airway disease: Comment: Mild, but she has frequent cough, representing reactive airways Code(s): J44.9 - Chronic obstructive pulmonary disease, unspecified Category: Medical Plan: CONTINUE BREO 200-251 INHALATION DAILY NOTED ABOVE O2 3 L/MINUTE CONTINUOUSLY. SHE IS PRONE TO HAVE RECURRENT ORAL THRUSH, SYMPTOMS, USES NYSTATIN SWISHES P.R.N.. PRESENTLY AFTER A COURSE OF P,REDNISON E HER SYMPTOMS ARE PERSISTING AND SHE IS REQUESTING AN ORAL PILL ( DI FLUCAN) WHICH I HAVE PRESCRIBED FOR 1 WEEK. Medications: New fluconazole (Diflucan) 100 mg PO DAILY 7 days 7 tabs 0RF CANDIDIASIS Coding Level of Care Code Est Pt Level 3 (97513) Diagnoses ILD (interstitial lung disease) J84.9 Chronic cough R05.3 Cough type: chronic Hypoxemia R09.02 Restrictive airway disease J98.4 Obstructive airway disease J44.9
[2024-01-25 11:15] VITALS: BP 130/90; PULSE 73; O2SAT 94; BMI 32.3
== END 2024-01-25 11:40 | disposition home or self-care (01) ==
PROVIDERS: PCP Physician Assistant; Visit Provider Internal Medicine
DX: J84.9 Interstitial pulmonary disease, unspecified (principal); R05.3 Chronic cough; R09.02 Hypoxemia; J98.4 Other disorders of lung; J44.9 Chronic obstructive pulmonary disease, unspecified
CPT/HCPCS: 99213

== ENCOUNTER 2024-05-02 10:58 | Outpatient (AMB) | payer OTHER, SELFPAY ==
--- NOTE | 2024-05-02 11:09 | A.OFFPC_ITS ---
Vital Signs 05/02/24 11:15 BP 132/78 Blood Pressure Location Lt brachial Position Sitting Pulse 67 Pulse Source Pulse Oximeter Temp 98.1 F Temp Source Oral Pulse Oximetry (%) 97 Oxygen Delivery Method Nasal Cannula Oxygen Flow Rate 2 Intake Visit Reasons: med follow up Intake Note: Follow up, cough and hoarse voice. Ran out of ceterizine Moss Gatherer Required: No Accompanied by: Daughter Allergies amoxicillin [Amoxicillin] Allergy (Unknown, Verified 05/02/24 11:10) UNKNOWN clavulanic acid [Augmentin] Allergy (Unknown, Verified 05/02/24 11:10) Unknown penicillin G [PENICILLIN G] Allergy (Unknown, Verified 05/02/24 11:10) UNKNOWN Medication List - Last Reconciled 05/02/24 by Pallavi Soni PA-C albuterol sulfate 90 mcg/actuation 2 puffs inhalation Q4H PRN albuterol sulfate 2.5 mg (3 mL) inhalation Q4-6H PRN Breo Ellipta 200-25 mcg/dose (fluticasone furoate-vilanterol) 1 ea PO DAILY NS cetirizine 10 mg PO DAILY PRN diaper,brief,adult,disposable As directed BID hydroxyzine HCl 25 mg PO BID PRN 30 days levothyroxine 75 mcg PO DAILY miscellaneous medical supply As directed dk-qq-ngnzp-lutein-herbal 293 80 mcg-166.7 mcg-66.7 mg (Alive Premium Women's 50 Plus) tabs PO nystatin 5 mL PO DAILY PRN underpads (Bed Underpads) As directed nightly Tobacco use date assessed: 01/12/24 Dental Screening Dental Screen Date: 01/12/24 HPI med follow up HPI Details Patient is a 63-year-old female who presents today for a follow up. She has a significant past medical history of hyperlipidemia, hypothyroidism, osteoporosis, anxiety, depression, interstitial lung disease, pulmonary hypertension, O2 dependence, AAYUSH in RAD. She states 1 week ago she started with runny nose, sinus congestion, productive cough. She states she has not needed to use albuterol. No fever or chills. Not needing to use more o2 than normal. CV: Blood pressure today in the office is 132/78. States as usually even a little bit better than this. PULM: Follows with pulmonology and is currently on Breo, albuterol as needed, daily, continuous oxygen use and CPAP. Psych: Anxiety and depression is flared as she is actively involved with [employer] and recently has been struggling with issues with her daughter and having to take custody of some of her grandchildren. She has a prescription for hydroxyzine to use as needed for panic attack but has not use this. She does think she would benefit from something to take daily. Endo: On levothyroxine 75 mcg daily for her hypothyroidism. Mammo: 10/27 Bone density: Up-to-date, 2023-osteoporosis [facility] Medical History Abnormal myocardial perfusion study O2 dependent Major depressive disorder, recurrent, mild Generalized anxiety disorder Chronic sinusitis ILD (interstitial lung disease) Fatigue Cough Hypoxemia Sore throat and laryngitis Obstructive airway disease Restrictive airway disease Surgical History History of tubal ligation Family History Father No problems noted. Mother Atrial fibrillation Interstitial lung disease Brother Heart valve replaced Social History (Updated 05/02/24 @ 11:19 by Cora Álvarez CMA) Housing: House Patient Tobacco Use Status: Never used Tobacco e-Cigarette/Vaping Use: Never Used service: No Current occupational status: disabled Current occupational exposures/hazards: No Cognitive needs: No Hearing needs: No Vision needs: Yes (cataracts) Questionnaire ARABELLA-7 AMB Questionnaire ARABELLA-7 Date ARABELLA - 7 assessed: 01/12/24 Source: Developed by Drs. Shane Guajardo, Estrella Broderick, Christopher Burden and colleagues, with an educational cleo from [employer]. Physical exam (Primary Care) Vital Signs: Last Vital Signs Temp 98.1 F 05/02/24 11:15 Pulse 67 05/02/24 11:15 BP 132/78 05/02/24 11:15 Pulse Ox 97 05/02/24 11:15 Oxygen Delivery Method Nasal Cannula 05/02/24 11:15 Oxygen Flow Rate 2 05/02/24 11:15 Tobacco/Smoking Status: Tobacco use Status Tobacco use date assessed 01/12/24 05/02/24 11:15 Patient Tobacco Use Status Never used Tobacco 05/02/24 11:19 e-Cigarette/Vaping Use Never Used 05/02/24 11:19 Const Orientation/consciousness: patient oriented x3 HENMT Other: TMs are dome-shaped a small air-fluid levels bilaterally. Nasal mucosa erythematous and edematous. Clear drainage noted. Maxillary sinus tenderness noted. Ears: hearing grossly normal bilaterally Neck Thyroid: Thyroid normal Lymphatic: no lymphadenopathy noted Resp Auscultation: clear to auscultation bilaterally Cardio Rate: regular rate Rhythm: regular rhythm Heart sounds: S1 normal heart sound present and S2 normal heart sound present GI Inspection: Yes normal to inspection Palpation (GI): Soft to palpation and Other GI palpation findings present (nontender, no cva tenderness) Auscultation: normoactive bowel sounds Rectal Exam - Female: deferred Skin General skin exam: no rashes or lesions noted Neuro General: patient oriented x3, gait normal and no focal motor deficits Results Reviewed Results Reviewed: Cardiac catheterization shows essentially normal coronary arteries. First diago nal had minimal luminal irregularities. Right heart catheterization showed mild pulmonary hypertension. Pulmonary function testing shows moderately severe restrictive pulmonary disorder. Coding Level of Care Code Est Pt Level 4 (53336) Complex EM visit Add On G2211 Diagnoses Acquired hypothyroidism E03.9 Hypothyroidism type: acquired Chronic maxillary sinusitis J32.0 Sinusitis location: maxillary Generalized anxiety disorder F41.1 Dyslipidemia E78.5 Assessment & Plan Assessment & Plan (1) Hypothyroidism: Code(s): E03.9 - Hypothyroidism, unspecified Category: Medical Qualifiers: Hypothyroidism type: acquired Qualified Code(s): E03.9 - Hypothyroidism, unspecified Plan: Continue current regimen. Labs ordered today. We will follow up pending test results (2) Chronic sinusitis: Code(s): J32.9 - Chronic sinusitis, unspecified Category: Medical Qualifiers: Sinusitis location: maxillary Qualified Code(s): J32.0 - Chronic maxillary sinusitis Plan: I will order her Zyrtec as she states she is not able to pick this up from the pharmacy. I will also start her on doxycycline for an acute bacterial sinusitis. We discussed risks and benefits and adverse effects of this medication. Follow up if anything worsens or changes. (3) Generalized anxiety disorder: Code(s): F41.1 - Generalized anxiety disorder Category: Medical Plan: We will try Lexapro. Reviewed risks and benefits and adverse effects of this medication. She will follow up in a month to be reassessed. Sooner if needed. (4) Dyslipidemia: Code(s): E78.5 - Hyperlipidemia, unspecified Category: Medical Plan: Lipids ordered. Orders: Orders Comprehensive [place]. Panel Fast Today E03.9 - Hypothyroidism, unspecified, E78.5 - Hyperlipidemia, unspecified, F41.1 - Generalized anxiety disorder, J32.0 - Chronic maxillary sinusitis Complete Blood Count Auto Diff Today E03.9 - Hypothyroidism, unspecified, E78.5 - Hyperlipidemia, unspecified, F41.1 - Generalized anxiety disorder, J32.0 - Chronic maxillary sinusitis TSH reflex Free T4 Today E03.9 - Hypothyroidism, unspecified, E78.5 - Hyperlipidemia, unspecified, F41.1 - Generalized anxiety disorder, J32.0 - Chronic maxillary sinusitis Lipid Panel Today E03.9 - Hypothyroidism, unspecified, E78.5 - Hyperlipidemia, unspecified, F41.1 - Generalized anxiety disorder, J32.0 - Chronic maxillary sinusitis Medications: New doxycycline hyclate 100 mg PO BID 20 tabs 0RF escitalopram oxalate (Lexapro) 5 mg PO DAILY 30 tabs 1RF Changed From cetirizine 10 mg PO DAILY PRN To cetirizine 10 mg PO DAILY 90 tabs 1RF
[2024-05-02 11:15] VITALS: BP 132/78; PULSE 67; TEMP 36.7; O2SAT 97
== END 2024-05-02 11:40 | disposition home or self-care (01) ==
LOC: HO.HMCFM 10:58
PROVIDERS: PCP Physician Assistant; Visit Provider Physician Assistant
DX: E03.9 Hypothyroidism, unspecified (principal); J32.0 Chronic maxillary sinusitis; F41.1 Generalized anxiety disorder; E78.5 Hyperlipidemia, unspecified

== ENCOUNTER → 2024-05-02 10:58 | Outpatient (BNVA) | payer OTHER, SELFPAY | PROVIDERS: PCP Physician Assistant; Visit Provider Physician Assistant | DX: E03.9 Hypothyroidism, unspecified (principal); J32.0 Chronic maxillary sinusitis; F41.1 Generalized anxiety disorder; E78.5 Hyperlipidemia, unspecified | CPT/HCPCS: 99212 ==

== ENCOUNTER 2024-06-18 10:51 | Outpatient (AMB) | payer OTHER, SELFPAY ==
--- NOTE | 2024-06-18 11:11 | MHC.OFFVIS ---
Vital Signs 06/18/24 11:12 Height 4 ft 11 in Weight 159 lb 13.362 oz BMI 32.3 BP 150/80 H Blood Pressure Location Lt brachial Position Sitting Pulse 77 Pulse Source Pulse Oximeter Pulse Oximetry (%) 94 Oxygen Delivery Method Nasal Cannula Oxygen Flow Rate 2 Intake Visit Reasons: COPD Intake Note: pt is here for follow up and states she has thick white phelgm and yellow nasal discharge, Entry Level Project Coordinator Required: No Allergies amoxicillin [Amoxicillin] Allergy (Unknown, Verified 06/18/24 11:40) UNKNOWN clavulanic acid [Augmentin] Allergy (Unknown, Verified 06/18/24 11:40) Unknown penicillin G [PENICILLIN G] Allergy (Unknown, Verified 06/18/24 11:40) UNKNOWN Medication List - Last Reconciled 06/18/24 by Heladio Gallego MD albuterol sulfate 90 mcg/actuation 2 puffs inhalation Q4H PRN albuterol sulfate 2.5 mg (3 mL) inhalation Q4-6H PRN ascorbate calcium (vitamin C) 500 mg PO DAILY Breo Ellipta 200-25 mcg/dose (fluticasone furoate-vilanterol) 1 ea PO DAILY NS cetirizine 10 mg PO DAILY diaper,brief,adult,disposable As directed BID escitalopram oxalate (Lexapro) 5 mg PO DAILY hydroxyzine HCl 25 mg PO BID PRN 30 days levothyroxine 75 mcg PO DAILY miscellaneous medical supply As directed dc-mh-npeqs-lutein-herbal 293 80 mcg-166.7 mcg-66.7 mg (Alive Premium Women's 50 Plus) tabs PO nystatin 5 mL PO DAILY PRN underpads (Bed Underpads) As directed nightly Do you need a note to return to daycare/school/sports/work: No HPI HPI COPD: Details: 63 YEARS OLD FEMALE IS HERE FOR HER ROUTINE 4 MONTHS FOLLOW-UP. SHE CONTINUES TO USE BREO EVERY DAY. AND ALBUTEROL SOLUTION IN THE NEBULIZER A FEW TIMES DAILY. BREO 200-25 MG DAILY. OVERALL SHE IS DOING WELL AND REMAINS STABLE. HOWEVER COMPLAINS OF THICK MUCUS SOMETIME HARD TO EXPECTORATES. BUT LUCKILY SHE HAS HAD NO ACTIVE INFECTION ALSO NO BOUTS OF THRUSH, LATELY. [facility] Medical History Abnormal myocardial perfusion study O2 dependent Major depressive disorder, recurrent, mild Generalized anxiety disorder Chronic sinusitis ILD (interstitial lung disease) Fatigue Cough Hypoxemia Sore throat and laryngitis Obstructive airway disease Restrictive airway disease Surgical History History of tubal ligation Family History Father No problems noted. Mother Atrial fibrillation Interstitial lung disease Brother Heart valve replaced Social History Housing: House Patient Tobacco Use Status: Never used Tobacco e-Cigarette/Vaping Use: Never Used service: No Current occupational status: disabled Current occupational exposures/hazards: No Cognitive needs: No Hearing needs: No Vision needs: Yes (cataracts) Review of Systems Const All systems reviewed & are unremarkable except as noted in HPI and below Eyes Reports no additional complaints ENT Reports nasal congestion (MILD INTERMITTENT) and Reports sore throat (QUITE FREQUENT, OFF AND ON AND MAINLY DUE TO THRUSH.) Card Denies chest pain, Denies leg edema and Reports dyspnea on exertion Resp Reports as per HPI and Reports dyspnea on exertion GI Reports no additional complaints Reports no additional complaints Musc Reports no additional complaints Skin/Breast Reports system reviewed and no additional complaints, except as documented Neuro Reports no additional complaints Psych Reports no additional complaints Physical Exam Vital Signs: Last Vital Signs Pulse 77 06/18/24 11:12 BP 150/80 H 06/18/24 11:12 Pulse Ox 94 06/18/24 11:12 Oxygen Delivery Method Nasal Cannula 06/18/24 11:12 Oxygen Flow Rate 2 06/18/24 11:12 BMI result Body Mass Index 32.3 Const General: comfortable, no acute distress, alert and awake Orientation/consciousness: patient oriented x3 HEENT Head: Yes normal to inspection General nose exam: No nasal polyps present and No nasal discharge present Face and sinus: Yes sinuses nontender Mouth: oropharynx normal (There is no redness or swelling.) Teeth and gingiva: edentulous (S/P MULTIPLE EXTRACTIONS.) Throat: Yes posterior oropharynx normal and Yes other (No evidence of any thrush at this time) Eyes General: appearance normal, both eyes and all related structures Neck Neck: Yes normal visual inspection, Yes no lymphadenopathy, Yes trachea midline and Yes no JVD Thyroid: Thyroid normal Chest Chest palpation & inspection: normal inspection of the chest, normal palpation of entire chest wall and no tenderness Resp Other: PERCUSSION NOTE RESONANT, BREATH SOUNDS ARE SLIGHTLY DISTANT WITH PROLONGED EXPIRATORY PHASE. BOTH LUNGS ARE CLEAR TODAY WITHOUT ANY WHEEZES OR RHONCHI.A FEW FINE CREPS, OVER THE RT BASE . SHE DOES GET COUGH WHEN SHE TAKES A DEEP BREATH. Cardio Palpation: normal PMI Rate: regular rate Rhythm: regular rhythm Heart sounds: no gallops and no murmurs GI Palpation (GI): Soft to palpation, nontender, No hepatosplenomegaly present and no masses Auscultation: normal bowel sounds Back/Spine/Pelvis Thoracic/Lumbar Spine: thoracic and lumbar spine normal to inspection Skin General skin exam: no rashes or lesions noted Neuro General: patient oriented x3 and no focal motor deficits Cranial nerves: Yes CN's II-XII intact bilaterally Extrem General: Yes normal to inspection, Yes no clubbing, cyanosis or edema and Yes no calf tenderness Psych Appearance: grossly normal and well kempt Speech and movement: Normal speech and movement present Assessment & Plan Assessment & Plan (1) ILD (interstitial lung disease): Comment: CHEST X-RAYS HAVE SHOWN INCREASED BRONCHOVASCULAR MARKINGS ESPECIALLY IN THE LOWER LOBES, SHE HAS PREVIOUS HISTORY OF ALVEOLITIS . CURRENT CT SCAN DOES SHOW, SOME IMPROVEMENT FROM BEFORE, BUT SHE STILL HAS SMALL LUNG VOLUME PULMONARY FUNCTION TEST HAS SHOWN SIGNIFICANT RESTRICTIVE PULMONARY DISORDER. Code(s): J84.9 - Interstitial pulmonary disease, unspecified Category: Medical Plan: ADVISED TO CONTINUE DOING DEEP BREATHING EXERCISES AT LEAST 3 TIMES A DAY. (2) Restrictive airway disease: Comment: Post pneumonitis in 2016 . She has had restrictive lung disease., moderately severe. It is remaining relatively stable. Code(s): J98.4 - Other disorders of lung Category: Medical Plan: EXPLAINED ABOUT THE REASON FOR RESTRICTIVE LUNG DISORDER. ADVISED TO TIE DOING DEEP BREATHING EXERCISES AT LEAST 3 TIMES A DAY. (3) Obstructive airway disease: Comment: Mild, but she has frequent cough, representing reactive airways CONTINUES TO HAVE BOUTS OF COUGH HAS USUAL. SHE IS ALSO PRONE TO HAVE ACUTE EXACERBATIONS. Code(s): J44.9 - Chronic obstructive pulmonary disease, unspecified Category: Medical Plan: BREO 200-251 INHALATION DAILY ALBUTEROL HFA 2 PUFFS Q 4-6 HOURS P.R.N. WHEN OUTDOORS ALBUTEROL SOLUTION 2.5 MG IN THE NEBULIZER Q 4-6 HOURS P.R.N. AT HOME (4) Cough: Comment: CHRONIC COUGH DUE TO COMBINATION OF ALLERGIC RHINITIS, COPD, MILD ,RESTRICTIVE PULMONARY DISORDER AND REACTIVE AIRWAYS . Code(s): R05 - Cough Category: Medical Qualifiers: Cough type: chronic Qualified Code(s): R05.3 - Chronic cough Plan: USE ALBUTEROL IN THE NEBULIZER P.R.N. FOR ANY PERSISTENT BOUTS OF COUGH. CETIRIZINE 10 MG ONCE A DAY FOR NASAL CONGESTION AND COUGH. MAY ALSO USE ROBITUSSIN 2 TSP T.I.D. ALSO MAY USE COUGH DROPS NEEDED. (5) Hypoxemia: Comment: PATIENT HAS CHRONIC HYPOXEMIA SINCE 2015 WHEN SHE HAD ACUTE INTERSTITIAL LUNG DISEASE. AFTER THE COVID INFECTION IN NOVEMBER 2021 , HER O2 REQUIREMENT HAS INCREASED AND SHE USES 3 L/MINUTE. SHE REMAINS DEPENDENT ON O2. Code(s): R09.02 - Hypoxemia Category: Medical Plan: OK TO USE O2 3 L/MINUTE CONTINUOUSLY . Coding Level of Care Code Est Pt Level 4 (28807) Diagnoses ILD (interstitial lung disease) J84.9 Restrictive airway disease J98.4 Obstructive airway disease J44.9 Chronic cough R05.3 Cough type: chronic Hypoxemia R09.02
[2024-06-18 11:12] VITALS: BP 150/80; PULSE 77; O2SAT 94; BMI 32.3
== END 2024-06-18 11:53 | disposition home or self-care (01) ==
PROVIDERS: PCP Physician Assistant; Visit Provider Internal Medicine
DX: J84.9 Interstitial pulmonary disease, unspecified (principal); J98.4 Other disorders of lung; J44.9 Chronic obstructive pulmonary disease, unspecified; R05.3 Chronic cough; R09.02 Hypoxemia
CPT/HCPCS: 99214

== ENCOUNTER → 2024-06-18 10:51 | Outpatient (BNVA) | payer OTHER, SELFPAY | PROVIDERS: PCP Physician Assistant; Visit Provider Internal Medicine | DX: J84.9 Interstitial pulmonary disease, unspecified (principal); J98.4 Other disorders of lung; J44.9 Chronic obstructive pulmonary disease, unspecified; R05.3 Chronic cough; R09.02 Hypoxemia | CPT/HCPCS: 99212 ==

== ENCOUNTER 2024-11-12 15:54 | Outpatient (AMB) | payer OTHER, SELFPAY ==
[2024-11-12 15:56] VITALS: BP 120/72; PULSE 74; O2SAT 96; BMI 31.7
--- NOTE | 2024-11-12 15:56 | MHC.OFFVIS ---
Vital Signs 11/12/24 15:56 Height 4 ft 11 in Weight 157 lb BMI 31.7 BP 120/72 Blood Pressure Location Lt brachial Position Sitting Pulse 74 Pulse Source Pulse Oximeter Pulse Oximetry (%) 96 Oxygen Delivery Method Nasal Cannula Oxygen Flow Rate 3 Intake Visit Reasons: Follow up ,miss a appointment Intake Note: pt is here for follow up and states she has a cough, that starts with a tickle in the throat, than coughing jag, and than issue with the way she holds her head when sleeping that bothers her. Glazier Structural Glass Required: No Allergies amoxicillin [Amoxicillin] Allergy (Unknown, Verified 11/12/24 16:02) UNKNOWN clavulanic acid [Augmentin] Allergy (Unknown, Verified 11/12/24 16:02) Unknown penicillin G [PENICILLIN G] Allergy (Unknown, Verified 11/12/24 16:02) UNKNOWN Medication List - Last Reconciled 11/12/24 by Heladio Gallego MD albuterol sulfate 2.5 mg (3 mL) inhalation Q4-6H PRN albuterol sulfate 90 mcg/actuation 2 puffs PO Q4H PRN ascorbate calcium (vitamin C) 500 mg PO DAILY Breo Ellipta 200-25 mcg/dose (fluticasone furoate-vilanterol) 1 ea PO DAILY NS cetirizine 10 mg PO DAILY diaper,brief,adult,disposable As directed BID hydroxyzine HCl 25 mg PO BID PRN 30 days levothyroxine 75 mcg PO DAILY miscellaneous medical supply As directed ic-vb-hggdc-lutein-herbal 293 80 mcg-166.7 mcg-66.7 mg (Alive Premium Women's 50 Plus) tabs PO nystatin 5 mL PO DAILY PRN underpads (Bed Underpads) As directed nightly Do you need a note to return to daycare/school/sports/work: No HPI HPI Follow up ,miss a appointment: Details: This 64 years old female is coming after 4 months for her routine follow-up. She has chronic respiratory insufficiency secondary to residual interstitial lung disease after she had COVID infection many years ago. Her breathing is relatively stable, as long as he uses Breo and also uses oxygen. Main complaint is ongoing chronic nasal congestion and postnasal drip which causes ticklish feeling in the throat and cough. She has had no recent respiratory infection. FORMERLY [facility] Medical History Abnormal myocardial perfusion study O2 dependent Major depressive disorder, recurrent, mild Generalized anxiety disorder Chronic sinusitis ILD (interstitial lung disease) Fatigue Cough Hypoxemia Sore throat and laryngitis Obstructive airway disease Restrictive airway disease Surgical History History of tubal ligation Family History Father No problems noted. Mother Atrial fibrillation Interstitial lung disease Brother Heart valve replaced Social History Housing: House Patient Tobacco Use Status: Never used Tobacco e-Cigarette/Vaping Use: Never Used service: No Current occupational status: disabled Current occupational exposures/hazards: No Cognitive needs: No Hearing needs: No Vision needs: Yes (cataracts) Review of Systems Const All systems reviewed & are unremarkable except as noted in HPI and below Eyes Reports no additional complaints ENT Reports nasal congestion (MILD INTERMITTENT) and Reports sore throat (QUITE FREQUENT, OFF AND ON AND MAINLY DUE TO THRUSH.) Card Denies chest pain, Denies leg edema and Reports dyspnea on exertion Resp Reports as per HPI and Reports dyspnea on exertion GI Reports no additional complaints Reports no additional complaints Musc Reports no additional complaints Skin/Breast Reports system reviewed and no additional complaints, except as documented Neuro Reports no additional complaints Psych Reports no additional complaints Physical Exam Vital Signs: Last Vital Signs Pulse 74 11/12/24 15:56 BP 120/72 11/12/24 15:56 Pulse Ox 96 11/12/24 15:56 Oxygen Delivery Method Nasal Cannula 11/12/24 15:56 Oxygen Flow Rate 3 11/12/24 15:56 BMI result Body Mass Index 31.7 Const General: comfortable, no acute distress, alert and awake Orientation/consciousness: patient oriented x3 HEENT Head: Yes normal to inspection General nose exam: No nasal polyps present and No nasal discharge present Face and sinus: Yes sinuses nontender Mouth: oropharynx normal (There is no redness or swelling.) Teeth and gingiva: edentulous (S/P MULTIPLE EXTRACTIONS.) Throat: Yes posterior oropharynx normal and Yes other (No evidence of any thrush at this time) Eyes General: appearance normal, both eyes and all related structures Neck Neck: Yes normal visual inspection, Yes no lymphadenopathy, Yes trachea midline and Yes no JVD Thyroid: Thyroid normal Chest Chest palpation & inspection: normal inspection of the chest, normal palpation of entire chest wall and no tenderness Resp Other: PERCUSSION NOTE RESONANT, BREATH SOUNDS ARE SLIGHTLY DISTANT WITH PROLONGED EXPIRATORY PHASE. BOTH LUNGS ARE CLEAR TODAY WITHOUT ANY WHEEZES OR RHONCHI.A FEW FINE CREPS, OVER THE RT BASE . SHE DOES GET COUGH WHEN SHE TAKES A DEEP BREATH. Cardio Palpation: normal PMI Rate: regular rate Rhythm: regular rhythm Heart sounds: no gallops and no murmurs GI Palpation (GI): Soft to palpation, nontender, No hepatosplenomegaly present and no masses Auscultation: normal bowel sounds Back/Spine/Pelvis Thoracic/Lumbar Spine: thoracic and lumbar spine normal to inspection Skin General skin exam: no rashes or lesions noted Neuro General: patient oriented x3 and no focal motor deficits Cranial nerves: Yes CN's II-XII intact bilaterally Extrem General: Yes normal to inspection, Yes no clubbing, cyanosis or edema and Yes no calf tenderness Psych Appearance: grossly normal and well kempt Speech and movement: Normal speech and movement present Assessment & Plan Assessment & Plan (1) Restrictive airway disease: Comment: Post pneumonitis in 2016 . She has had restrictive lung disease., moderately severe. It is remaining relatively stable. Code(s): J98.4 - Other disorders of lung Category: Medical Plan: Continue using O2 2 L/minute Try to do deep breathing exercises. (2) Obstructive airway disease: Comment: Mild, but she has frequent cough, representing reactive airways CONTINUES TO HAVE BOUTS OF COUGH USUAL. SHE IS ALSO PRONE TO HAVE ACUTE EXACERBATIONS. Code(s): J44.9 - Chronic obstructive pulmonary disease, unspecified Category: Medical Plan: Continue using Breo Ellipta 200-251 inhalation daily and use albuterol HFA 2 puffs Q 6 hours p.r.n. or use albuterol solution in the nebulizer Q 4-6 hours p.r.n. when at home (3) Hypoxemia: Comment: PATIENT HAS CHRONIC HYPOXEMIA SINCE 2015 WHEN SHE HAD ACUTE INTERSTITIAL LUNG DISEASE. AFTER THE COVID INFECTION IN NOVEMBER 2021 , HER O2 REQUIREMENT HAS INCREASED AND SHE USES 3 L/MINUTE. SHE REMAINS DEPENDENT ON O2. Code(s): R09.02 - Hypoxemia Category: Medical Plan: Continue to use O2 2 or 3 L/minute to keep O2 sat just above 90%. During the daytime when sitting and resting she can take a break from the oxygen (4) Cough: Comment: CHRONIC COUGH DUE TO COMBINATION OF ALLERGIC RHINITIS, COPD, MILD ,RESTRICTIVE PULMONARY DISORDER AND REACTIVE AIRWAYS. IT REMAINS UNCHANGED Code(s): R05 - Cough Category: Medical Qualifiers: Cough type: chronic Qualified Code(s): R05.3 - Chronic cough Plan: SHE IS ADVISED THAT SHE NEEDS TO USE ANTIHISTAMINIC PRN. MAY ALSO TRY TO USE FLONASE 2 SPRAY IN EACH NOSTRIL DAILY. (5) ILD (interstitial lung disease): Comment: CHEST X-RAYS HAVE SHOWN INCREASED BRONCHOVASCULAR MARKINGS ESPECIALLY IN THE LOWER LOBES, SHE HAS PREVIOUS HISTORY OF ALVEOLITIS . THIS IS THE CAUSE OF HER RESTRICTIVE LUNG DISEASE, AND HYPOXEMIA. Code(s): J84.9 - Interstitial pulmonary disease, unspecified Category: Medical Plan: CONTINUE USING OXYGEN 2 TREAT HYPOXEMIA DO DEEP BREATHING EXERCISES. 2 TO 3 TIMES A DAY Medications: New fluticasone propionate 50 mcg/actuation (Flonase Allergy Relief) administer into each nostril 2 sprays intranasal DAILY 30 days 16 grams 3RF ALLERGIC rHINITIS Coding Level of Care Code Est Pt Level 3 (94228) Diagnoses Restrictive airway disease J98.4 Obstructive airway disease J44.9 Hypoxemia R09.02 Chronic cough R05.3 Cough type: chronic ILD (interstitial lung disease) J84.9
--- OUTSIDE RECORDS SUMMARY | 2024-11-12 17:30 | XMS_ITS | Clinical Summary ---
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/04/2023 Social History Tobacco Use Types Packs/Day Years Used Date Smoking Tobacco: Never Passive Smoke Exposure: Never Smokeless Tobacco: Never Tobacco Cessation:Counseling Given: No Alcohol Use Standard Drinks/Week Comments Never 0 (1 standard drink = 0.6 oz pur e alcohol) Comments Unknown Sex and Gender Information Value Date Recorded Sex Assigned at Female 06/07/2022 2:39 AM EST Legal Sex Female 2:39 AM EST Gender Identity Female 06/07/2022 2:39 AM EST Sexual Orientation Choose not to disclose 2021 10:18 AM EDT Last Filed Vital Signs Vital Sign Reading Time Taken Comments Blood Pressure 134/80 06/22/2022 11:04 AM EST Pulse 72 06/08/2022 1:06 PM EST Temperature - - Respiratory Rate - - Oxygen Saturation - - Inhaled Oxygen Concentration - - Weight - - Height - - Body Mass Index - - Plan of Treatment Health Maintenance Due Date Last Done Comments CT Colonography 1959 Colonoscopy 1959 Colorectal Cancer Screening 1959 Dental Oral Exam 1959 Dental Prophylaxis 1959 Dental X-Ray: Bitewings 1959 Dental X-Ray: Full Mouth 1959 Depression Screening 1959 FIT DNA/Cologuard 1959 FIT 1959 FOBT 1959 SDOH Screening 1959 Sigmoidoscopy 1959 Alcohol/Substance Use Screening 1971 Hepatitis C Screening 1977 Pap Smear 1980 Cervical Cancer Screening 1989 HPV/Cotest 1989 Mammogram 1999 Pneumococcal Vaccine: 50+ Years (1 of 1 - PCV) 2009 Zoster Vaccines (1 of 2) 2009 Tobacco Screening 07/19/2023 07/19/2022 COVID-19 Vaccine (3 - 2023-2 5 season) 2024 11/13/2020, 10/23/2020 Influenza Vaccine (Season Ended) 2025 02/12/2015, 03/30/2013 DTaP/Tdap/Td Vaccines (2 - T d or Tdap) 01/15/2029 01/15/2019 RSV Patients and Patients Aged 60 years or older (1 - 1-dose 75+ series) 2034 HIB Vaccines Aged Out No longer eligi ble based on patient's age to complete this topic HPV Vaccines Aged Out No longer eligi ble based on patient's age to complete this topic Hepatitis A Vaccines Aged Out No long er eligible based on patient's age to complete this topic Hepatitis B Vaccines Aged Out No long er eligible based on patient's age to complete this topic IPV Vaccines Aged Out No longer eligi ble based on patient's age to complete this topic Meningococcal B Vaccine Aged Out No l onger eligible based on patient's age to complete this topic Meningococcal Vaccine Aged Out No beatrice fahad eligible based on patient's age to complete this topic RSV under 20 months Aged Out No longe r eligible based on patient's age to complete this topic Rotavirus Vaccines Aged Out No longer eligible based on patient's age to complete this topic Insurance DENTAL - [facility]
== END 2024-11-12 16:15 | disposition home or self-care (01) ==
LOC: HO.HPS 15:54
PROVIDERS: PCP Physician Assistant; Visit Provider Internal Medicine
DX: J98.4 Other disorders of lung (principal); J44.9 Chronic obstructive pulmonary disease, unspecified; R09.02 Hypoxemia; R05.3 Chronic cough; J84.9 Interstitial pulmonary disease, unspecified
CPT/HCPCS: 99213

== ENCOUNTER → 2024-11-12 15:54 | Outpatient (BNVA) | payer OTHER, SELFPAY | PROVIDERS: PCP Physician Assistant; Visit Provider Internal Medicine | DX: J98.4 Other disorders of lung (principal); J44.9 Chronic obstructive pulmonary disease, unspecified; R09.02 Hypoxemia; R05.3 Chronic cough; J84.9 Interstitial pulmonary disease, unspecified; Z99.81 Dependence on supplemental oxygen | CPT/HCPCS: 99212 ==

== ENCOUNTER 2025-01-31 11:50 | Outpatient (REF) | payer OTHER, SELFPAY ==
--- NOTE | ~2025-01-31 | MM_ITS ---
EXAMINATION: MM SCREENING DIGITAL BREAST TOMOSYNTHESIS, BILATERAL CLINICAL INFORMATION: Screening. Asymptomatic. COMPARISON: Comparison made to multiple prior, most recent October 21, 2023, and most remote August 09, 2017. TECHNIQUE: Digital breast tomosynthesis is performed in mediolateral oblique and craniocaudal views along with computer-aided detection (CAD). FINDINGS: BREAST COMPOSITION: There are scattered areas of fibroglandular density (ACR BI-RADS breast composition Category b). BILATERAL BREASTS: No significant masses, suspicious calcifications or other abnormalities are seen in either breast. MM/MM tomosynthesis screening BI IMPRESSION: BILATERAL BREASTS: Negative, no mammographic evidence of malignancy. Normal interval follow-up is recommended in 12 months. ASSESSMENT: BI-RADS 1 - Negative RECOMMENDATION: Routine annual mammography screening. FOLLOW-UP: 1 year F/U This examination should not preclude the clinical evaluation of a suspicious palpable abnormality. This patient's information was entered into a reminder system with a target due date for their next mammogram. Electronically signed by: Paradise Montiel MD 02/02/2025 06:01 PM EDT
--- OUTSIDE RECORDS SUMMARY | 2025-01-31 12:59 | XMS_ITS | Clinical Summary ---
Author Organization [employer] Address [address] [place] [address] [address] [place] [address] Care Team Providers Care Director Of Corporate Sales Name Role Phone Unavailable Primary Care Provider [...] 5 season) 2024 11/13/2020, 10/23/2020 Influenza Vaccine (#1) 2025 5, 03/30/2013 DTaP/Tdap/Td Vaccines (2 - T d [...] complete this topic Insurance DENTAL - [facility]
--- OUTSIDE RECORDS SUMMARY | 2025-01-31 12:59 | XMS_ITS | Encounter Summary ---
Author Organization [facility] Address [address] [place] [address] Phone Care Team Providers Care Wastewater Project Engineer Name Role Phone Verónica Pete NP Primary Care Provider [phone] Yakov Carnes MD Unavailable [phone] Reason for Referral * Outpatient Procedure - Closed Specialty Diagnoses / Procedures Referred By Contac t Referred To Contact Diagnoses Dyspnea on exertion Other forms of dyspnea Procedures Adult Echo TTE Verónica Pete NP Phone: tel: fax: Referral ID Status Reason Start Date Expiration Date Visits Re quested Visits Authorized [id number] Closed 06/12/2019 06/11/2020 1 1 Encounter Details Date Type Department Care Team (Latest Contact Info) Description 06/12/2019 Transcribe Orders Virtual Department [address] [place] [address] Verónica Pete NP [address] [place] [address] Dyspnea on exertion (Primary Dx); Other forms of dyspnea Social History Tobacco Use Types Packs/Day Years Used Date Smoking Tobacco: Never Smokeless Tobacco: Never Comments Unknown Sex and Gender Information Value Date Recorded Sex Assigned at Not on file Legal Sex Female 9:49 PM EDT Gender Identity Not on file Sexual Orientation Not on file documented as of this encounter Plan of Treatment Not on file documented as of this encounter Results * TTE COMPREHENSIVE (07/20/2019 12:00 PM EST) Body Surface Area 1.6 m2 Height 149 m Weight 67 kg Systolic BP 123 mmHg Diastolic BP 68 mmHg Left Atrium Dimension Anterior-Posterior 33 15 - 40 mm Aortic Valve Mean Gradient 3.00 mmHg Aortic Valve Time Velocity Integral 249.00 mm Aortic Valve Peak Velocity 125.0 cm/s Aortic Valve Peak Gradient 6.00 mmHg Aortic Sinus Diameter 22 mm Ascending Aorta Diameter 29 mm Inferior Vena Cava Diameter 15 0.0 - 21 mm Inferior Vena Cava Diameter 5 0.0 - 21 mm Interventricular Septum Thickness 11 mm Left Ventricle Internal Diameter End Diastole 31 37 - 52 mm Left Ventricle Internal Diameter End Systole 22 22 - 35 mm Left Ventricular Outflow Tract Diameter 18.0 mm LVOT VTI REST 235.00 mm Left Ventricular Outflow Tract Velocity 1.2 m/s Left Ventricular Outflow Tract Gradient at Rest 6.00 mmHg Left Ventricular Posterior Wall Thickness 10 mm Ejection Fraction 55 50 - 75 Percent Mitral Valve A Wave Speed 58.5 cm/s Mitral Valve E Wave Speed 54.2 cm/s Right Ventricle Basal Diameter 27.30 25 - 41 mm Tricuspid Valve Peak Velocity 2.4 m/s Raw LV EF% 50 % Left Atrial Volume 36 mL Left Atrial Volume Index 22.50 mL/m2 Right Ventricle Peak Systolic Pressure 26 mmHg Right Ventricle TAPSE 19 mm Right Atrium Pressure Estimated 3 mmHg Right Ventricle to Right Atrium Pressure Gradient 23 mmHg Right Ventricle Pulse Doppler S Wave 7.1 cm/s Aortic Valve Sinus Index 1 14 19 - 27 mm Ascending Aorta Diameter 18 mm Aortic Sinus Index 14 mm Ascending Aorta Index 18 mm Anatomical Region Laterality Modality Heart Ultrasound Narrative 07/20/2019 12:56 PM EST The predominant rhythm during the study was sinus. Left ventricular systolic function is normal. There are no segmental left ventricular wall motion abnormalities noted. The estimated ejection fraction is 55% (Normal 50-75%). Trace mitral regurgitation Normal pulmonary pressure No prior studies for comparison Left Ventricle The left ventricular cavity size and wall thickness are normal. Left ventricular systolic function is normal. There are no segmental left ventricular wall motion abnormalities noted. The estimated ejection fraction is 55% (Normal 50-75%). The left ventricular ejection fraction was measured by the single dimension method. Left ventricular diastolic function appears within normal limits for age. There is no evidence of left ventricular thrombus. Right Ventricle The right ventricular size is normal. The right ventricular systolic function is normal. Left Atrium The left atrium is normal in size. The LA volume is 36 mL. The LA volume index is 22.5 mL/m2 (normal indexed value is 16-34 mL/m2). The pulmonary venous flow profiles are normal. Right Atrium The right atrium is normal in size. Mitral Valve The mitral valve appears normal. E/A ratio is 0.9. E/E' avg is 5.9. Lat E' velocity is 11.2cm/s. Med E' velocity is 7.18cm/s. There is no evidence of mitral stenosis. There is trace mitral regurgitation detected by spectral and color Doppler. Tricuspid Valve The tricuspid valve appears normal. There is no evidence of tricuspid stenosis. There is evidence of tricuspid regurgitation by color and spectral Doppler. Peak TR is 2.4m/s. Normal pulmonary pressure. The RV systolic pressure was estimated from the peak TV regurgitant velocity. The estimated RV systolic pressure is 26 mmHg assuming a right atrial pressure of 3 mmHg. Aortic Valve The aortic valve appears normal. The aortic valve is tricuspid. There is no evidence of valvular aortic stenosis. The peak aortic valve gradient is 6 mmHg. The mean aortic gradient is 3 mmHg. There is no evidence of aortic regurgitation by color and spectral Doppler. The visualized portions of the thoracic aorta appear normal. Pulmonic Valve The pulmonary valve appears normal. There is no evidence of pulmonic stenosis. There is evidence of trace pulmonary regurgitation by color and spectral Doppler. Pericardium There is no evidence of pericardial effusion. Interatrial Septum There is no evidence of an atrial septal defect. General Findings The image quality was good (2). Technique(s) used in the evaluation: Color flow Doppler and Spectral Doppler. The predominant rhythm during the study was sinus. Comparison Findings No prior studies for comparison. us Verónica Pete NP CV ECHO ORDERABLES Final Result documented in this encounter Visit Diagnoses Diagnosis Dyspnea on exertion- Primary Other dyspnea and respiratory abnormality Other forms of dyspnea Dyspnea on exertion Other dyspnea and respiratory abnormality Other forms of dyspnea documented in this encounter Additional Health Concerns Infection Onset Date Last Indicated Resolved Time CoV-Risk 08/29/2020 09/01/2020 09/08/2020 1:24 AM EDT CoV-Risk 03/16/2021 03/16/2021 03/26/2021 1:23 AM EDT documented as of this encounter Care Teams Wastewater Project Engineer Relationship Specialty Start Date End Date Verónica Pete NP PCP - General 03/24/17 Yakov Carnes MD [address] [place] [id number] [email or web address] Primary Oncologist Hematology and Oncology 09/07/17 documented as of this encounter Additional Source Comments The information contained in this document represents components of the legal health record. It is not the complete legal health record.[facility]
--- OUTSIDE RECORDS SUMMARY | 2025-01-31 12:59 | XMS_ITS | Clinical Summary ---
Author Organization [facility] Address [address] [place] [phone] Phone Care Team Providers Care Preparation Plant Supervisor Name Role Phone Verónica Pete NP Primary Care Provider [phone] Yakov Carnes MD Unavailable Allergies Active Allergy Reactions Criticality Noted Date Comments Amoxicillin-Pot Clavulanate 09/09/19 18 Penicillin Unknown 11/10/2016 Medications fluticasone furoate-vilantero L (BREO ELLIPTA) 200-25 mcg/dose inhaler Inhale 1 puff into the lungs daily. Active prednisoLONE (MILLIPRED) 5 mg Tab Orally Once daily Active loratadine (CLARITIN) 5 mg/5 mL syrup 10 ml Orally Once a day Active levothyroxine (SYNTHROID, LEVOTHROID) 75 MCG tablet Take 1 tablet by mouth daily. Active LORazepam (ATIVAN) 0.5 MG tabletIndications :PRN Take 0.5 mg by mouth every 6 (six) hours as needed for anxiety. Indications: PRN Active therapeutic multivitamin tablet Take 1 tablet by mouth daily. Active cetirizine (ZYRTEC) 10 MG tablet Take 10 mg by mouth daily. 2 Active chlorhexidine (PERIDEX) 0.12 % solution SWISH 1 CAPFUL IN MOUTH FOR 2 MINUTES THEN SPIT THREE TIMES DAILY AFTER A MEAL 2 Active nystatin (MYCOSTATIN) 100,000 units/mL suspension TAKE 5 ML BY MOUTH EVERY DAY NEEDED 2 Active Active Problems Patient Care Coordination No te Formatting of this note migh t be different from the original. Height 151cm no shoes 11/09/21 Problem Noted Date Diagnosed Date Leukocytosis 05/25/2017 Immunizations Immunization Administration Dates Next Due INFLUENZA, SPLIT VIRUS, TRIVALENT PF 03/30/2013 Influenza Quadrivalent Preservative Free IM 02/2015 Tdap 01/15/2019 Social History Tobacco Use Types Packs/Day Years Used Date Smoking Tobacco: Never Smokeless Tobacco: Never Alcohol Use Standard Drinks/Week Comments Never 0 (1 standard drink = 0.6 oz pur e alcohol) Education Answer Date Recorded Are you interested in more education? Not on martin e 10/01/2022 Are you concerned about learning? Not on file 10/01/2022 No 10/01/2022 No 10/01/2022 Digital Access Answer Date Recorded No 10/30/2022 No 10/30/2022 Reliable internet access at home? Not on file 10/30/2022 Device with a working camera? Not on file Comments Unknown Sex and Gender Information Value Date Recorded Sex Assigned at Not on file Legal Sex Female 9:49 PM EDT Gender Identity Not on file Sexual Orientation Not on file Last Filed Vital Signs Vital Sign Reading Time Taken Comments Blood Pressure 114/72 11/09/2021 3:17 PM EDT Pulse 79 11/09/2021 3:17 PM EDT Temperature 36.6 C (97.8 F) 11/09/2021 3:17 PM EDT Respiratory Rate 18 03/16/2021 10:17 PM EDT Oxygen Saturation 95% 11/09/2021 3:17 PM EDT Inhaled Oxygen Concentration - - Weight 67.6 kg (149 lb 1.6 oz) 11/09/2021 3:17 P M EDT Height 151 cm (4' 11.45 ) 11/09/2021 3:17 PM EDT Body Mass Index 29.66 11/09/2021 3:17 PM EDT Plan of Treatment Health Maintenance Due Date Last Done Comments LIPID PANEL 1959 TSH LEVEL 1959 DEPRESSION SCREENING 1971 HEPATITIS C SCREENING 1977 HIV ONE-TIME SCREENING (18-6 5 YEARS) 1977 MAMMOGRAM 1999 COLOGUARD 2004 COLONOSCOPY 2004 COLORECTAL CANCER SCREENING 2004 FIT TEST 2004 FOBT 2004 SIGMOIDOSCOPY 2004 VIRTUAL COLONOSCOPY 2004 PNEUMOCOCCAL VACCINES (50+ years) (1 of 1 - PCV) 2009 ZOSTER VACCINES (1 of 2) 2009 COVID-19 VACCINE (3 - 2023-2 5 season) 2024 11/13/2020, 10/23/2020 OSTEOPOROSIS SCREENING INITI AL (ONE-TIME) 2024 Adult Td,Tdap Booster 01/15/2029 01/15/2019 RSV VACCINE (1 - 1-dose 75+ series) 2034 SMOKING STATUS SCREENING (On ce After 26 Yrs) Completed 11/09/2021 HEPATITIS A VACCINES Aged Out No long er eligible based on patient's age to complete this topic HIB VACCINES Aged Out No longer eligi ble based on patient's age to complete this topic MENINGOCOCCAL VACCINES (ACWY) Aged Out No longer eligible based on patient's age to complete this topic MENINGOCOCCAL VACCINES (B) Aged Out N o longer eligible based on patient's age to complete this topic Medical Devices Not on file Insurance [facility] MEDICARE REPLACEMENT JESSICA BING[place]AM [id number] * Guarantor: Cayla Ramos Account Type Relation to Patient Date of Phone Billing Address Personal/Family Self 1960 [address] [place] [id number] [facility] MEDICARE REPLACEMENT [facility] MEDICARE REPLACEMENT [facility] MEDICARE REPLACEMENT [facility] MEDICARE REPLACEMENT [facility] MEDICARE REPLACEMENT [id number] [facility] [place] [facility] MEDICARE [facility]PLACEMENT [facility] MEDICARE REPLACEMENT [facility] MEDICARE REPLACEMENT Care Teams Preparation Plant Supervisor Relationship Specialty Start Date End Date Verónica Pete NP PCP - General 03/24/17 Yakov Carnes MD [address] [place] [phone] Primary Oncologist Hematology and Oncology 09/07/17 Additional Source Comments The information contained in this document represents components of the legal health record. It is not the complete legal health record.[facility]
--- OUTSIDE RECORDS SUMMARY | 2025-01-31 13:00 | XMS_ITS | Encounter Summary ---
Author Organization [facility] Address [address] [place] [address] Phone Care Team Providers Care Apprentice Name Role Phone Verónica Pete NP Primary Care Provider [phone] Yakov Carnes MD Unavailable [phone] Encounter Details Date Type Department Care Team (Latest Contact Info) Description 08/29/2020 Transcribe Orders Virtual Department [address] [place] [phone] Jennifer Greer MD [address] [place] [phone] [email or web address] Sore throat (Primary Dx) Social History Tobacco Use Types Packs/Day Years [...] documented as of this encounter Results * COVID-19 PCR Order (09/01/2020 1:29 PM EDT) COVID Testing Status Specimen received in analyzing lab. Results should be available within 24 to 48 hrs. [facility] Symptomatic? YES [facility] 09/01/2020 1:29 PM EDT 09/01/2020 5:56 PM EDT Jennifer Greer MD BODY FLUIDS AND STOOLS ORDER WILLIAN Final Result [facility] [address] [place] [address] [facility] [address] [place] [phone] documented in this encounter Visit Diagnoses Diagnosis Sore throat- Primary Acute pharyngitis documented in this encounter Additional Health Concerns Infection Onset Date Last Indicated Resolved Time CoV-Risk 08/29/2020 09/01/2020 09/08/2020 1:24 AM EDT CoV-Risk 03/16/2021 03/16/2021 03/26/2021 1:23 AM EDT documented as of this encounter Care Teams Apprentice Relationship Specialty Start Date End Date Verónica Pete NP PCP - General 03/24/17 Yakov Carnes MD [address] [place] [address] Primary Oncologist Hematology and Oncology 09/07/17 documented as of this encounter Additional Source Comments The information contained in this document represents components of the legal health record. It is not the complete legal health record.[facility]
== END 2025-01-31 11:51 | disposition home or self-care (01) ==
LOC: HO.MAMMO 11:50
PROVIDERS: PCP Physician Assistant; Visit Provider Physician Assistant
DX: Z12.31 Encounter for screening mammogram for malignant neoplasm of breast (principal)
CPT/HCPCS: 77063; 77067

== ENCOUNTER → 2025-01-31 12:00 | Outpatient (BNV) | payer OTHER, SELFPAY | PROVIDERS: PCP Physician Assistant; Visit Provider Radiology Body Imaging | DX: Z12.31 Encounter for screening mammogram for malignant neoplasm of breast (principal) | CPT/HCPCS: 77063; 77067 ==

== ENCOUNTER 2025-03-21 10:20 | Outpatient (AMB) | payer OTHER, SELFPAY ==
[2025-03-21 10:28] VITALS: BP 130/74; PULSE 76; O2SAT 95; BMI 31.4
--- NOTE | 2025-03-21 10:28 | MHC.OFFVIS ---
Vital Signs 03/21/25 10:28 Height 4 ft 11 in Weight 155 lb 6.814 oz BMI 31.4 BP 130/74 Blood Pressure Location Lt brachial Position Sitting Pulse 76 Pulse Source Pulse Oximeter Pulse Oximetry (%) 95 Oxygen Delivery Method Nasal Cannula Oxygen Flow Rate 2 Intake Visit Reasons: COPD Intake Note: pt is here for follow up and states she has not been feeling well for 2 weeks, she is tired more which is concerning to family, and feels like her lungs go into spasm when she is doing things. coughing with phlegm no sure of color. Diagnostic Assistant Required: No Engineer Systems: Engineer Systems offered & declined Allergies amoxicillin (Amoxicillin) Allergy (Unknown, Verified 03/21/25 10:50) UNKNOWN clavulanic acid (Augmentin) Allergy (Unknown, Verified 03/21/25 10:50) Unknown penicillin G (PENICILLIN G) Allergy (Unknown, Verified 03/21/25 10:50) UNKNOWN Medication List - Last Reconciled 03/21/25 by Heladio Gallego MD albuterol sulfate 2.5 mg (3 mL) inhalation Q4-6H PRN albuterol sulfate 90 mcg/actuation 2 puffs PO Q4H PRN ascorbate calcium (vitamin C) 500 mg PO DAILY Breo Ellipta 200-25 mcg/dose (fluticasone furoate-vilanterol) 1 ea PO DAILY NS cetirizine 10 mg PO DAILY diaper,brief,adult,disposable As directed BID fluticasone propionate 50 mcg/actuation (Flonase Allergy Relief) 2 sprays intranasal DAILY 30 days hydroxyzine HCl 25 mg PO BID PRN 30 days levothyroxine 75 mcg PO DAILY miscellaneous medical supply As directed bf-wp-cxmmk-lutein-herbal 293 80 mcg-166.7 mcg-66.7 mg (Alive Premium Women's 50 Plus) tabs PO nystatin 5 mL PO DAILY PRN underpads (Bed Underpads) As directed nightly Do you need a note to return to daycare/school/sports/work: No HPI HPI COPD: Details: ALEXIS IS 64 YEARS OLD FEMALE WITH HISTORY OF CHRONIC COUGH AND SHORTNESS OF BREATH RELATED TO RESTRICTIVE PULMONARY DISORDER WELL REACTIVE AIRWAYS. SHE ALSO HAS CHRONIC RESPIRATORY INSUFFICIENCY WITH HYPOXEMIA AND NEEDS TO USE OXYGEN. SHE IS HERE FOR 4 MONTHS FOLLOW-UP. REMAINS TIRED AND GETS SHORT OF BREATH ON ANY PHYSICAL EXERTION. YET SHE DOES TAKE CARE OF HER GRANDSON. SHE HAS HAD NO ACUTE RESPIRATORY INFECTION IN THE LAST 4 MONTHS. SHE DOES GET FREQUENT BOUTS OF IRRITATION IN THE THROAT WHICH SHE THINKS IS DUE TO ORAL CANDIDIASIS AND USES NYSTATIN SWISHES ONCE IN A WHILE. SHE HAS ONGOING NASAL CONGESTION WITH SOME POSTNASAL DISCHARGE. [facility] Medical History Abnormal myocardial perfusion study O2 dependent Major depressive disorder, recurrent, mild Generalized anxiety disorder Chronic sinusitis ILD (interstitial lung disease) Fatigue Cough Hypoxemia Sore throat and laryngitis Obstructive airway disease Restrictive airway disease Surgical History History of tubal ligation Family History Father No problems noted. Mother Atrial fibrillation Interstitial lung disease Brother Heart valve replaced Social History Housing: House Patient Tobacco Use Status: Never used Tobacco e-Cigarette/Vaping Use: Never Used service: No Current occupational status: disabled Current occupational exposures/hazards: No Cognitive needs: No Hearing needs: No Vision needs: Yes (cataracts) Review of Systems Const All systems reviewed & are unremarkable except as noted in HPI and below Eyes Reports no additional complaints ENT Reports nasal congestion (MILD INTERMITTENT) and Reports sore throat (QUITE FREQUENT, OFF AND ON AND MAINLY DUE TO THRUSH.) Card Denies chest pain, Denies leg edema and Reports dyspnea on exertion Resp Reports as per HPI and Reports dyspnea on exertion GI Reports no additional complaints Reports no additional complaints Musc Reports no additional complaints Skin/Breast Reports system reviewed and no additional complaints, except as documented Neuro Reports no additional complaints Psych Reports no additional complaints Physical Exam Vital Signs: Last Vital Signs Pulse 76 03/21/25 10:28 BP 130/74 03/21/25 10:28 Pulse Ox 95 03/21/25 10:28 Oxygen Delivery Method Nasal Cannula 03/21/25 10:28 Oxygen Flow Rate 2 03/21/25 10:28 BMI result Body Mass Index 31.4 Const General: comfortable, no acute distress, alert and awake Orientation/consciousness: patient oriented x3 HEENT Head: Yes normal to inspection General nose exam: No nasal polyps present and No nasal discharge present Face and sinus: Yes sinuses nontender Mouth: oropharynx normal (There is no redness or swelling.) Teeth and gingiva: edentulous (S/P MULTIPLE EXTRACTIONS.) Throat: Yes posterior oropharynx normal and Yes other (No evidence of any thrush at this time) Eyes General: appearance normal, both eyes and all related structures Neck Neck: Yes normal visual inspection, Yes no lymphadenopathy, Yes trachea midline and Yes no JVD Thyroid: Thyroid normal Chest Chest palpation & inspection: normal inspection of the chest, normal palpation of entire chest wall and no tenderness Resp Other: PERCUSSION NOTE RESONANT, BREATH SOUNDS ARE SLIGHTLY DISTANT WITH PROLONGED EXPIRATORY PHASE. BOTH LUNGS ARE CLEAR TODAY WITHOUT ANY WHEEZES OR RHONCHI.A FEW FINE CREPS, OVER THE RT BASE . SHE DOES GET COUGH WHEN SHE TAKES A DEEP BREATH. Cardio Palpation: normal PMI Rate: regular rate Rhythm: regular rhythm Heart sounds: no gallops and no murmurs GI Palpation (GI): Soft to palpation, nontender, No hepatosplenomegaly present and no masses Auscultation: normal bowel sounds Back/Spine/Pelvis Thoracic/Lumbar Spine: thoracic and lumbar spine normal to inspection Skin General skin exam: no rashes or lesions noted Neuro General: patient oriented x3 and no focal motor deficits Cranial nerves: Yes CN's II-XII intact bilaterally Extrem General: Yes normal to inspection, Yes no clubbing, cyanosis or edema and Yes no calf tenderness Psych Appearance: grossly normal and well kempt Speech and movement: Normal speech and movement present Assessment & Plan Assessment & Plan (1) Restrictive airway disease: Comment: Post pneumonitis in 2016 . She has been left with some residual interstitial lung disease . As per pulmonary function test she has significant degree of restrictive lung disease.. It is remaining relatively stable. Code(s): J98.4 - Other disorders of lung Category: Medical Plan: She is advised to do deep breathing exercises with the incentive spirometer and she does do about 3 times a day (2) Obstructive airway disease: Comment: Mild, but she has frequent cough, representing reactive airways CONTINUES TO HAVE BOUTS OF COUGH USUAL. SHE IS ALSO PRONE TO HAVE ACUTE EXACERBATIONS. Code(s): J44.9 - Chronic obstructive pulmonary disease, unspecified Category: Medical Plan: Continue to use Breo 200-25 just 1 inhalation daily. Albuterol HFA 2 puffs Q 4-6 hours only p.r.n. (3) Hypoxemia: Comment: PATIENT HAS CHRONIC HYPOXEMIA SINCE 2015 WHEN SHE HAD ACUTE INTERSTITIAL LUNG DISEASE. AFTER THE COVID INFECTION IN NOVEMBER 2021 , HER O2 REQUIREMENT HAS INCREASED AND SHE USES 3 L/MINUTE. SHE REMAINS DEPENDENT ON O2. Code(s): R09.02 - Hypoxemia Category: Medical Plan: Okay to continue O2 3 L/minute 24 hours a day (4) Cough: Comment: CHRONIC COUGH DUE TO COMBINATION OF ALLERGIC RHINITIS, COPD (MILD ) ,RESTRICTIVE PULMONARY DISORDER AND REACTIVE AIRWAYS. IT REMAINS UNCHANGED Code(s): R05 - Cough Category: Medical Qualifiers: Cough type: chronic Qualified Code(s): R05.3 - Chronic cough Plan: Advised to use cough drops or Robitussin with DM only p.r.n. Patient was educated that her cough is not going to clear completely (5) ILD (interstitial lung disease): Comment: CHEST X-RAYS HAVE SHOWN INCREASED BRONCHOVASCULAR MARKINGS ESPECIALLY IN THE LOWER LOBES, SHE HAS PREVIOUS HISTORY OF ALVEOLITIS . THIS IS THE CAUSE OF HER RESTRICTIVE LUNG DISEASE, AND HYPOXEMIA. Code(s): J84.9 - Interstitial pulmonary disease, unspecified Category: Medical Plan: Once again I explained to the patient and her daughter about the nature of her interstitial lung disease. Coding Level of Care Code Est Pt Level 4 (98787) Diagnoses Restrictive airway disease J98.4 Obstructive airway disease J44.9 Hypoxemia R09.02 Chronic cough R05.3 Cough type: chronic ILD (interstitial lung disease) J84.9
--- OUTSIDE RECORDS SUMMARY | 2025-03-21 12:47 | XMS_ITS | Encounter Summary ---
Author Organization [facility] Address [address] [place] [id number] Phone Care Team Providers Care Bookkeeping Manager Name Role Phone Verónica Pete NP Primary Care Provider [phone] Yakov Carnes MD Unavailable [phone] Encounter Details Date Type Department Care Team (Latest Contact Info) Description 08/29/2020 Transcribe Orders Virtual Department [address] [place] [phone] Jennifer Greer MD [address] [place] [address] [phone] [email or web address] Sore throat (Primary Dx) Social History [...] be available within 24 to 48 hrs. [facility] Symptomatic? YES [facility] 09/01/2020 1:29 PM EDT 09/01/2020 5:56 PM EDT Jennifer Greer MD BODY FLUIDS AND STOOLS ORDER WILLIAN Final Result [facility] [address] [place] [address] [facility] [address] [place] [phone] documented in this encounter Visit Diagnoses Diagnosis Sore throat- Primary Acute pharyngitis documented in this encounter Additional Health Concerns Infection Onset Date Last Indicated Resolved Time CoV-Risk 08/29/2020 09/01/2020 09/08/2020 1:24 AM EDT CoV-Risk 03/16/2021 03/16/2021 03/26/2021 1:23 AM EDT documented as of this encounter Care Teams Bookkeeping Manager Relationship Specialty Start Date End Date Verónica Pete NP PCP - General 03/24/17 Yakov Carnes MD [address] [place] [address] Primary Oncologist Hematology and Oncology 09/07/17 documented as of this encounter Additional Source Comments The information contained in this document represents components of the legal health record. It is not the complete legal health record.[facility]
--- OUTSIDE RECORDS SUMMARY | 2025-03-21 12:47 | XMS_ITS | Encounter Summary ---
Author Organization [facility] Address [address] [place] [phone] Phone Care Team Providers Care Control And Recovery Combat Rescue Name Role Phone Verónica Pete NP Primary Care Provider [phone] Yakov Carnes MD Unavailable [phone] Reason for Referral * Outpatient Procedure - Closed Specialty Diagnoses / Procedures Referred By Contac t Referred To Contact Diagnoses Dyspnea on exertion Other forms of dyspnea Procedures Adult Echo TTE Verónica Pete NP Phone: tel: fax: Referral ID Status Reason Start Date Expiration Date Visits Re quested Visits Authorized [id number] Closed 06/12/2019 06/11/2020 1 1 Encounter Details Date Type Department Care Team (Latest Contact Info) Description 06/12/2019 Transcribe Orders Virtual Department [address] [place] [address] Verónica Pete NP [address] [place] [address] Dyspnea on exertion (Primary Dx); Other forms [...] documented as of this encounter Care Teams Control And Recovery Combat Rescue Relationship Specialty Start Date End Date Verónica Pete NP PCP - General 03/24/17 Yakov Carnes MD [address] [place] [id number] [email or web address] Primary Oncologist Hematology and Oncology 09/07/17 documented as of this encounter Additional Source Comments The information contained in this document represents components of the legal health record. It is not the complete legal health record.[facility]
--- OUTSIDE RECORDS SUMMARY | 2025-03-21 12:47 | XMS_ITS | Clinical Summary ---
Author Organization [employer] Address [address] [place] [address] [address] [place] [address] Care Team Providers Care Legal Process Specialist Name Role Phone Unavailable Primary Care Provider [...] Screening 07/19/2023 07/19/2022 COVID-19 Vaccine (3 - 2024-2 6 season) 2025 11/13/2020, 10/23/2020 Influenza Vaccine (#1) 2025 5, [...] to complete this topic Insurance DENTAL - [facility]
--- OUTSIDE RECORDS SUMMARY | 2025-03-21 12:47 | XMS_ITS | Clinical Summary ---
Author Organization [facility] Address [address] [place] [phone] Phone Care Team Providers Care Environmental Compliance Manager Name Role Phone Verónica Pete NP Primary Care Provider [phone] Yakov Carnes MD Unavailable [phone] Allergies Active Allergy Reactions Criticality Noted Date [...] 2009 ZOSTER VACCINES (1 of 2) 2009 OSTEOPOROSIS SCREENING INITI AL (ONE-TIME) 2024 INFLUENZA VACCINE (#1) 2025 5, 03/30/2013 COVID-19 VACCINE (3 - 2024-2 6 season) 2025 11/13/2020, 10/23/2020 Adult Td,Tdap Booster 01/15/2029 01/15/2019 RSV VACCINE [...] topic Medical Devices Not on file Insurance [facility] MEDICARE REPLACEMENT JESSICA BINGHAM [id number] * Guarantor: Cayla Ramos Account Type Relation to Patient Date of Phone Billing Address Personal/Family Self 1960 [address] [place] [id number] [facility] MEDICARE REPLACEMENT [facility] MEDICARE REPLACEMENT [facility] MEDICARE REPLACEMENT [address] MEDICARE REPLACEMENT [facility] MEDICARE REPLACEMENT JESSICA B[place] [id number] [facility] MEDICARE REPLACEMENT JESSICA B[place] [id number] Care Teams Environmental Compliance Manager Relationship Specialty Start Date End Date Verónica Pete NP PCP - General 03/24/17 Yakov Carnes MD [address] [place] [phone] Primary Oncologist Hematology and Oncology 09/07/17 Additional Source Comments The information contained in this document represents components of the legal health record. It is not the complete legal health record.[facility]
== END 2025-03-21 11:04 | disposition home or self-care (01) ==
LOC: HO.HPS 10:21
PROVIDERS: PCP Physician Assistant; Visit Provider Internal Medicine
DX: J98.4 Other disorders of lung (principal); J44.9 Chronic obstructive pulmonary disease, unspecified; R09.02 Hypoxemia; R05.3 Chronic cough; J84.9 Interstitial pulmonary disease, unspecified
CPT/HCPCS: 99214

== ENCOUNTER → 2025-03-21 10:20 | Outpatient (BNVA) | payer OTHER, SELFPAY | PROVIDERS: PCP Physician Assistant; Visit Provider Internal Medicine | DX: J98.4 Other disorders of lung (principal); J44.9 Chronic obstructive pulmonary disease, unspecified; R09.02 Hypoxemia; R05.3 Chronic cough; J84.9 Interstitial pulmonary disease, unspecified; Z99.81 Dependence on supplemental oxygen | CPT/HCPCS: 99212 ==

== ENCOUNTER 2025-03-27 15:09 | Outpatient (AMB) | payer OTHER, SELFPAY ==
--- NOTE | 2025-03-27 15:12 | MHC.PC.OV ---
Vital Signs 03/27/25 15:20 Height 4 ft 11 in Weight 155 lb 4 oz BMI 31.4 BP 112/72 Blood Pressure Location Lt brachial Position Sitting Respiration 20 Pulse 79 Pulse Source Pulse Oximeter Temp 97.8 F Temp Source Oral Pulse Oximetry (%) 96 Oxygen Delivery Method Room Air Intake Visit Reasons: follow up depression/anxiety Intake Note: depression/anxiety [facility] Of Hospital Medicine Required: No Allergies amoxicillin (Amoxicillin) Allergy (Unknown, Verified 03/27/25 15:17) UNKNOWN clavulanic acid (Augmentin) Allergy (Unknown, Verified 03/27/25 15:17) Unknown penicillin G (PENICILLIN G) Allergy (Unknown, Verified 03/27/25 15:17) UNKNOWN Medication List - Last Reconciled 03/27/25 by Pallavi Soni PA-C albuterol sulfate 2.5 mg (3 mL) inhalation Q4-6H PRN albuterol sulfate 90 mcg/actuation 2 puffs PO Q4H PRN ascorbate calcium (vitamin C) 500 mg PO DAILY Breo Ellipta 200-25 mcg/dose (fluticasone furoate-vilanterol) 1 ea PO DAILY NS cetirizine 10 mg PO DAILY diaper,brief,adult,disposable As directed BID fluticasone propionate 50 mcg/actuation (Flonase Allergy Relief) 2 sprays intranasal DAILY 30 days levothyroxine 75 mcg PO DAILY miscellaneous medical supply As directed ay-lm-ohzve-lutein-herbal 293 80 mcg-166.7 mcg-66.7 mg (Alive Premium Women's 50 Plus) tabs PO nystatin 5 mL PO DAILY PRN underpads (Bed Underpads) As directed nightly Tobacco use date assessed: 03/27/25 Fall risk assessment: No Falls in past year Last assessed Fall Risk: 03/27/25 Dental Screening Dental Screen Date: 03/27/25 Did you have a dental visit in the last 12 months?: No Did you have a dental problem in the last 6 months where you did not have access to dental care?: No Was dental information given to patient?: Patient has dentist HPI follow up depression/anxiety HPI Details Patient is a 64-year-old female who presents today for a follow up. She has a significant past medical history of hyperlipidemia, hypothyroidism, osteoporosis, anxiety, depression, interstitial lung disease, pulmonary hypertension, O2 dependence, AAYUSH in RAD. CV: Blood pressure today in the office is 112/72. Last lipids were slightly elevated. PULM: Follows with pulmonology and is currently on Breo, albuterol as needed, daily, continuous oxygen use and CPAP. Psych: Anxiety and depression is flared as she is actively involved with [employer] and recently has been struggling with issues with her daughter and having to take custody of some of her grandchildren. She has a prescription for hydroxyzine to use as needed for panic attack but has not use this. She does think she would benefit from something to take daily. Endo: On levothyroxine 75 mcg daily for her hypothyroidism. Follow up with endocrinology for osteoporosis Msk: States that she does have low back pain and with her breathing has a hard time standing for a long period of time and wanted a shower chair. Right now she is using a child's stool in sitting on that in the shower. The pain does not radiate down her legs at the moment. It waxes and wanes in intensity. She gets weak and winded with standing for a long time. She also is requesting a bed rail as she has balance issues getting up in the morning is sometimes feels weak. She is not interested in going to physical therapy or occupational therapy. Uro: Has a history of urinary incontinence with coughing. States that sometimes she needs a pad at night and something under her she in case she wets the bed. Mammo: 01/2025 Bone density: Up-to-date, [id number] with endocrinology COUNT INCLUDES THE [facility] Medical History Abnormal myocardial perfusion study O2 dependent Major depressive disorder, recurrent, mild Generalized anxiety disorder Chronic sinusitis ILD (interstitial lung disease) Fatigue Cough Hypoxemia Sore throat and laryngitis Obstructive airway disease Restrictive airway disease Surgical History History of tubal ligation Family History Father No problems noted. Mother Atrial fibrillation Interstitial lung disease Brother Heart valve replaced Social History Housing: House Alcohol intake: never Patient Tobacco Use Status: Never used Tobacco e-Cigarette/Vaping Use: Never Used service: No Current occupational status: disabled Current occupational exposures/hazards: No Cognitive needs: No Hearing needs: No Vision needs: Yes (cataracts) Questionnaire PHQ-9 Over the last 2 weeks, how often have you been bothered by any of the following problems? 1. Little interest or pleasure in doing things: several days 2. Feeling down, depressed, or hopeless: not at all 4. Feeling tired or having little energy: not at all 5. Poor appetite or overeating: not at all 6. Feeling bad about yourself - or that you are a failure or have let yourself or your family down: not at all 7. Trouble concentrating on things, such as reading the newspaper or watching television: not at all 8. Moving or speaking so slowly that other people could have noticed. Or the opposite - being so fidgety or restless that you have been moving around a lot more than usual: not at all 9. Thoughts that you would be better off or of hurting yourself in some way: not at all [id number] - PHQ-9 Billing: Yes Source: Developed by Drs. Shane Guajardo, Estrella Broderick, Christopher Burden and colleagues, with an educational cleo from [employer]. Thrive Questionnaire I am a: Patient What is your living situation today?: I have a steady place to live Within the past 12 months, did the food you bought not last and you didn't have the money to get more?: I choose not to answer this question Within the past 12 months, did you worry whether your food would run out before you got money to buy more?: I choose not to answer this question Do you have trouble paying for medicines?: No Do you have trouble getting transportation to medical appointments?: Yes Do you have trouble paying your heating and electricity bill?: No Do you have trouble taking care of your child, family member or friend?: No Do you have trouble with day-to-day activities such as bathing, preparing meals, shopping, managing finances, etc.?: Yes Are you currently unemployed and looking for a job?: No Are you interested in more education?: No Please select the resources that you would like help with: None Currently or been in a relationship where the following occur: No concerns reported THRIVE Score: 1 AUDIT C Alcohol Use Questionnaire (AUDIT-C) 1. How often do you have a drink containing alcohol?: Never Total Score: 0 ARABELLA-7 AMB Questionnaire ARABELLA-7 Date ARABELLA - 7 assessed: 03/27/25 Feeling nervous, anxious, or on edge: 0 = Not at all Not being able to stop or control worryin = Not at all Worrying too much about different things: 0 = Not at all Trouble relaxin = Not at all Being so restless that it is hard to sit still: 0 = Not at all Becoming easily annoyed or irritable: 0 = Not at all Feeling afraid as if something awful might happen: 0 = Not at all Total ARABELLA-7 score (0-4 normal; 5-9 mild; 10-14 moderate; 15-21 severe): 0 Source: Developed by Drs. Shane Guajardo, Estrella Broderick, Christopher Burden and colleagues, with an educational cleo from [employer]. ARABELLA-7 Assessment Billing ARABELLA-7 Assessment Tool: ARABELLA-7 Assessment 73252 Physical exam (Primary Care) Tobacco/Smoking Status: Tobacco use Status Tobacco use date assessed 01/12/24 03/27/25 15:15 Patient Tobacco Use Status Never used Tobacco 03/27/25 15:15 e-Cigarette/Vaping Use Never Used 03/27/25 15:15 Currently or been in a relationship where the following occur: No concerns reported Const Orientation/consciousness: patient oriented x3 HENMT Ears: hearing grossly normal bilaterally Neck Thyroid: Thyroid normal Lymphatic: no lymphadenopathy noted Resp Auscultation: clear to auscultation bilaterally Cardio Rate: regular rate Rhythm: regular rhythm Heart sounds: S1 normal heart sound present and S2 normal heart sound present GI Inspection: Yes normal to inspection Palpation (GI): Soft to palpation and Other GI palpation findings present (nontender, no cva tenderness) Auscultation: normoactive bowel sounds Rectal Exam - Female: deferred Skin General skin exam: no rashes or lesions noted Neuro General: patient oriented x3, gait normal and no focal motor deficits Results Reviewed Results Reviewed: Laboratory Tests 10/05/23 12/21/23 09:49 15:12 Sodium 142 Potassium 4.0 Chloride 104 Carbon Dioxide 29 Anion Gap 13 BUN 11 Creatinine 0.72 Estimated GFR > 60 Fasting Glucose 89 Calcium 9.5 Iron 108 TIBC 352 % Saturation 31 Unsat Iron Binding 244 AST 25 ALT 17 Alkaline Phosphatase 119 H Total Protein 7.3 Albumin 4.5 Triglycerides 125 Cholesterol 186 LDL Cholesterol, Calc 121 H HDL Cholesterol 40 L TSH 1.61 Coding Level of Care Code Est Pt Level 4 (08129) Complex EM visit Add On G2211 Diagnoses Generalized anxiety disorder F41.1 Major depressive disorder, recurrent, mild F33.0 Dyslipidemia E78.5 Acquired hypothyroidism E03.9 Hypothyroidism type: acquired Unsteady gait R26.81 Chronic fatigue R53.82 Fatigue type: chronic, unspecified Lumbar pain M54.50 Vitamin D deficiency E55.9 Additional Codes ARABELLA-7 Assessment Billing - ARABELLA-7 Assessment Tool: ARABELLA-7 Assessment 65045 ([id number]) PHQ-9 - 22061 - PHQ-9 Billing: Yes ([id number]) Assessment & Plan Assessment & Plan (1) Generalized anxiety disorder: Code(s): F41.1 - Generalized anxiety disorder Category: Medical Plan: Stable (2) Major depressive disorder, recurrent, mild: Code(s): F33.0 - Major depressive disorder, recurrent, mild Category: Medical Plan: Stable. Does not want change in medication (3) Dyslipidemia: Code(s): E78.5 - Hyperlipidemia, unspecified Category: Medical Plan: We will monitor (4) Hypothyroidism: Code(s): E03.9 - Hypothyroidism, unspecified Category: Medical Qualifiers: Hypothyroidism type: acquired Qualified Code(s): E03.9 - Hypothyroidism, unspecified Plan: TSH ordered (5) Unsteady gait: Code(s): R26.81 - Unsteadiness on feet Category: Medical Plan: Assistive devices ordered Offered referral to PT/OT (6) Fatigue: Code(s): R53.83 - Other fatigue Category: Medical Qualifiers: Fatigue type: chronic, unspecified Qualified Code(s): R53.82 - Chronic fatigue, unspecified Plan: Labs ordered (7) Lumbar pain: Code(s): M54.50 - Low back pain, unspecified Category: Medical Plan: X-ray ordered As above offered referral (8) Vitamin D deficiency: Code(s): E55.9 - Vitamin D deficiency, unspecified Category: Medical Plan: We will check vitamin-D Orders: Orders Comprehensive Baltic. Panel Fast Today E03.9 - Hypothyroidism, unspecified, F33.0 - Major depressive disorder, recurrent, mild, F41.1 - Generalized anxiety disorder, M54.50 - Low back pain, unspecified, R26.81 - Unsteadiness on feet, R53.82 - Chronic fatigue, unspecified Lipid Panel Today E03.9 - Hypothyroidism, unspecified, F33.0 - Major depressive disorder, recurrent, mild, F41.1 - Generalized anxiety disorder, M54.50 - Low back pain, unspecified, R26.81 - Unsteadiness on feet, R53.82 - Chronic fatigue, unspecified UA CC w/rflx Micro + Cult Today E03.9 - Hypothyroidism, unspecified, F33.0 - Major depressive disorder, recurrent, mild, F41.1 - Generalized anxiety disorder, M54.50 - Low back pain, unspecified, R26.81 - Unsteadiness on feet, R30.0 - Dysuria, R53.82 - Chronic fatigue, unspecified Ferritin Today E03.9 - Hypothyroidism, unspecified, F33.0 - Major depressive disorder, recurrent, mild, F41.1 - Generalized anxiety disorder, M54.50 - Low back pain, unspecified, R26.81 - Unsteadiness on feet, R53.82 - Chronic fatigue, unspecified Vitamin D 25-OH Total Today E55.9 - Vitamin D deficiency, unspecified Complete Blood Count Auto Diff Today E03.9 - Hypothyroidism, unspecified, F33.0 - Major depressive disorder, recurrent, mild, F41.1 - Generalized anxiety disorder, M54.50 - Low back pain, unspecified, R26.81 - Unsteadiness on feet, R53.82 - Chronic fatigue, unspecified TSH reflex Free T4 Today E03.9 - Hypothyroidism, unspecified, F33.0 - Major depressive disorder, recurrent, mild, F41.1 - Generalized anxiety disorder, M54.50 - Low back pain, unspecified, R26.81 - Unsteadiness on feet, R53.82 - Chronic fatigue, unspecified Microalbumin, Random (w Creat) Today E03.9 - Hypothyroidism, unspecified, F33.0 - Major depressive disorder, recurrent, mild, F41.1 - Generalized anxiety disorder, M54.50 - Low back pain, unspecified, R26.81 - Unsteadiness on feet, R53.82 - Chronic fatigue, unspecified IRON PROFILE Today E03.9 - Hypothyroidism, unspecified, F33.0 - Major depressive disorder, recurrent, mild, F41.1 - Generalized anxiety disorder, M54.50 - Low back pain, unspecified, R26.81 - Unsteadiness on feet, R53.82 - Chronic fatigue, unspecified XR lumbar spine 2-3V Today M54.50 - Low back pain, unspecified Medications: New miscellaneous medical supply shower head replacement As directed 1 ea 0RF J84.9 - Interstitial pulmonary disease, unspecified, R26.81 - Unsteadiness on feet, Z99.81 - Dependence on supplemental oxygen miscellaneous medical supply use side rails daily As directed 2 ea 0RF incontinence pad, liner, disp Use daily As directed 30 ea 3RF R32 - Unspecified urinary incontinence miscellaneous medical supply Use shower chair daily As directed 1 ea 0RF J84.9 - Interstitial pulmonary disease, unspecified, R26.81 - Unsteadiness on feet, Z99.81 - Dependence on supplemental oxygen Refilled underpads (Bed Underpads) As directed nightly 100 ea 3RF R32 - Unspecified urinary incontinence
[2025-03-27 15:20] VITALS: BP 112/72; PULSE 79; RESP 20; TEMP 36.6; O2SAT 96; BMI 31.4
--- OUTSIDE RECORDS SUMMARY | 2025-03-27 21:24 | XMS_ITS | Encounter Summary ---
Author Organization [facility] Address [address] [place] [phone] Phone Care Team Providers Care [employer] Special [employer] Teacher Name Role Phone Verónica Pete NP Primary Care Provider [phone] Yakov Carnes MD Unavailable [phone] Encounter Details Date Type Department Care Team (Latest Contact Info) Description 08/29/2020 Transcribe Orders Virtual Department [address] [place] [id number] Jennifer Greer MD [address] [place] [address] [phone] [email or web address] Sore throat (Primary [...] be available within 24 to 48 hrs. [facility] Symptomatic? YES [facility] 09/01/2020 1:29 PM EDT 09/01/2020 5:56 PM EDT Jennifer Greer MD BODY FLUIDS AND STOOLS ORDER WILLIAN Final Result [facility] [address] [place] [address] [facility] [address] [place] [phone] documented in this encounter Visit Diagnoses Diagnosis Sore throat- Primary Acute pharyngitis documented in this encounter Additional Health Concerns Infection Onset Date Last Indicated Resolved Time CoV-Risk 08/29/2020 09/01/2020 09/08/2020 1:24 AM EDT CoV-Risk 03/16/2021 03/16/2021 03/26/2021 1:23 AM EDT documented as of this encounter Care Teams [employer] Special [employer] Teacher Relationship Specialty Start Date End Date Verónica Pete NP PCP - General 03/24/17 Yakov Carnes MD [address] [place] [address] Primary Oncologist Hematology and Oncology 09/07/17 documented as of this encounter Additional Source Comments The information contained in this document represents components of the legal health record. It is not the complete legal health record.[facility]
--- OUTSIDE RECORDS SUMMARY | 2025-03-27 21:24 | XMS_ITS | Clinical Summary ---
Author Organization [facility] Address [address] [place] [phone] Phone Care Team Providers Care Agriculture Research Director Name Role Phone Verónica Pete NP Primary Care Provider [phone] Yakov Carnes MD Unavailable [phone] Allergies Active Allergy Reactions Criticality Noted [...] topic Medical Devices Not on file Insurance [facility] MEDICARE REPLACEMENT JESSICA BINGHAM [id number] * Guarantor: Cayla Ramos Account Type Relation to Patient Date of Phone Billing Address Personal/Family Self 1960 [address] [place] [id number] [facility] MEDICARE REPLACEMENT [facility] MEDICARE REPLACEMENT [facility] MEDICARE REPLACEMENT [address] MEDICARE REPLACEMENT [facility] MEDICARE REPLACEMENT JESSICA BINGHAM [id number] [facility] MEDICARE REPLACEMENT JESSICA BING[place]AM [id number] Care Teams Agriculture Research Director Relationship Specialty Start Date End Date Verónica Pete NP PCP - General 03/24/17 Yakov Carnes MD [address] [place] [phone] Primary Oncologist Hematology and Oncology 09/07/17 Additional Source Comments The information contained in this document represents components of the legal health record. It is not the complete legal health record.[facility]
--- OUTSIDE RECORDS SUMMARY | 2025-03-27 21:24 | XMS_ITS | Clinical Summary ---
Author Organization [employer] Address [address] [place] [address] [address] [place] [address] Care Team Providers Care Industrial Engineering Manager Name Role Phone Unavailable Primary Care Provider [...] to complete this topic Insurance DENTAL - [facility]
--- OUTSIDE RECORDS SUMMARY | 2025-03-27 21:24 | XMS_ITS | Encounter Summary ---
Author Organization [facility] Address [address] [place] [phone] Phone Care Team Providers Care Psychiatric Social Worker Name Role Phone Verónica Pete NP Primary Care Provider [phone] Yakov Carnes MD Unavailable [phone] Reason for Referral * Outpatient Procedure - Closed Specialty Diagnoses / Procedures Referred By Contac t Referred To Contact Diagnoses Dyspnea on exertion Other forms of dyspnea Procedures Adult Echo TTE Verónica Pete NP Phone: tel: fax: Referral ID Status Reason Start Date Expiration Date Visits Re quested Visits Authorized [id number] Closed 06/12/2019 06/11/2020 1 1 Encounter Details Date Type Department Care Team (Latest Contact Info) Description 06/12/2019 Transcribe Orders Virtual Department [address] [place] [address] Verónica Pete NP [address] [place] [address] Dyspnea on exertion (Primary Dx); Other forms [...] documented as of this encounter Care Teams Psychiatric Social Worker Relationship Specialty Start Date End Date Verónica Pete NP PCP - General 03/24/17 Yakov Carnes MD [address] [place] [id number] [email or web address] Primary Oncologist Hematology and Oncology 09/07/17 documented as of this encounter Additional Source Comments The information contained in this document represents components of the legal health record. It is not the complete legal health record.[facility]
== END 2025-03-27 15:53 | disposition home or self-care (01) ==
LOC: HO.HMCFM 15:10
PROVIDERS: PCP Physician Assistant; Visit Provider Physician Assistant
DX: F41.1 Generalized anxiety disorder (principal); F33.0 Major depressive disorder, recurrent, mild; E78.5 Hyperlipidemia, unspecified; E03.9 Hypothyroidism, unspecified; R26.81 Unsteadiness on feet; R53.82 Chronic fatigue, unspecified; M54.50 Low back pain, unspecified; E55.9 Vitamin D deficiency, unspecified

== ENCOUNTER 2025-03-27 15:09 | Outpatient (REF) | payer OTHER, SELFPAY ==
[2025-03-27 18:46] LABS: Hematocrit 46.0 % (37.0-47.0); Hemoglobin 13.8 g/dl (12.0-16.0); Imm Gran Abs Auto 0.08 X10*3/uL (0.00-0.03); Imm Gran Pct Auto 0.5 % (0.0-0.4); Lymphocytes Absolute Auto 4.5 X10*3/uL (1.2-4.9); MANUAL DIFF FLAG SCAN; Mean Corpuscular HGB Conc 30.0 g/dl (31.0-35.0); Mean Corpuscular Hemoglobin 23.7 pg (27.0-33.0); Mean Corpuscular Volume 78.9 fL (80.0-98.0); NRBC Abs Auto 0.000 X10*3/uL (0.0-0.012); NRBC Pct Auto 0.0 /100WBC (0.0-0.2); PLT CLUMP 1; Red Blood Count 5.83 X10*6/uL (4.20-5.50); SCAN SMEAR FLAG 1
[2025-03-27 18:46] LABS: Appearance Urine Clear; Glucose Urine UA Negative (Negative); PH 5.5 (5.0-9.0); Specific Gravity - Urine <= 1.005 (1.005-1.025)
[2025-03-27 19:12] LABS: Microalbum/Creatinine Ratio Ur 18.2 ug/mg cr (<30)
[2025-03-27 19:22] LABS: Alanine Aminotransferase 30 U/L (0-31); Albumin Level 4.8 g/dL (3.5-5.0); Alkaline Phosphatase 146 U/L (39-117); Anion Gap 11 (12-20); Aspartate Amino Transferase 39 U/L (5-31); Blood Urea Nitrogen 7 mg/dL (9-16); Calcium 9.5 mg/dL (8.4-10.2); Carbon Dioxide 29 mmol/L (22-29); Chloride 106 mmol/L (96-108); Cholesterol 202 mg/dL (<200); Estimated Glomerular Filt Rate > 60; HDL Cholesterol 39 mg/dL (>40); Iron 58 mcg/dL (30-160); Percent Iron Saturation 16 % (15-50); Potassium 4.4 mmol/L (3.3-5.1); Sodium 142 mmol/L (135-145); Total Iron Binding Capacity 354 mcg/dL (228-428); Total Protein 7.4 g/dL (6.5-8.0); Triglycerides 128 mg/dL (<150); Unsaturated Iron Binding 296 ug/dL
[2025-03-27 19:39] LABS: Ferritin 18 ng/mL (10-250)
[2025-03-27 19:46] LABS: White Blood Count 16.0 X10*3/uL (4.8-10.8)
== END 2025-03-27 15:10 | disposition home or self-care (01) ==
LOC: HO.WFDLDS 15:09
PROVIDERS: PCP Physician Assistant; Visit Provider Physician Assistant
DX: R26.81 Unsteadiness on feet (principal); R30.0 Dysuria; R53.82 Chronic fatigue, unspecified; E03.9 Hypothyroidism, unspecified; F41.1 Generalized anxiety disorder; F33.0 Major depressive disorder, recurrent, mild; M54.50 Low back pain, unspecified; E55.9 Vitamin D deficiency, unspecified; E78.5 Hyperlipidemia, unspecified; Z79.890 Hormone replacement therapy; Z79.899 Other long term (current) drug therapy
CPT/HCPCS: 36415; 80053; 80061; 81003; 82043; 82306; 82570; 82728; 83540; 84443; 85025; 96127; 99212

== ENCOUNTER 2025-06-05 11:01 | Outpatient (AMB) | payer OTHER, SELFPAY ==
--- NOTE | 2025-06-05 11:11 | MHC.PC.OV ---
Vital Signs 06/05/25 11:13 Height 4 ft 11 in Weight 152 lb 6 oz BMI 30.8 BP 108/82 Blood Pressure Location Rt brachial Position Sitting Respiration 16 Pulse 75 Pulse Source Pulse Oximeter Pulse Oximetry (%) 95 Oxygen Delivery Method Nasal Cannula Oxygen Flow Rate 2 Intake Visit Reasons: med check Intake Note: Medication follow up. Needs refill on levothyroxine and cetirizne Teacher Education Director Required: No Allergies amoxicillin (Amoxicillin) Allergy (Unknown, Verified 06/05/25 11:12) UNKNOWN clavulanic acid (Augmentin) Allergy (Unknown, Verified 06/05/25 11:12) Unknown penicillin G (PENICILLIN G) Allergy (Unknown, Verified 06/05/25 11:12) UNKNOWN Medication List - Last Reconciled 06/05/25 by Pallavi Soni PA-C albuterol sulfate 2.5 mg (3 mL) inhalation Q4-6H PRN albuterol sulfate 90 mcg/actuation 2 puffs PO Q4H PRN ascorbate calcium (vitamin C) 500 mg PO DAILY Breo Ellipta 200-25 mcg/dose (fluticasone furoate-vilanterol) 1 ea PO DAILY NS cetirizine 10 mg PO DAILY diaper,brief,adult,disposable As directed BID fluticasone propionate 50 mcg/actuation (Flonase Allergy Relief) 2 sprays intranasal DAILY 30 days incontinence pad, liner, disp Use daily As directed levothyroxine 75 mcg PO DAILY miscellaneous medical supply As directed miscellaneous medical supply shower head replacement As directed miscellaneous medical supply use side rails daily As directed miscellaneous medical supply Use shower chair daily As directed tq-ny-xxlcl-lutein-herbal 293 80 mcg-166.7 mcg-66.7 mg (Alive Premium Women's 50 Plus) tabs PO nystatin 5 mL PO DAILY PRN polymyxin B sulf-trimethoprim 10,000 unit- 1 mg/mL 1 drp ophthalmic (eye) QID 10 days underpads (Bed Underpads) As directed nightly Tobacco use date assessed: 06/05/25 Dental Screening Dental Screen Date: 03/27/25 HPI med check HPI Details Patient is a 64-year-old female who presents today for a follow up. She has a significant past medical history of hyperlipidemia, hypothyroidism, osteoporosis, anxiety, depression, interstitial lung disease, pulmonary hypertension, O2 dependence, AAYUSH in RAD. CV: Blood pressure today in the office is 108/82. Last lipids were slightly elevated. Heme: Last labs showed I will abnormal CBC with an elevated white blood cell count and red blood cell count and patient tells me today that in the past she used to follow with a structured cabling technician in [place] for this. She states that it has been a bit since she has been seen but she was being followed for her abnormal CBC and her easy bruising. She states that this does appear to be unchanged. HEENT: Believes she has pink eye. She states that her grandson who lives with her has pink eye and was diagnosed 2 days ago. They share a bed as she currently has custody of him and has had him since infancy. PULM: Follows with pulmonology and is currently on Breo, albuterol as needed, daily, continuous oxygen use and CPAP. Psych: Anxiety and depression is flared as she is actively involved with [employer] and recently has been struggling with issues with her daughter and having to take custody of some of her grandchildren. She has a prescription for hydroxyzine to use as needed for panic attack but has not use this. She does think she would benefit from something to take daily and seeing someone but does not want to do this at this point. No SI/HI. Endo: On levothyroxine 75 mcg daily for her hypothyroidism. Follow up with endocrinology for osteoporosis Uro: Has a history of urinary incontinence with coughing. States that sometimes she needs a pad at night and something under her she in case she wets the bed. Mammo: 01/2025 Bone density: Up-to-date, [id number] with endocrinology [facility] Medical History Abnormal myocardial perfusion study O2 dependent Major depressive disorder, recurrent, mild Generalized anxiety disorder Chronic sinusitis ILD (interstitial lung disease) Fatigue Cough Hypoxemia Sore throat and laryngitis Obstructive airway disease Restrictive airway disease Surgical History History of tubal ligation Family History Father No problems noted. Mother Atrial fibrillation Interstitial lung disease Brother Heart valve replaced Social History (Updated 06/05/25 @ 11:23 by DEE Calixto Housing: House Alcohol intake: never Patient Tobacco Use Status: Never used Tobacco e-Cigarette/Vaping Use: Never Used service: No Current occupational status: disabled Current occupational exposures/hazards: No Cognitive needs: No Hearing needs: No Vision needs: Yes (cataracts) Questionnaire PHQ-9 Over the last 2 weeks, how often have you been bothered by any of the following problems? 3. Trouble falling or staying asleep, or sleeping too much: not at all Source: Developed by Drs. Shane Guajardo, Christopher Rea and colleagues, with an educational cleo from [employer]. Thrive Questionnaire Date Thrive assessed: 03/27/25 I am a: Patient What is your living situation today?: I have a steady place to live Within the past 12 months, did the food you bought not last and you didn't have the money to get more?: I choose not to answer this question Within the past 12 months, did you worry whether your food would run out before you got money to buy more?: I choose not to answer this question Do you have trouble paying for medicines?: No Do you have trouble getting transportation to medical appointments?: Yes Do you have trouble paying your heating and electricity bill?: No Do you have trouble taking care of your child, family member or friend?: No Do you have trouble with day-to-day activities such as bathing, preparing meals, shopping, managing finances, etc.?: Yes Are you currently unemployed and looking for a job?: No Are you interested in more education?: No Currently or been in a relationship where the following occur: No concerns reported THRIVE Score: 1 ARABELLA-7 AMB Questionnaire ARABELLA-7 Date ARABELLA - 7 assessed: 03/27/25 Source: Developed by Drs. Shane Guajardo, Estrella Broderick, Christopher Burden and colleagues, with an educational cleo from [employer]. Physical exam (Primary Care) Vital Signs: Last Vital Signs Pulse 75 06/05/25 11:13 Resp 16 06/05/25 11:13 BP 108/82 06/05/25 11:13 Pulse Ox 95 06/05/25 11:13 Oxygen Delivery Method Nasal Cannula 06/05/25 11:13 Oxygen Flow Rate 2 06/05/25 11:13 BMI result Body Mass Index 30.8 Tobacco/Smoking Status: Tobacco use Status Tobacco use date assessed 06/05/25 06/05/25 11:23 Patient Tobacco Use Status Never used Tobacco 06/05/25 11:23 e-Cigarette/Vaping Use Never Used 06/05/25 11:23 Thrive Assessment: Date of Thrive Assessment Date Thrive assessed 03/27/25 06/05/25 11:23 Currently or been in a relationship where the following occur: No concerns reported Const Orientation/consciousness: patient oriented x3 HENMT Ears: hearing grossly normal bilaterally Face and sinus: Yes normal facial exam Eyes Other: EOMs intact. Conjunctiva slightly erythematous. Clear drainage noted. No periorbital findings. Neck Thyroid: Thyroid normal Lymphatic: no lymphadenopathy noted Resp Auscultation: clear to auscultation bilaterally Cardio Rate: regular rate Rhythm: regular rhythm Heart sounds: S1 normal heart sound present and S2 normal heart sound present GI Inspection: Yes normal to inspection Palpation (GI): Soft to palpation and Other GI palpation findings present (nontender, no cva tenderness) Auscultation: normoactive bowel sounds Rectal Exam - Female: deferred Skin General skin exam: no rashes or lesions noted Neuro General: patient oriented x3, gait normal and no focal motor deficits Coding Level of Care Code Est Pt Level 4 (74542) Add On Problem Visit Only Diagnoses Abnormal CBC R79.89 Easy bruising R23.3 ILD (interstitial lung disease) J84.9 Acquired hypothyroidism E03.9 Hypothyroidism type: acquired Conjunctivitis H10.9 Assessment & Plan Assessment & Plan (1) Abnormal CBC: Code(s): R79.89 - Other specified abnormal findings of blood chemistry Category: Medical Plan: We will check labs. Referral to Hematology (2) Easy bruising: Code(s): R23.3 - Spontaneous ecchymoses Category: Medical Plan: As above (3) ILD (interstitial lung disease): Comment: CHEST X-RAYS HAVE SHOWN INCREASED BRONCHOVASCULAR MARKINGS ESPECIALLY IN THE LOWER LOBES, SHE HAS PREVIOUS HISTORY OF ALVEOLITIS . THIS IS THE CAUSE OF HER RESTRICTIVE LUNG DISEASE, AND HYPOXEMIA. Code(s): J84.9 - Interstitial pulmonary disease, unspecified Category: Medical Plan: Stable. Following with pulmonology (4) Hypothyroidism: Code(s): E03.9 - Hypothyroidism, unspecified Category: Medical Qualifiers: Hypothyroidism type: acquired Qualified Code(s): E03.9 - Hypothyroidism, unspecified Plan: Continue current regimen (5) Conjunctivitis: Code(s): H10.9 - Unspecified conjunctivitis Plan: Drops ordered. Does not use contacts. Advised her to rinse her eyes, apply warm compresses and discuss proper hygiene. She will let me know if anything worsens or changes or fails to improve. Orders: Orders Complete Blood Count Auto Diff 06/05/25 E03.9 - Hypothyroidism, unspecified, J84.9 - Interstitial pulmonary disease, unspecified, R23.3 - Spontaneous ecchymoses, R79.89 - Other specified abnormal findings of blood chemistry Ferritin 06/05/25 E03.9 - Hypothyroidism, unspecified, J84.9 - Interstitial pulmonary disease, unspecified, R23.3 - Spontaneous ecchymoses, R79.89 - Other specified abnormal findings of blood chemistry IRON PROFILE 06/05/25 E03.9 - Hypothyroidism, unspecified, J84.9 - Interstitial pulmonary disease, unspecified, R23.3 - Spontaneous ecchymoses, R79.89 - Other specified abnormal findings of blood chemistry XR lumbar spine 2-3V 06/05/25 M54.50 - Low back pain, unspecified XR cervical spine 3V 06/05/25 M54.2 - Cervicalgia Comprehensive Met. Panel 06/05/25 E03.9 - Hypothyroidism, unspecified, J84.9 - Interstitial pulmonary disease, unspecified, R23.3 - Spontaneous ecchymoses, R79.89 - Other specified abnormal findings of blood chemistry Vitamin B12 and Folate 06/05/25 E03.9 - Hypothyroidism, unspecified, J84.9 - Interstitial pulmonary disease, unspecified, R23.3 - Spontaneous ecchymoses, R79.89 - Other specified abnormal findings of blood chemistry TSH reflex Free T4 06/05/25 E03.9 - Hypothyroidism, unspecified, J84.9 - Interstitial pulmonary disease, unspecified, R23.3 - Spontaneous ecchymoses, R79.89 - Other specified abnormal findings of blood chemistry Referrals Hematology & Oncology Referral E03.9 - Hypothyroidism, unspecified, J84.9 - Interstitial pulmonary disease, unspecified, R23.3 - Spontaneous ecchymoses, R79.89 - Other specified abnormal findings of blood chemistry Medications: New polymyxin B sulf-trimethoprim 10,000 unit- 1 mg/mL while awake; do not exceed 6 doses in 24 hours 1 drp ophthalmic (eye) QID 10 mL 0RF 10 days Refilled cetirizine 10 mg PO DAILY 90 tabs 1RF levothyroxine 75 mcg PO DAILY 90 tabs 3RF
[2025-06-05 11:13] VITALS: BP 108/82; PULSE 75; RESP 16; O2SAT 95; BMI 30.8
--- OUTSIDE RECORDS SUMMARY | 2025-06-05 12:40 | XMS_ITS | Clinical Summary ---
Author Organization [employer] Address [address] [place] [address] [address] [place] [address] Care Team Providers Care Instrument Mechanic Name Role Phone Unavailable Primary Care Provider [...] to complete this topic Insurance DENTAL - [facility]
--- OUTSIDE RECORDS SUMMARY | 2025-06-05 12:40 | XMS_ITS | Encounter Summary ---
Author Organization [facility] Address [address] [place] [address] Phone Care Team Providers Care Commercial Title Examiner Name Role Phone Verónica Pete NP Primary Care Provider [phone] Yakov Carnes MD Unavailable [phone] Reason for Referral * Outpatient Procedure - Closed Specialty Diagnoses / Procedures Referred By Contac t Referred To Contact Diagnoses Dyspnea on exertion Other forms of dyspnea Procedures Adult Echo TTE Verónica Pete NP Phone: tel: fax: Referral ID Status Reason Start Date Expiration Date Visits Re quested Visits Authorized [id number] Closed 06/12/2019 06/11/2020 1 1 Encounter Details Date Type Department Care Team (Latest Contact Info) Description 06/12/2019 Transcribe Orders Virtual Department [address] [place] [address] Verónica Pete NP [address] [place] [address] Dyspnea on exertion (Primary Dx); Other forms [...] documented as of this encounter Care Teams Commercial Title Examiner Relationship Specialty Start Date End Date Verónica Pete NP PCP - General 03/24/17 Yakov Carnes MD [address] [place] [phone] [email or web address] Primary Oncologist Hematology and Oncology 09/07/17 documented as of this encounter Additional Source Comments The information contained in this document represents components of the legal health record. It is not the complete legal health record.[facility]
--- OUTSIDE RECORDS SUMMARY | 2025-06-05 12:40 | XMS_ITS | Clinical Summary ---
Author Organization [facility] Address [address] [place] [phone] Phone Care Team Providers Care Cobol Mainframe Developer Name Role Phone Verónica Pete NP Primary Care Provider [phone] Yakov Carnes MD Unavailable [phone] Allergies Active Allergy Reactions Criticality Noted [...] topic Medical Devices Not on file Insurance [facility] MEDICARE REPLACEMENT JESSICA BING[place]AM [id number] * Guarantor: Cayla Ramos Account Type Relation to Patient Date of Phone Billing Address Personal/Family Self 1960 [address] [place] [id number] [facility] MEDICARE REPLACEMENT [facility] MEDICARE REPLACEMENT [facility] MEDICARE REPLACEMENT [address] MEDICARE REPLACEMENT [facility] MEDICARE REPLACEMENT [place]ICA [place] [id number] [facility] MEDICARE REPLACEMENT JESSICA BING[place]AM [id number] Care Teams Cobol Mainframe Developer Relationship Specialty Start Date End Date Verónica Pete NP PCP - General 03/24/17 Yakov Carnes MD [address] [place] [phone] Primary Oncologist Hematology and Oncology 09/07/17 Additional Source Comments The information contained in this document represents components of the legal health record. It is not the complete legal health record.[facility]
--- OUTSIDE RECORDS SUMMARY | 2025-06-05 12:40 | XMS_ITS | Encounter Summary ---
Author Organization [facility] Address [address] [place] [address] Phone Care Team Providers Care Oral Surgeon Name Role Phone Verónica Pete NP Primary Care Provider [phone] Yakov Carnes MD Unavailable [phone] Encounter Details Date Type Department Care Team (Latest Contact Info) Description 08/29/2020 Transcribe Orders Virtual Department [address] [place] [phone] Jennifer Greer MD [address] [place] [phone] [email or web address] Sore throat (Primary Dx) Social History [...] be available within 24 to 48 hrs. [facility] Symptomatic? YES [facility] 09/01/2020 1:29 PM EDT 09/01/2020 5:56 PM EDT Jennifer Greer MD LAB GENERAL ORDERABLES Final Result Performing Organization Address City/State/[facility] Co de Phone Number [facility] [address] [place] [address] [facility] [address] [place] [phone] documented in this encounter Visit Diagnoses Diagnosis Sore throat- Primary Acute pharyngitis documented in this encounter Additional Health Concerns Infection Onset Date Last Indicated Resolved Time CoV-Risk 08/29/2020 09/01/2020 09/08/2020 1:24 AM EDT CoV-Risk 03/16/2021 03/16/2021 03/26/2021 1:23 AM EDT documented as of this encounter Care Teams Oral Surgeon Relationship Specialty Start Date End Date Verónica Pete NP PCP - General 03/24/17 Yakov Carnes MD [address] [place] [address] Primary Oncologist Hematology and Oncology 09/07/17 documented as of this encounter Additional Source Comments The information contained in this document represents components of the legal health record. It is not the complete legal health record.[facility]
== END 2025-06-05 11:58 | disposition home or self-care (01) ==
LOC: HO.HMCFM 11:02
PROVIDERS: PCP Physician Assistant; Visit Provider Physician Assistant
DX: R79.89 Other specified abnormal findings of blood chemistry (principal); R23.3 Spontaneous ecchymoses; J84.9 Interstitial pulmonary disease, unspecified; E03.9 Hypothyroidism, unspecified; H10.9 Unspecified conjunctivitis

== ENCOUNTER 2025-06-05 11:01 | Outpatient (REF) | payer OTHER, SELFPAY ==
[2025-06-05 13:46] LABS: Hematocrit 46.7 % (37.0-47.0); Hemoglobin 14.9 g/dl (12.0-16.0); Imm Gran Abs Auto 0.05 X10*3/uL (0.00-0.03); Imm Gran Pct Auto 0.4 % (0.0-0.4); Lymphocytes Absolute Auto 2.7 X10*3/uL (1.2-4.9); MANUAL DIFF FLAG SCAN; Mean Corpuscular HGB Conc 31.9 g/dl (31.0-35.0); Mean Corpuscular Hemoglobin 25.0 pg (27.0-33.0); Mean Corpuscular Volume 78.2 fL (80.0-98.0); NRBC Abs Auto 0.000 X10*3/uL (0.0-0.012); NRBC Pct Auto 0.0 /100WBC (0.0-0.2); PLT CLUMP 1; Red Blood Count 5.97 X10*6/uL (4.20-5.50); SCAN SMEAR FLAG 1
[2025-06-05 14:14] LABS: Platelet Count 165 X10*3/uL (160-400); White Blood Count 13.2 X10*3/uL (4.8-10.8)
[2025-06-05 14:17] LABS: Alanine Aminotransferase 25 U/L (0-31); Albumin Level 4.9 g/dL (3.5-5.0); Alkaline Phosphatase 133 U/L (39-117); Anion Gap 11 (12-20); Aspartate Amino Transferase 35 U/L (5-31); Blood Urea Nitrogen 12 mg/dL (9-16); Calcium 10.1 mg/dL (8.4-10.2); Carbon Dioxide 30 mmol/L (22-29); Chloride 107 mmol/L (96-108); Estimated Glomerular Filt Rate > 60; Gamma Glutamyl Transpeptidase 18 U/L (7-33); Iron 65 mcg/dL (30-160); Percent Iron Saturation 18 % (15-50); Potassium 4.4 mmol/L (3.3-5.1); Sodium 144 mmol/L (135-145); Total Iron Binding Capacity 371 mcg/dL (228-428); Total Protein 7.8 g/dL (6.5-8.0); Unsaturated Iron Binding 306 ug/dL
[2025-06-05 14:22] LABS: Parathyroid Hormone Intact 67.0 pg/mL (8.7-77.1)
[2025-06-05 14:39] LABS: Ferritin 19 ng/mL (10-250)
[2025-06-05 14:43] LABS: Folate 12.8 ng/mL (> or = 4.0); Vitamin B12 333 pg/mL (200-900)
== END 2025-06-05 11:02 | disposition home or self-care (01) ==
LOC: HO.LAB 11:01
PROVIDERS: PCP Physician Assistant; Visit Provider Physician Assistant
DX: R94.5 Abnormal results of liver function studies (principal); M81.0 Age-related osteoporosis without current pathological fracture; E55.9 Vitamin D deficiency, unspecified; E78.5 Hyperlipidemia, unspecified; E03.9 Hypothyroidism, unspecified; F41.9 Anxiety disorder, unspecified; F32.A Depression, unspecified; R32 Unspecified urinary incontinence; R05.9 Cough, unspecified; R79.89 Other specified abnormal findings of blood chemistry; R23.3 Spontaneous ecchymoses; J84.9 Interstitial pulmonary disease, unspecified; H10.9 Unspecified conjunctivitis; Z79.899 Other long term (current) drug therapy; M54.50 Low back pain, unspecified; M54.2 Cervicalgia
CPT/HCPCS: 36415; 80053; 82306; 82607; 82728; 82746; 82977; 83540; 83970; 84443; 85025; 99212